=== PATIENT | female | born 1935 | race Caucasian/White ===

== ENCOUNTER 2017-08-12 18:05 | Emergency (ER) | payer MEDICARE ==
[~2017-08-12] VITALS: Ht 170.2 cm; Wt 114.8 kg
[~2017-08-12 18:05] MED LIST: ASPIRIN325 MG PO; ATIVAN0.5 MG PO; CALCIUM 600 +1 EAC8 PO; CAPTOPRIL50 MG PO; CARAFATE1 GM/10 ML PO; CARVEDILOL6.25 MG PO; CORTISPORIN-TC10 ML TOP; CYMBALTA30 MG PO; DITROPAN XL5 MG PO; FEXOFENADINE H180 MG PO; FOLIC ACID1 MG PO; FUROSEMIDE20 MG PO; GABAPENTIN300 MG PO; LEVAQUIN500 MG PO; LEVOTHYROXINE50 MCG PO; MELOXICAM7.5 MG PO; NASONEX17 GM; NITROSTAT0.4 MG PO; OMEPRAZOLE40 MG PO; POTASSIUM CHLO10 ME1 PO; PROAIR HFA INH8.5 GM; RANITIDINE HCL300 MG PO; SELENIUM200 MC1 PO; SIMVASTATIN40 MG PO; TENORMIN100 MG PO; ULTRAM 50MG50 MG PO; VITAMIN B-6100 MG PO; VITAMIN C500 M4 PO; VITAMIN E400 UNI2 PO; ZOFRAN4 MG PO; ZOLOFT20 MG/1 ML PO
--- OUTSIDE RECORDS SUMMARY | 2017-08-12 18:06 | XMS REPORT | Clinical Summary ---
Author Author Lomas [facility] Organization [facility] Address Unknown Phone Unavailable Care Team Providers Care Cold Working Supervisor Name Role Phone Ayaz Romreo DO PCP Allergies Active Allergy Reactions Severity Noted Date Comments Beef Containing Products Rash Low 10/10/2015 Grass Pollen Rash Low 10/10/2015 Penicillins Itching 10/09/2015 Shrimp Rash Low 10/10/2015 Current Medications Prescription Sig. Disp. Refills Start End Date Status Date simvastatin (ZOCOR) 40 MG Take 40 mg by mouth Active tablet nightly. DULoxetine (CYMBALTA) 30 Take 30 mg by mouth Active MG capsule daily. captopril (CAPOTEN) 50 MG Take 50 mg by mouth 2 Active tablet (two) times a day. pantoprazole (PROTONIX) Take 40 mg by mouth Active 40 MG EC tablet daily. meloxicam (MOBIC) 7.5 MG Take 7.5 mg by mouth Active tablet daily. levothyroxine (SYNTHROID, Take 100 mcg by mouth Active LEVOTHROID) 100 MCG every morning. tablet traMADol (ULTRAM) 50 mg Take 50 mg by mouth every Active tablet 6 (six) hours as needed for moderate pain. cetirizine (ZyrTEC) 10 MG Take 10 mg by mouth daily Active tablet as needed for allergies. furosemide (LASIX) 20 MG Take 20 mg by mouth 2 Active tablet (two) times a day. ranitidine (ZANTAC) 150 Take 150 mg by mouth 2 Active MG tablet (two) times a day. oxybutynin (DITROPAN) 5 Take 5 mg by mouth daily. Active MG tablet Active Problems Problem Noted Date Atherosclerosis of [place] coronary artery of [place] heart 10/10/2015 Atrial fibrillation 10/10/2015 Family History Medical History Relation Name Comments Heart disease Father Hyperlipidemia Father Heart disease Mother Hyperlipidemia Mother Hypertension Mother Kidney disease Mother Relation Name Status Comments Father Mother Social History Tobacco Use Types Packs/Day Years Used Date Never Smoker Alcohol Use Drinks/Week oz/Week Comments No Sex Assigned at Date Recorded Not on file Last Filed Vital Signs Not on file Plan of Treatment Health Maintenance Due Date Last Done Comments ZOSTER VACCINE 1997 PNEUMOCOCCAL 2002 POLYSACCHARIDE VACCINE AGE 65 AND OVER PNEUMOCOCCAL-13 2002 INFLUENZA VACCINE 12/19/2016 Results Not on fileafter 08/11/2016 Insurance Payer Benefit Subscriber ID Type Phone Address Plan / Group [employer] CIGNA xxxxxxxxx O [employer] NG O MCR ADV COMMERCIAL MISC MISC xxxxxxxxx 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
[2017-08-12] MEDS ORDERED: MORPHINE SULFATE 2 MG/ML SYR IV STA ×2 (18:16→19:56)
[2017-08-12] MEDS ORDERED: ONDANSETRON HCL INJ 2 MG/ML VIAL IV STA (18:16)
[2017-08-12] MEDS ORDERED: MORPHINE SULFATE 4 MG/ML SYR IV STA (18:18)
[2017-08-12] MEDS ORDERED: SODIUM CHLORIDE 0.9% 1000ML 1,000 ML IV STA ×2 (18:18)
[2017-08-12] MEDS ORDERED: ONDANSETRON HCL INJ 2 MG/ML VIAL ONE (18:24)
[2017-08-12] MEDS ORDERED: CEFTRIAXONE SOD 1 GM VIAL IM ONE (18:30)
[2017-08-12] MEDS ORDERED: MORPHINE SULFATE 2 MG/ML SYR IV ONE (19:00)
[2017-08-12] MEDS ORDERED: ONDANSETRON HCL INJ 2 MG/ML VIAL IV ONE (19:00)
[2017-08-12] MEDS ORDERED: TAMSULOSIN HCL 0.4 MG CAP PO ONE (19:00)
[2017-08-12 19:04] LABS: BASOPHILS % 0.5 % (0.0-1.0); EOSINOPHILS # (AUTO) 0.1 (0.0-0.4); EOSINOPHILS % 0.7 % (0.0-6.0); HEMATOCRIT 40.5 % (34.2-44.1); HEMOGLOBIN 13.5 g/dL (12.0-16.0); LYMPHOCYTES # (AUTO) 1.5 (1.0-3.2); LYMPHOCYTES % 18.4 % (18.0-39.1); MEAN CORPUSCULAR HEMOGLOBIN 28.9 pg (28-32); MEAN CORPUSCULAR HGB CONC 33.3 g/dL (31-35); MEAN CORPUSCULAR VOLUME 86.7 fL (81-99); MONOCYTES # (AUTO) 0.5 (0.2-0.8); MONOCYTES % 5.9 % (4.4-11.3); NEUTROPHILS # (AUTO) 6.2 (2.1-6.9); PLATELET COUNT 258 x10e3/uL (140-360); RED BLOOD COUNT 4.67 x10e6/uL (3.6-5.1); RED CELL DISTRIBUTION WIDTH 14.2 % (11.7-14.4)
[2017-08-12 19:20] LABS: ALANINE AMINOTRANSFERASE 15 IU/L (0-55); ALBUMIN/GLOBULIN RATIO 1.2 (0.8-2.0); ALKALINE PHOSPHATASE 57 IU/L (40-150); ANION GAP 15.2 mmol/L (8-16); BLOOD UREA NITROGEN 27 mg/dL (7-26); BUN/CREATININE RATIO 22 (6-25); CALCIUM 9.3 mg/dL (8.4-10.2); CARBON DIOXIDE 27 mmol/L (22-29); CHLORIDE 100 mmol/L (98-107); CREATININE, SERUM 1.23 mg/dL (0.57-1.11); EST GLOMERULAR FILTRATION RATE 42 ML/MIN (60-); GLUCOSE 148 mg/dL (74-118); MAGNESIUM 1.9 MG/DL (1.3-2.1); POTASSIUM 4.2 mmol/L (3.5-5.1); SODIUM 138 mmol/L (136-145)
[2017-08-12 19:21] LABS: LIPASE < 4 U/L (8-78)
--- NOTE | 2017-08-12 19:32 | Diagnostic Imaging Report ---
EXAM: CT ABDOMEN AND PELVIS without IV CONTRAST INDICATION: Abdomen and flank pain COMPARISON: CT abdomen and pelvis with IV contrast August 12, 2017 TECHNIQUE: The abdomen and pelvis were scanned using a multidetector helical scanner. Coronal and sagittal reformations were obtained. Renal stone protocol performed. IV Contrast: None Oral Contrast: None CTDIvol has been reviewed. It is below the limits set by the Radiation Protocol Committee (RPC). FINDINGS: LOWER THORAX: Ground glass opacities and interstitial thickening could be related to edema or chronic changes. LIVER: No masses BILIARY: Cholecystectomy. No ductal dilation. SPLEEN: No masses PANCREAS: No masses ADRENALS: No nodules RIGHT KIDNEY: Punctate nonobstructing stone in the inferior pole. No hydronephrosis. No ureteral stones. LEFT KIDNEY: Punctate (1 mm) stone at the left ureterovesicular junction resulting in minimal hydroureteronephrosis and perinephric fat stranding. GI TRACT: No wall thickening or obstruction. Small sliding hiatal hernia. VESSELS: Moderate atherosclerotic changes of the abdominal aorta without aneurysm. 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 PERITONEUM/RETROPERITONEUM: No free air or fluid LYMPH NODES: No lymphadenopathy REPRODUCTIVE ORGANS: Not visualized BLADDER: Normal SOFT TISSUES: Normal BONES: No suspicious bone lesions. IMPRESSION: Punctate stone at the left ureterovesicular junction resulting in minimal hydroureteronephrosis and perinephric fat stranding. Signed by: Dr. Lashaun Amato M.D. on 08/12/2017 7:29 PM
[2017-08-12] MEDS ORDERED: CEFTRIAXONE SOD 1 GM VIAL ONE (19:49)
[2017-08-12 20:14] LABS: BILIRUBIN,URINE NEGATIVE (NEGATIVE); CLARITY,URINE CLEAR (CLEAR); COLOR,URINE YELLOW (YELLOW); KETONES,URINE NEGATIVE (NEGATIVE); LEUKOCYTE ESTERASE ,URINE NEGATIVE (NEGATIVE); NITRITE,URINE NEGATIVE (NEGATIVE); PROTEIN,URINE DIPSTICK NEGATIVE (NEGATIVE); URINE UROBILINOGEN 0.2 mg/dL (0.2 - 1)
[2017-08-12] MEDS ORDERED: CEFTRIAXONE SOD 1 GM VIAL IV ONE (20:30)
[2017-08-12] MEDS ORDERED: ZOFRAN ODT4 MG PO (20:47)
[2017-08-12] MEDS ORDERED: CIPRO500 MG PO (20:47)
[2017-08-12] MEDS ORDERED: FLOMAX0.4 MG PO (20:47)
[2017-08-12] MEDS ORDERED: KETOROLAC TROME10 MG PO (20:47)
[2017-08-12 20:51] VITALS: BP 166/82
[2017-08-12 21:49] LABS: BACTERIA,URINE RARE /HPF; EPITHELIAL CELLS,URINE RARE /LPF; RBC,URINE 0-5 /HPF (0-5); WBC,URINE (MAN) 0-5 /HPF (0-5)
== END 2017-08-12 21:03 | disposition home or self-care (01) ==
LOC: ER 18:05
DX: R10.32 Left lower quadrant pain (principal); R10.12 Left upper quadrant pain; M54.9 Dorsalgia, unspecified; I10 Essential (primary) hypertension; I51.9 Heart disease, unspecified
CPT/HCPCS: 36415; 74176; 80053; 81001; 83690; 83735; 85025; 87086; 93005; 99284; J0696; J2270; J2405; J7030

== ENCOUNTER 2017-12-09 09:57 | Emergency (ER) | payer MEDICARE ==
[~2017-12-09] VITALS: Ht 170.2 cm; Wt 113.4 kg
[~2017-12-09 09:57] MED LIST changes: +CIPRO500 MG PO; +FLOMAX0.4 MG PO; +KETOROLAC TROME10 MG PO; +ZOFRAN ODT4 MG PO
[2017-12-09] MEDS ORDERED: HYDROCODONE/APAP 7.5MG-325MG 1 EA TAB PO PRN (10:30)
[2017-12-09 10:58] LABS: CLARITY,URINE HAZY (CLEAR); COLOR,URINE YELLOW (YELLOW)
[2017-12-09 10:59] LABS: BACTERIA,URINE MODERATE /HPF; BILIRUBIN,URINE NEGATIVE (NEGATIVE); KETONES,URINE NEGATIVE (NEGATIVE); LEUKOCYTE ESTERASE ,URINE 1+ (NEGATIVE); NITRITE,URINE POSITIVE (NEGATIVE); PROTEIN,URINE DIPSTICK 1+ (NEGATIVE); RBC,URINE 0-5 /HPF (0-5); URINE UROBILINOGEN 0.2 mg/dL (0.2 - 1); WBC,URINE (MAN) 21-50 /HPF (0-5)
[2017-12-09 11:00] LABS: AMORPHOUS SEDIMENT,URINE FEW (FEW); EPITHELIAL CELLS,URINE RARE /LPF
[2017-12-09] MEDS ORDERED: LIDOCAINE 5% PATCH TP ONE (11:00)
[2017-12-09] MEDS ORDERED: CYCLOBENZAPRINE HCL 10 MG TAB PO ONE (11:00)
[2017-12-09] MEDS ORDERED: DEXAMETHASONE SOD PHOS 10 MG/1 ML VIAL INJ ONE (11:00)
[2017-12-09] MEDS ORDERED: CEFTRIAXONE SOD 1 GM VIAL IM ONE (11:15)
[2017-12-09] MEDS ORDERED: LIDOCAINE HCL 1% LOCAL INJ 20 ML VIAL ONE (11:17)
[2017-12-09] MEDS ORDERED: CLONIDINE HCL 0.2 MG TAB ONE (11:33)
[2017-12-09 11:44] VITALS: BP 114/62
[2017-12-09] MEDS ORDERED: CLONIDINE HCL 0.2 MG TAB PO ONE (12:00)
== END 2017-12-09 12:26 | disposition home or self-care (01) ==
LOC: ER 09:57
DX: M54.5 Low back pain (principal); M62.830 Muscle spasm of back; I10 Essential (primary) hypertension; E03.9 Hypothyroidism, unspecified; F41.9 Anxiety disorder, unspecified; K21.9 Gastro-esophageal reflux disease without esophagitis; Z95.1 Presence of aortocoronary bypass graft
CPT/HCPCS: 81001; 87086; 87186; 99283; J0696; J1100; J2001

== ENCOUNTER → 2018-07-09 | Outpatient (CLI) | payer MEDICARE ==
--- NOTE | 2018-07-09 09:58 | Diagnostic Imaging Report ---
EXAM: US ABDOMEN COMPLETE DATE: 07/09/2018 8:01 AM INDICATION: Hepatitis C COMPARISON: CT abdomen/pelvis, 08/12/2017 FINDINGS: Grayscale and color flow Doppler ultrasound of the abdomen was performed. Liver: 15.3 cm span. Normal parenchymal echogenicity. No intrahepatic mass or bile duct dilatation. Main portal vein 0.9 cm, nondilated, normal hepatopetal flow. Biliary: Surgical absence of the gallbladder. Common bile duct 0.7 cm, normal. Spleen: 8.4 cm span, no splenomegaly. Pancreas: Partially obscured. Visualized portions appear normal with no duct dilatation or mass. Right kidney: 10.5 x 4.3 x 4.3 cm. No hydronephrosis or contour deforming mass. Normal cortical echogenicity. Left kidney: 10.9 x 4.8 x 4.6 cm. No hydronephrosis or contour deforming mass. Left kidney is partially obscured, cortical echogenicity is normal in well-visualized areas. Vessels: Visualized portions of aorta and IVC unremarkable. Ascites: None IMPRESSION: 1. No sonographic evidence for acute abdominal pathology. 2. Surgical absence of the gallbladder with no dilatation of the biliary tree. 3. Normal echogenicity of the liver with no hepatomegaly. Normal diameter and flow of the portal vein. Signed by: Dr. Amado Giron M.D. on 07/09/2018 9:55 AM
== END ==
LOC: US 07:47
PROVIDERS: ATTEND Internal Medicine Gastroenterology
DX: B18.2 Chronic viral hepatitis C (principal); I10 Essential (primary) hypertension; E66.9 Obesity, unspecified; Z71.3 Dietary counseling and surveillance
CPT/HCPCS: 76700

== ENCOUNTER 2018-09-02 07:35 | Emergency (ER) | payer MEDICARE ==
[~2018-09-02] VITALS: Ht 170.2 cm; Wt 113.4 kg
--- OUTSIDE RECORDS SUMMARY | 2018-09-02 07:38 | XMS REPORT ---
Author Author Alfred Chong Organization [employer] Address Unknown Phone Unavailable Care Team Providers Care Sealer Dry Cell Name Role Phone Alfred Chong CP Unavailable Allergies No Known Allergies Problems Problem Type Condition Code Onset Dates Condition Status Problem Back pain M54.9 Active Problem Osteopenia M85.80 Active Problem Rheumatoid arthritis M06.9 Active Assessment Back pain M54.9 Active Problem Polyarthritis M13.0 Active Problem Inflammatory arthritis M19.90 Active Medications No Known Medications Results No Known Results Summary Purpose [employer] Submission
--- OUTSIDE RECORDS SUMMARY | 2018-09-02 07:38 | XMS REPORT ---
Author Author Tonie Grant [facility] [employer] Address Unknown Phone Unavailable Care Team Providers Care Clutch Specialist Name Role Phone Tonie Grant CP Unavailable Allergies, Adverse Reactions, Alerts Substance Reaction Event Type Penicillin rash Non Drug Allergy Problems Problem Type Condition Code Onset Dates Condition Status Assessment Back pain M54.9 Active Problem Back pain M54.9 Active Problem Osteopenia M85.80 Active Problem Rheumatoid arthritis M06.9 Active Assessment Rheumatoid arthritis M06.9 Active Problem Polyarthritis M13.0 Active Problem Inflammatory arthritis M19.90 Active Medications Medication Code System Code Instructions Start Date End Date Status Dosage Carvedilol [facility] 24548951839 12.5 MG Orally Active as directed Levothyroxine Sodium ND 30738069639 75 MCG Orally Once a day Active 1 tablet on an empty stomach in the morning Captopril ND 88008450379 50 MG Orally Active as directed Omeprazole ND 09724920216 40 MG Orally Once a day Active 1 capsule Cetirizine HCl ND 97642536484 10 MG Orally Once a day Active 1 tablet Simvastatin ND 36889312575 40 MG Orally Once a day Active 1 tablet in the evening PredniSONE ND 31690428903 5 MG Orally Once a day August 23, 2017 Active 1 tab Stool Softener [facility] 95334107838 100 MG Orally Once a day Active 1 capsule as needed Humira ND 19292982599 40 MG/0.4ML Subcutaneous July 31, 2018 Active 0.4 ml Hydroxychloroquine Sulfate ND 36688276687 200 MG Orally twice a day August 03, 2017 Active 1 tablet with food or milk Duloxetine HCl ND 44021669607 30 MG Orally Once a day Active 1 capsule Tramadol HCl ND 07217481736 50 MG Orally every 6 hrs Active 1 tablet as needed Oxybutynin Chloride ER ND 36173797742 5 MG Orally Once a day Active 1 tablet Eric Aspirin EC Low Dose ND 35604465507 81 MG Orally Once a day Active 1 tablet Cyclobenzaprine HCl [facility] [address]-07 5 MG Orally Twice a day Active 1 tablet as needed Leflunomide [facility] 92630807694 20 MG Orally Once a day Mar 15, 2018 Active 1 tablet Ranitidine HCl [facility] 42456577673 300 MG Orally Once a day Active 1 tablet at bedtime Furosemide [facility] 41529700727 20 MG Orally Once a day Active 1 tablet Metformin HCl [facility] 67350375263 500 MG Orally Once a day Active 1 tablet with a meal Vital Signs Date/Time: July 31, 2018 BMI 39 Index Weight 247 lbs Height 66.5 in Temperature 96.9 F Cardiac Monitoring Heart Rate 80 /min Blood Pressure Diastolic 89 mm Hg Blood Pressure Systolic 151 mm Hg Results No Known Results Summary Purpose [employer] Submission
--- OUTSIDE RECORDS SUMMARY | 2018-09-02 07:38 | XMS REPORT ---
Author Author Alfred Chong Organization [employer] Address Unknown Phone Unavailable Care Team Providers Care Vest Busheler Name Role Phone Alfred Chong CP Unavailable Allergies No Known Allergies Problems Problem Type Condition Code Onset Dates Condition Status Problem Back pain M54.9 Active Problem Osteopenia M85.80 Active Problem Rheumatoid arthritis M06.9 Active Problem Polyarthritis M13.0 Active Problem Inflammatory arthritis M19.90 Active Medications No Known Medications Results No Known Results Summary Purpose [employer] Submission
--- OUTSIDE RECORDS SUMMARY | 2018-09-02 07:38 | XMS REPORT ---
Author Author Tonie Grant [facility] [employer] Address Unknown Phone Unavailable Care Team Providers Care Mock Up Assembler Name Role Phone Tonie Grant CP Unavailable [...] Instructions Start Date End Date Status Dosage Leflunomide [facility] 10397118247 10MG Inactive TAKE 1 TABLET BY MOUTH ONCE DAILY Simvastatin ND 04065704143 40 MG Orally Once a day Active 1 tablet in the evening Ranitidine HCl [facility] 23863783040 300 MG Orally Once a day Active 1 tablet at bedtime Stool Softener ND 44275800174 100 MG Orally Once a day Active 1 capsule as needed Leflunomide ND 45964063065 10 MG Orally Once a day August 23, 2017 Jun 11, 2018 Active 1 tablet Eric Aspirin EC Low Dose [facility] 04410072395 81 MG Orally Once a day Active 1 tablet Duloxetine HCl [facility] 87711942647 30 MG Orally Once a day Active 1 capsule Levothyroxine Sodium [facility] 81220223911 75 MCG Orally Once a day Active 1 tablet on an empty stomach in the morning Furosemide ND 12450862315 20 MG Orally Once a day Active 1 tablet Leflunomide ND 32309240115 20 MG Orally Once a day Mar 15, 2018 Jul 13, 2018 Active 1 tablet PredniSONE ND 09506726413 5 MG Orally Once a day August 23, 2017 Active 1 tab Captopril ND 11190321713 50 MG Orally Active as directed Tramadol HCl ND 11174895406 50 MG Orally every 6 hrs Active 1 tablet as needed Hydroxychloroquine Sulfate ND 32932951189 200 MG Orally twice a day August 03, 2017 Active 1 tablet with food or milk Oxybutynin Chloride ER [facility] 20509903710 5 MG Orally Once a day Active [address] [facility] 19519354202 12.5 MG Orally Active as directed Vital Signs Date/Time: Mar 15, 2018 BMI 38.68 Index Weight 247 lbs Height 67 in Temperature 97.1 F Cardiac Monitoring Heart Rate 74 /min Blood Pressure Diastolic 70 mm Hg Blood Pressure Systolic 142 mm Hg Results Name Result Date Reference Range Unit Abnormality Flag HIGH SENSITIVITY CRP ----HIGH SENSITIVITY CRP 0.6 [id number] SEE BELOW MG/L CBC W/AUTO DIFF ----PLATELET COUNT 233 23378982 130-400 K/UL ----MCV 87.8 64995524 80.0-100.0 fL ----HEMATOCRIT 38.3 17740660 34.0-45.0 % ----BASOPHILS 0.8 33845620 0.0-2.0 % ----MCHC 32.6 02534400 32.0-35.5 G/DL ----EOSINOPHILS 1.5 40486860 0.0-7.0 % ----MCH 28.7 [id number] 27.0-34.0 PG ----MONOCYTES 10.2 39358453 4.0-13.0 % ----WBC 7.3 24093890 4.0-11.0 K/UL ----HEMOGLOBIN 12.5 84367611 11.5-15.5 G/DL ----RBC 4.36 [id number] 3.80-5.10 M/UL ----LYMPHOCYTES 23.5 19460432 19.0-48.0 % ----RDW 13.3 91602683 11.0-15.0 % ----NEUTROPHILS 64.0 25760000 40.0-74.0 % COMPREHENSIVE METABOLIC PANEL ----CALC A/G RATIO 1.7 85022568 1.0-2.6 RATIO ----CALC GLOBULIN 2.3 11351412 1.9-3.7 G/DL ----ALKALINE PHOSPHATASE 48 69661746 40-142 U/L ----BILIRUBIN, TOTAL <0.2 62404626 <=1.2 MG/DL ----CHLORIDE 102 86515309 95-107 MEQ/L ----ALT 15 16454657 5-40 U/L ----POTASSIUM 3.6 75674188 3.5-5.4 MEQ/L ----AST 12 11836761 9-40 U/L ----SODIUM 144 85639574 133-146 MEQ/L ----CALC BUN/CREAT 18 89306857 6-28 RATIO ---- eGFR NON- AMER. 55 42582050 >60 ML/MIN/1.73 L ----CALCIUM 9.3 [id number] 8.5-10.5 MG/DL ----CARBON DIOXIDE 32 47487098 19-31 MEQ/L H ----ALBUMIN 4.0 10352449 3.5-5.2 G/DL ----PROTEIN, TOTAL 6.3 41943413 6.1-8.3 G/DL ----GLUCOSE 120 70550433 70-99 MG/DL H ----BUN 17 16930571 8-23 MG/DL ----CREATININE 0.97 89797631 0.60-1.30 MG/DL ---- eGFR AMER. 64 72284084 >60 ML/MIN/1.73 SEDIMENTATION RATE ----SEDIMENTATION RATE 2 [id number] 0-20 MM/HOUR Summary Purpose [employer] Submission
--- OUTSIDE RECORDS SUMMARY | 2018-09-02 07:38 | XMS REPORT ---
Author Author Alfred Chong Organization [employer] Address Unknown Phone Unavailable Care Team Providers Care Bundle Helper Name Role Phone Alfred Chong CP Unavailable Allergies No Known Allergies Problems Problem Type Condition Code Onset Dates Condition Status Problem Back pain M54.9 Active Problem Osteopenia M85.80 Active Problem Rheumatoid arthritis M06.9 Active Problem Polyarthritis M13.0 Active Problem Inflammatory arthritis M19.90 Active Medications No Known Medications Results No Known Results Summary Purpose [employer] Submission
--- OUTSIDE RECORDS SUMMARY | 2018-09-02 07:38 | XMS REPORT ---
Author Author Alfred Chong Organization [employer] Address Unknown Phone Unavailable Care Team Providers Care Skip Tender Name Role Phone Alfred Chong CP Unavailable Allergies No Known Allergies Problems Problem Type Condition Code Onset Dates Condition Status Problem Back pain M54.9 Active Problem Osteopenia M85.80 Active Problem Rheumatoid arthritis M06.9 Active Problem Polyarthritis M13.0 Active Problem Inflammatory arthritis M19.90 Active Medications No Known Medications Results No Known Results Summary Purpose [employer] Submission
--- OUTSIDE RECORDS SUMMARY | 2018-09-02 07:38 | XMS REPORT ---
Author Author Tonie Grant [facility] [employer] Address Unknown Phone Unavailable Care Team Providers Care Box Gluer Name Role Phone Tonie Grant CP Unavailable Allergies, Adverse Reactions, Alerts Substance Reaction Event Type Penicillin rash Non Drug Allergy Problems Problem Type Condition Code Onset Dates Condition Status Assessment Back pain M54.9 Active Assessment Encounter for drug therapy Z79.899 Active Problem Back pain M54.9 Active Problem Osteopenia M85.80 Active Problem Rheumatoid arthritis M06.9 Active Assessment Rheumatoid arthritis M06.9 Active Problem Polyarthritis M13.0 Active Problem Inflammatory arthritis M19.90 Active Medications Medication Code System Code Instructions Start Date End Date Status Dosage Levothyroxine Sodium [facility] 27116736218 75 MCG Orally Once a day Active 1 tablet on an empty stomach in the morning Leflunomide ND 44661820851 10 MG Orally Once a day August 23, 2017 Jun 11, 2018 Active 1 tablet Humira ND 91834190026 40 MG/0.4ML Subcutaneous once every 2 wks Apr 26, 2018 August 24, 2018 Active 0.4 ml Duloxetine HCl ND 44547275318 30 MG Orally Once a day Active 1 capsule Simvastatin ND 45198286012 40 MG Orally Once a day Active 1 tablet in the evening Captopril ND 44315890828 50 MG Orally Active as directed Carvedilol ND 50904552240 12.5 MG Orally Active as directed Oxybutynin Chloride ER ND 60189087033 5 MG Orally Once a day Active 1 tablet Tramadol HCl ND 63599379475 50 MG Orally every 6 hrs Active 1 tablet as needed PredniSONE ND 91956055740 5 MG Orally Once a day August 23, 2017 Active 1 tab Furosemide ND 84850966009 20 MG Orally Once a day Active 1 tablet Hydroxychloroquine Sulfate ND 15200308350 200 MG Orally twice a day August 03, 2017 Active 1 tablet with food or milk Eric Aspirin EC Low Dose ND 46046459085 81 MG Orally Once a day Active 1 tablet Ranitidine HCl [facility] 88636274303 300 MG Orally Once a day Active 1 tablet at bedtime Stool Softener [facility] 28579060127 100 MG Orally Once a day Active 1 capsule as needed Leflunomide [facility] 76760886386 20 MG Orally Once a day Mar 15, 2018 Jul 13, 2018 Active 1 tablet Vital Signs Date/Time: Apr 26, 2018 BMI 39.72 Index Weight 253.6 lbs Height 67 in Temperature 97.1 F Cardiac Monitoring Heart Rate 72 /min Blood Pressure Diastolic 68 mm Hg Blood Pressure Systolic 140 mm Hg Results No Known Results Summary Purpose [employer] Submission
--- OUTSIDE RECORDS SUMMARY | 2018-09-02 07:38 | XMS REPORT ---
Author Author Tonie Grant [facility] [employer] Address Unknown Phone Unavailable Care Team Providers Care Sand Operator Name Role Phone Tonie Grant CP Unavailable [...] Start Date End Date Status Dosage Carvedilol [facility] [place] 89195716996 12.5 MG Orally Active as directed Oxybutynin Chloride ER ND 43213843803 5 MG Orally Once a day Active 1 tablet Leflunomide ND 51426940522 20 MG Orally Once a day Mar 15, 2018 Jun 25, 2028 Active 1 tablet Ranitidine HCl ND 79061831947 300 MG Orally Once a day Active 1 tablet at bedtime Humira ND 16540233183 40 MG/0.4ML Subcutaneous once every 2 wks Apr 26, 2018 Jun 07, 2018 Inactive 0.4 ml Furosemide ND 91352393561 20 MG Orally Once a day Active 1 tablet Tramadol HCl ND 29222693764 50 MG Orally every 6 hrs Active 1 tablet as needed Hydroxychloroquine Sulfate ND 57513803031 200 MG Orally twice a day August 03, 2017 Active 1 tablet with food or milk Levothyroxine Sodium ND 34799162461 75 MCG Orally Once a day Active 1 tablet on an empty stomach in the morning Duloxetine HCl ND 79485865630 30 MG Orally Once a day Active 1 capsule Captopril ND 28841349896 50 MG Orally Active as directed PredniSONE ND 71039380223 5 MG Orally Once a day August 23, 2017 Active 1 tab Eric Aspirin EC Low Dose ND 59063561921 81 MG Orally Once a day Active 1 tablet Simvastatin [facility] [place] 63226351087 40 MG Orally Once a day Active 1 tablet in the evening Stool Softener [facility] [place] 67649010895 100 MG Orally Once a day Active 1 capsule as needed Vital Signs Date/Time: Jun 07, 2018 BMI 0.38 Index Weight 245 lbs Height 676 in Temperature 97.0 F Cardiac Monitoring Heart Rate 68 /min Blood Pressure Diastolic 60 mm Hg Blood Pressure Systolic 124 mm Hg Results No Known Results Summary Purpose [employer] Submission
--- OUTSIDE RECORDS SUMMARY | 2018-09-02 07:38 | XMS REPORT | Continuity of Care Document ---
Author Author [facility] Interface Address Unknown Phone Unavailable Problems Problem Status Onset Date Classification Date Reported Comments Source New onset atrial flutter Active 10/01/2015 Problem 12/09/2017 [facility] Chest pain Active 06/07/2015 Problem 12/09/2017 [facility] Polyarthritis Active Problem 08/03/2018 Wyatt Chong Inflammatory arthritis Active Problem 08/03/2018 Wyatt Chong Osteopenia Active Problem 08/03/2018 Wyatt Chong Back pain Active Diagnosis 08/03/2018 Wyatt Chong Encounter for drug therapy Active Diagnosis 04/30/2018 Wyatt Chong Rheumatoid arthritis Active Problem 08/03/2018 Wyatt Chong Medications Medication Details Route Status Patient Instructions Ordering Provider Order Date Source Humira 0.4 ml Subcutaneous Active 40 MG/0.4ML Subcutaneous Rudy 07/31/2018 Wyatt Chong Humira 0.4 ml Subcutaneous Active 40 MG/0.4ML Subcutaneous once every 2 wks Rudy 04/26/2018 Wyatt Chong Leflunomide 1 tablet Orally Active 20 MG Orally Once a day Rudy 03/15/2018 Wyatt Chong Leflunomide 1 tablet Orally Active 10 MG Orally Once a day Rudy 08/23/2017 Wyatt Chong PredniSONE 1 tab Orally Active 5 MG Orally Once a day Rudy 08/23/2017 Wyatt Chong PredniSONE 1 tab Orally Active 5 MG Orally Once a day Rudy 08/23/2017 Wyatt Chong Leflunomide 1 tablet Orally Active 20 MG Orally Once a day Rudy 08/23/2017 Wyatt Chong Hydroxychloroquine Sulfate 1 tablet with food or milk Orally Active 200 MG Orally twice a day Rudy 08/03/2017 Wyatt Chong Prednisone Taper 3 tablets for 5 days, 2 tablets for 5 days and then 1 tablet for 5 days NA Active 5mg Rudy 08/03/2017 Wyatt Chong Furosemide 20 Mg Tablet Daily Active 40mg in am and 20mg in pm Yerramadha 12/06/2015 [facility] Furosemide 20 Mg Tablet, 20 Mg Oral Twice A Day Active 12/06/2015 [facility] Albuterol Sulfate (Proair Hfa Inhaler*) 8.5 Gm Inh, Unknown Dose Active 10/02/2015 [facility] Meloxicam 7.5 Mg Tablet, 7.5 Mg Oral Daily Active 10/02/2015 [facility] Mometasone Furoate (Nasonex) 17 Gm [place], Unknown Dose Active 10/02/2015 [facility] Neomy Sulf/Colist Sul/Hc/Thonz (Cortisporin-Tc Ear Susp) 10 Ml Drops.susp, 5 Drop Topically Three Times A Day as needed for + Active 10/02/2015 [facility] Atenolol (Tenormin) 100 Mg Tablet, 100 Mg Oral Daily Active 06/08/2015 [facility] Gabapentin 300 Mg Capsule, 300 Mg Oral Three Times A Day Active 06/08/2015 [facility] Levofloxacin (Levaquin) 500 Mg Tablet, 500 Mg Oral Daily Active 06/08/2015 [facility] Lorazepam (Ativan*) 0.5 Mg Tablet, 0.5 Mg Oral Twice A Day Active 06/08/2015 [facility] Ondansetron Hcl (Zofran*) 4 Mg Tablet, 4 Mg Oral Three Times A Day as needed Active 06/08/2015 [facility] Sertraline Hcl (Zoloft) 20 Mg/1 Ml Oral.conc, 25 Mg Oral Daily Active 06/08/2015 [facility] Tramadol Hcl (Ultram 50MG*) 50 Mg Tab, 50 Mg Oral Every 6 Hours as needed for Pain Active 06/08/2015 [facility] Duloxetine Hcl (Cymbalta) 30 Mg Capsule.dr, 30 Mg Oral Twice A Day Active 01/24/2013 [facility] Fexofenadine Hcl 180 Mg Tablet, 180 Mg Oral Daily Active 01/24/2013 [facility] Potassium Chloride 10 Meq Tab.er.prt, 10 Meq Oral Daily Active 01/24/2013 [facility] Ranitidine Hcl 300 Mg Tablet, 300 Mg Oral Daily Active 01/24/2013 [facility] Selenium 200 Mcg Capsule, 200 Mcg Oral Daily Active 01/24/2013 [facility] Captopril as directed Orally Active 50 MG Orally Rudy Wyatt Chong Oxybutynin Chloride ER 1 tablet Orally Active 5 MG Orally Once a day Rudy Wyatt Chong Eric Aspirin EC Low Dose 1 tablet Orally Active 81 MG Orally Once a day Rudy Wyatt Chong Ranitidine HCl 1 tablet at bedtime Orally Active 300 MG Orally Once a day [facility] Wyatt Chong Levothyroxine Sodium 1 tablet on an empty stomach in the morning Orally Active 75 MCG Orally Once a day Rudy Wyatt Chong Simvastatin 1 tablet in the evening Orally Active 40 MG Orally Once a day Rudy Wyatt Chong Carvedilol as directed Orally Active 12.5 MG Orally Rudy Wyatt Chong Furosemide 1 tablet Orally Active 20 MG Orally Once a day Rudy Wyatt Chong Stool Softener 1 capsule as needed Orally Active 100 MG Orally Once a day Rudy Wyatt Chong Duloxetine HCl 1 capsule Orally Active 30 MG Orally Once a day Rudy Wyatt Chong Tramadol HCl 1 tablet as needed Orally Active 50 MG Orally every 6 hrs Rudy Wyatt Chong Omeprazole 1 capsule Orally Active 40 MG Orally Once a day Rudy Wyatt Chong Cetirizine HCl 1 tablet Orally Active 10 MG Orally Once a day Rudy Wyatt Chong Cyclobenzaprine HCl 1 tablet as needed Orally Active 5 MG Orally Twice a day Rudy Wyatt Chong Metformin HCl 1 tablet with a meal Orally Active 500 MG Orally Once a day [facility] Wyatt Chong Leflunomide TAKE 1 TABLET BY MOUTH ONCE DAILY NA Active 10MG Rudy Wyatt Chong Ascorbate Calcium (Vitamin C) 500 Mg Tablet Daily Active [facility] Aspirin 325 Mg Tablet Daily as needed Active [facility] Calcium Carb/Vit D3/Minerals (Calcium 600 + D Tablet) 1 Each Tablet Daily Active [facility] Captopril 50 Mg Tablet Twice A Day Active [facility] Carvedilol 6.25 Mg Tablet Twice A Day Active [facility] Ciprofloxacin Hcl (Cipro) 500 Mg Tablet Every 12 Hours Active [facility] Duloxetine Hcl (Cymbalta) 30 Mg Capsule.dr Daily as needed for Anxiety Active [facility] Folic Acid 1 Mg Tablet Twice A Day Active [facility] Ketorolac Tromethamine (Toradol) 10 Mg Tablet Every 6 Hours Active [facility] Levothyroxine Sodium 50 Mcg Tablet Daily Active [facility] Meloxicam 7.5 Mg Tablet Daily Active [facility] Nitroglycerin (Nitrostat) 0.4 Mg Tab.subl as needed for Chest Pain Active [facility] Omeprazole 40 Mg Capsule.dr Daily Active [facility] Ondansetron (Zofran Odt) 4 Mg Tab.rapdis Every 6 Hours as needed for Nausea Active [facility] Oxybutynin Chloride (Ditropan Xl) 5 Mg Tab.er.24 Daily Active [facility] Pyridoxine Hcl (Vitamin B-6) 100 Mg Tablet Daily Active [facility] Simvastatin 40 Mg Tablet Daily Active [facility] Sucralfate (Carafate) 1 Gm/10 Ml Oral.susp As Needed Active [facility] Tamsulosin Hcl (Flomax*) 0.4 Mg Cap Daily Active [facility] Vitamin E 400 Unit Capsule Daily Active [facility] Allergies, Adverse Reactions, Alerts Substance Category Reaction Severity Reaction type Status Date Reported Comments Source Penicillin Adverse Reaction rash Adverse Reaction Active 07/31/2018 Wyatt Chong Immunizations Immunization Date Given Site Status Last Updated Comments Source Results Order Name Results Value Reference Range Date Interpretation Comments Source Amorphous sediment detection in urine sediment by light microscopy Amorphous sediment detection in urine sediment by light microscopy FEW FEW 12/09/2017 [facility] Automated urine sediment leukocyte count by microscopy (number/high power field) Automated urine sediment leukocyte count by microscopy (number/high power field) null 0 - 5 12/09/2017 [facility] Bacteria detection in urine sediment by light microscopy Bacteria detection in urine sediment by light microscopy MODERATE NONE 12/09/2017 [facility] Epithelial cells detection in urine sediment by light microscopy Epithelial cells detection in urine sediment by light microscopy RARE NONE 12/09/2017 [facility] Erythrocytes detection in urine sediment by light microscopy Erythrocytes detection in urine sediment by light microscopy null 0 - 5 12/09/2017 [facility] Specific gravity of Urine by Test strip Specific gravity of Urine by Test strip 1.010 1.010 - 1.025 12/09/2017 [facility] Urine clarity Urine clarity HAZY CLEAR 12/09/2017 [facility] Urine color determination Urine color determination YELLOW YELLOW 12/09/2017 [facility] Urine erythrocytes detection Urine erythrocytes detection NEGATIVE NEGATIVE 12/09/2017 [facility] Urine glucose detection Urine glucose detection NEGATIVE NEGATIVE 12/09/2017 [facility] Urine ketones detection by automated test strip Urine ketones detection by automated test strip NEGATIVE NEGATIVE 12/09/2017 [facility] Urine leukocyte esterase detection by dipstick Urine leukocyte esterase detection by dipstick 1+ NEGATIVE 12/09/2017 [facility] Urine nitrite detection Urine nitrite detection POSITIVE NEGATIVE 12/09/2017 [facility] Urine pH measurement by automated test strip Urine pH measurement by automated test strip 8 5 - 7 12/09/2017 [facility] Urine protein measurement by test strip (mass/volume) Urine protein measurement by test strip (mass/volume) 1+ NEGATIVE 12/09/2017 [facility] Urine total bilirubin measurement (mass/volume) Urine total bilirubin measurement (mass/volume) NEGATIVE NEGATIVE 12/09/2017 [facility] Urine urobilinogen measurement by test strip (mass/volume) Urine urobilinogen measurement by test strip (mass/volume) 0.2 0.2 - 1 12/09/2017 [facility] Automated blood basophil count (count/volume) Automated blood basophil count (count/volume) 0.0 0.0 - 0.1 08/12/2017 [facility] Automated blood basophil count as percentage of total leukocytes Automated blood basophil count as percentage of total leukocytes 0.5 0.0 - 1.0 08/12/2017 [facility] Automated blood eosinophil count Automated blood eosinophil count 0.1 0.0 - 0.4 08/12/2017 [facility] Automated blood eosinophil count as percentage of total leukocytes Automated blood eosinophil count as percentage of total leukocytes 0.7 0.0 - 6.0 08/12/2017 [facility] Automated blood hematocrit (volume fraction) Automated blood hematocrit (volume fraction) 40.5 34.2 - 44.1 08/12/2017 [facility] Automated blood lymphocyte count as percentage ot total leukocytes Automated blood lymphocyte count as percentage ot total leukocytes 18.4 18.0 - 39.1 08/12/2017 [facility] Automated blood monocyte count as percentage of total leukocytes Automated blood monocyte count as percentage of total leukocytes 5.9 4.4 - 11.3 08/12/2017 [facility] Automated blood neutrophil count Automated blood neutrophil count 6.2 2.1 - 6.9 08/12/2017 [facility] Automated blood platelet count (count/volume) Automated blood platelet count (count/volume) 258 140 - 360 08/12/2017 [facility] Automated blood segmented neutrophil count as percentage of total leukocytes Automated blood segmented neutrophil count as percentage of total leukocytes 74.0 38.7 - 80.0 08/12/2017 [facility] Automated erythrocyte mean corpuscular hemoglobin (mass per erythrocyte) Automated erythrocyte mean corpuscular hemoglobin (mass per erythrocyte) 28.9 28 - 32 08/12/2017 [facility] Automated erythrocyte mean corpuscular hemoglobin concentration measurement (mass/volume) Automated erythrocyte mean corpuscular hemoglobin concentration measurement (mass/volume) 33.3 31 - 35 08/12/2017 [facility] Automated erythrocyte mean corpuscular volume Automated erythrocyte mean corpuscular volume 86.7 81 - 99 08/12/2017 [facility] Blood erythrocytes automated count (number/volume) Blood erythrocytes automated count (number/volume) 4.67 3.6 - 5.1 08/12/2017 [facility] Blood hemoglobin measurement (moles/volume) Blood hemoglobin measurement (moles/volume) 13.5 12.0 - 16.0 08/12/2017 [facility] Blood leukocytes automated count (number/volume) Blood leukocytes automated count (number/volume) 8.31 4.8 - 10.8 08/12/2017 [facility] Blood lymphocytes count (number/volume) Blood lymphocytes count (number/volume) 1.5 1.0 - 3.2 08/12/2017 [facility] Blood monocytes automated count (number/volume) Blood monocytes automated count (number/volume) 0.5 0.2 - 0.8 08/12/2017 [facility] Estimated glomerular filtration rate (GFR) determination Estimated glomerular filtration rate (GFR) determination 42 60 08/12/2017 [facility] Glucose measurement Glucose measurement 148 74 - 118 08/12/2017 [facility] Plasma globulin measurement (mass/volume) Plasma globulin measurement (mass/volume) 3.4 2.3 - 3.5 08/12/2017 [facility] Serum or plasma alanine aminotransferase measurement (enzymatic activity/volume) Serum or plasma alanine aminotransferase measurement (enzymatic activity/volume) 15 0 - 55 08/12/2017 [facility] Serum or plasma albumin measurement (mass/volume) Serum or plasma albumin measurement (mass/volume) 4.0 3.5 - 5.0 08/12/2017 [facility] Serum or plasma albumin/globulin mass ratio Serum or plasma albumin/globulin mass ratio 1.2 0.8 - 2.0 08/12/2017 [facility] Serum or plasma alkaline phosphatase measurement (enzymatic activity/volume) Serum or plasma alkaline phosphatase measurement (enzymatic activity/volume) 57 40 - 150 08/12/2017 [facility] Serum or plasma anion gap Serum or plasma anion gap 15.2 8 - 16 08/12/2017 [facility] Serum or plasma calcium measurement (mass/volume) Serum or plasma calcium measurement (mass/volume) 9.3 8.4 - 10.2 08/12/2017 [facility] Serum or plasma carbon dioxide, total measurement (moles/volume) Serum or plasma carbon dioxide, total measurement (moles/volume) 27 22 - 29 08/12/2017 [facility] Serum or plasma chloride measurement (moles/volume) Serum or plasma chloride measurement (moles/volume) 100 98 - 107 08/12/2017 [facility] Serum or plasma creatinine measurement (mass/volume) Serum or plasma creatinine measurement (mass/volume) 1.23 0.57 - 1.11 08/12/2017 [facility] Serum or plasma lipase measurement (enzymatic activity/volume) Serum or plasma lipase measurement (enzymatic activity/volume) null 8 - 78 08/12/2017 [facility] Serum or plasma magnesium measurement (mass/volume) Serum or plasma magnesium measurement (mass/volume) 1.9 1.3 - 2.1 08/12/2017 [facility] Serum or plasma potassium measurement (moles/volume) Serum or plasma potassium measurement (moles/volume) 4.2 3.5 - 5.1 08/12/2017 [facility] Serum or plasma protein measurement (mass/volume) Serum or plasma protein measurement (mass/volume) 7.4 6.5 - 8.1 08/12/2017 [facility] Serum or plasma sodium measurement (moles/volume) Serum or plasma sodium measurement (moles/volume) 138 136 - 145 08/12/2017 [facility] Serum or plasma total bilirubin measurement (mass/volume) Serum or plasma total bilirubin measurement (mass/volume) 0.3 0.2 - 1.2 08/12/2017 [facility] Serum or plasma urea nitrogen measurement (mass/volume) Serum or plasma urea nitrogen measurement (mass/volume) 27 7 - 26 08/12/2017 [facility] Serum or plasma urea nitrogen/creatinine mass ratio Serum or plasma urea nitrogen/creatinine mass ratio 22 6 - 25 08/12/2017 [facility] Red Cell Distribution Width 14.2 11.7 - 14.4 08/12/2017 [facility] IM GRANULOCYTES % 0.5 0.0 - 1.0 08/12/2017 [facility] Absolute Immature Granulocyte (auto 0.04 0 - 0.1 08/12/2017 [facility] Aspartate Amino Transf (AST/SGOT) 14 5 - 34 08/12/2017 [facility] Vital Signs Vital Sign Value Date Comments Source Weight 247 07/31/2018 Wyatt Grayer Height 66.5 07/31/2018 Wyatt Chong Temperature Oral (F) 96.9 F 07/31/2018 Wyatt Chong Heart Rate 80 07/31/2018 Wyatt Chong Diastolic (mm Hg) 89 07/31/2018 Wyatt Chong Systolic (mm Hg) 151 07/31/2018 Wyatt Chong Weight 245 06/07/2018 Wyatt Chong Height 676 06/07/2018 Wyatt Chong Temperature Oral (F) 97.0 F 06/07/2018 Wyatt Chong Heart Rate 68 06/07/2018 Wyatt Chong Diastolic (mm Hg) 60 06/07/2018 Wyatt Chong Systolic (mm Hg) 124 06/07/2018 Wyatt Chong Weight 253.6 04/26/2018 Wyatt Chong Height 67 04/26/2018 Wyatt Chong Temperature Oral (F) 97.1 F 04/26/2018 Wyatt Chong Heart Rate 72 04/26/2018 Wyatt Chong Diastolic (mm Hg) 68 04/26/2018 Wyatt Chong Systolic (mm Hg) 140 04/26/2018 Wyatt Chong Weight 247 03/15/2018 Wyatt Chong Height 67 03/15/2018 Wyatt Chong Temperature Oral (F) 97.1 F 03/15/2018 Wyatt Chong Heart Rate 74 03/15/2018 Wyatt Chong Diastolic (mm Hg) 70 03/15/2018 Wyatt Chong Systolic (mm Hg) 142 03/15/2018 Wyatt Chong Weight 248.8 12/13/2017 Wyatt Chong Height 67 12/13/2017 Wyatt Chong Temperature Oral (F) 97.1 F 12/13/2017 Wyatt Chong Heart Rate 76 12/13/2017 Wyatt Chong Diastolic (mm Hg) 80 12/13/2017 Wyatt Chong Systolic (mm Hg) 152 12/13/2017 Wyatt Chong Weight 255 08/23/2017 Wyatt Chong Height 67 08/23/2017 Wyatt Chong Temperature Oral (F) 96.7 F 08/23/2017 Wyatt Chong Heart Rate 70 08/23/2017 Wyatt Chong Diastolic (mm Hg) 64 08/23/2017 Wyatt Chong Systolic (mm Hg) 142 08/23/2017 Wyatt Grayer Encounters Location Location Details Encounter Type Encounter Number Reason For Visit Attending Provider ADM Date DC Date Status Source Departed Emergency Room [id number] NU SANABRIA 08/12/2017 08/12/2017 [facility] Departed Emergency Room [id number] CAROLIN CAUSEY MD 12/09/2017 12/09/2017 [facility] Procedures Procedure Code Date Perfomer Comments Source CT of abdomen and pelvis without contrast [id number] 08/12/[address] [facility]
--- OUTSIDE RECORDS SUMMARY | 2018-09-02 07:38 | XMS REPORT | Clinical Summary ---
Author Author [facility] Organization [facility] Address Unknown Phone Unavailable Care Team Providers Care Certified Pharmacy Technician Name Role Phone Ayaz Romero DO PCP Allergies Comments Active Allergy Reactions Severity Noted Date Beef Containing Products Rash Low 10/10/2015 Grass Pollen Rash Low 10/10/2015 Penicillins Itching 10/09/2015 Shrimp Rash Low 10/10/2015 Medications End Date Status Medication Sig Dispensed Refills Start Date Active simvastatin (ZOCOR) 40 MG Take 40 mg by 0 tablet mouth nightly. Active DULoxetine (CYMBALTA) 30 Take 30 mg by 0 MG capsule mouth daily. Active captopril (CAPOTEN) 50 MG Take 50 mg by 0 tablet mouth 2 (two) times a day. Active pantoprazole (PROTONIX) Take 40 mg by 0 40 MG EC tablet mouth daily. Active meloxicam (MOBIC) 7.5 MG Take 7.5 mg 0 tablet by mouth daily. Active levothyroxine (SYNTHROID, Take 100 mcg 0 LEVOTHROID) 100 MCG by mouth tablet every morning. Active traMADol (ULTRAM) 50 mg Take 50 mg by 0 tablet mouth every 6 (six) hours as needed for moderate pain. Active cetirizine (ZyrTEC) 10 MG Take 10 mg by 0 tablet mouth daily as needed for allergies. Active furosemide (LASIX) 20 MG Take 20 mg by 0 tablet mouth 2 (two) times a day. Active ranitidine (ZANTAC) 150 Take 150 mg 0 MG tablet by mouth 2 (two) times a day. Active oxybutynin (DITROPAN) 5 Take 5 mg by 0 MG tablet mouth daily. Active Problems Problem Noted Date Atherosclerosis of [place] coronary artery of [place] heart 10/10/2015 Atrial fibrillation 10/10/2015 Family History Medical History Relation Name Comments Heart disease Father Hyperlipidemia Father Heart disease Mother Hyperlipidemia Mother Hypertension Mother Kidney disease Mother Relation Name Status Comments Father Mother Social History Date Tobacco Use Types Packs/Day Years Used Never Smoker Alcohol Use Drinks/Week oz/Week Comments No Sex Assigned at Date Recorded Not on file Industry Job Start Date Occupation Not on file Not on file Not on file Travel End Travel History Travel Start No recent travel history available. Last Filed Vital Signs Not on file Plan of Treatment Health Maintenance Due Date Last Done Comments SHINGLES VACCINES (#1) 1987 65+ PNEUMOCOCCAL VACCINE 2002 (1 of 2 - PCV13) PNEUMOCOCCAL 2002 POLYSACCHARIDE VACCINE AGE 65 AND OVER INFLUENZA VACCINE 12/19/2018 Results Not on fileafter 09/01/2017 Insurance Payer Benefit Subscriber ID Type Phone Address Plan / Group CIG[employer] CIGNA xxxxxxxxx HMO HEALTHSPRI NG HMO MCR ADV COMMERCIAL MISC MISC xxxxxxxxx 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 Advance Directives Patient has advance care planning documents, and code status on file. For more i nformation, please contact: Abebe Lakhani [address] [place] [address] Date Inactivated Comments Code Status Date Activated 10/16/2015 7:33 PM Full Code 10/10/2015 3:41 PM Code Status decision reached by: Patient
--- OUTSIDE RECORDS SUMMARY | 2018-09-02 07:38 | XMS REPORT ---
Author Author Tonie Grant [facility] eClinicalWorks Address Unknown Phone Unavailable Care Team Providers Care Director Nicu Name Role Phone Tonie Grant CP Unavailable Allergies, Adverse Reactions, Alerts Substance Reaction Event Type Penicillin rash Non Drug Allergy Problems Problem Type Condition Code Onset Dates Condition Status Assessment Back pain M54.9 Active Problem Back pain M54.9 Active Problem Osteopenia M85.80 Active Problem Rheumatoid arthritis M06.9 Active Assessment Rheumatoid arthritis M06.9 Active Assessment Inflammatory arthritis M19.90 Active Problem Polyarthritis M13.0 Active Problem Inflammatory arthritis M19.90 Active Medications Medication Code System Code Instructions Start Date End Date Status Dosage Tramadol HCl ND 34165271395 50 MG Orally every 6 hrs Active 1 tablet as needed Carvedilol ND 15586376736 12.5 MG Orally Active as directed Captopril ND 68516937425 50 MG Orally Active as directed Furosemide ND 61500704425 20 MG Orally Once a day Active 1 tablet Hydroxychloroquine Sulfate ND 82896778502 200 MG Orally twice a day August 03, 2017 Active 1 tablet with food or milk Simvastatin ND 36724963460 40 MG Orally Once a day Active 1 tablet in the evening Eric Aspirin EC Low Dose ND 25587103550 81 MG Orally Once a day Active 1 tablet Ranitidine HCl ND 52713492901 300 MG Orally Once a day Active 1 tablet at bedtime Stool Softener ND 62863271290 100 MG Orally Once a day Active 1 capsule as needed PredniSONE NDC 0 5 MG Orally Once a day August 23, 2017 Jun 11, 2018 Active 1 tab Oxybutynin Chloride ER ND 96861227643 5 MG Orally Once a day Active 1 tablet Duloxetine HCl ND 47156893082 30 MG Orally Once a day Active 1 capsule Levothyroxine Sodium ND 50728020250 75 MCG Orally Once a day Active 1 tablet on an empty stomach in the morning Leflunomide ND 14539637492 20 MG Orally Once a day August 23, 2017 Jun 11, 2018 Active 1 tablet Vital Signs Date/Time: December 13, 2017 BMI 38.96 Index Weight 248.8 lbs Height 67 in Temperature 97.1 F Cardiac Monitoring Heart Rate 76 /min Blood Pressure Diastolic 80 mm Hg Blood Pressure Systolic 152 mm Hg Results No Known Results Summary Purpose eClinicalWorks Submission
--- NOTE | 2018-09-02 09:57 | Diagnostic Imaging Report ---
EXAMINATION: CHEST 2 VIEWS INDICATION: Status post fall onto right chest. COMPARISON: CT abdomen/pelvis 08/12/2017 and chest radiograph 12/03/2015. FINDINGS: The lateral radiograph is limited secondary to motion and portable technique. TUBES and LINES: None. LUNGS: Lungs are moderately inflated. Minimal patchy bibasilar atelectasis. There is no evidence of pneumonia or pulmonary edema. PLEURA: No pleural effusion or pneumothorax. HEART AND MEDIASTINUM: The cardiomediastinal silhouette is unremarkable. BONES AND SOFT TISSUES: Age indeterminate mild loss of vertebral body height at T12. Status post median sternotomy. Levoconvex scoliosis of the thoracic spine. UPPER ABDOMEN: No free air under the diaphragm. IMPRESSION: Age indeterminate mild loss of vertebral body height at T12. Suggest correlation for point tenderness at this location. No evidence of displaced rib fracture or pneumothorax. Signed by: Dr. Wesly Goldberg MD on 09/02/2018 9:54 AM
[2018-09-02 10:08] LABS: CLARITY,URINE CLEAR (CLEAR); COLOR,URINE YELLOW (YELLOW); LEUKOCYTE ESTERASE ,URINE NEGATIVE (NEGATIVE)
[2018-09-02 10:09] LABS: BILIRUBIN,URINE NEGATIVE (NEGATIVE); KETONES,URINE NEGATIVE (NEGATIVE); NITRITE,URINE NEGATIVE (NEGATIVE); PROTEIN,URINE DIPSTICK NEGATIVE (NEGATIVE); URINE UROBILINOGEN 0.2 mg/dL (0.2 - 1)
--- NOTE | 2018-09-02 10:15 | Diagnostic Imaging Report ---
EXAM: Lumbar spine radiographs-5 views; right hip radiographs-2 views; AP radiograph of the pelvis-1 view INDICATION: Status post fall. COMPARISON: CT abdomen/pelvis 08/12/2017 and right hip radiographs 09/02/2018. FINDINGS: Lumbar spine: BONES: Dextroconvex scoliosis of the lumbar spine. No acute displaced fractures. Possible mild loss of vertebral body height at the T12 level, as noted on same day chest radiograph. No evidence of lumbar spine vertebral body height loss. DISCS: Moderate degenerative disc changes, most pronounced at L5-S1. JOINTS: Moderate facet degenerative changes, most pronounced at L5-S1. OTHER: Diffuse atherosclerotic vascular calcifications. Right Hip and Pelvis: Status post right total hip arthroplasty. The hardware appears intact. Alignment is unremarkable. No evidence of acute displaced fracture. There are moderate left hip, bilateral sacroiliac, and pubic symphysis degenerative changes. Bowel gas partially obscures visualization of the sacrum. Surgical clips project over the left inguinal region. IMPRESSION: Possible mild loss of vertebral body height at T12 level, as noted on same day chest radiograph. No evidence of acute displaced fracture in the lumbar spine, pelvis, or right hip. Status post right total hip arthroplasty with intact hardware and unremarkable alignment. Signed by: Dr. Wesly Goldberg MD on 09/02/2018 10:12 AM
[2018-09-02 10:18] LABS: EPITHELIAL CELLS,URINE FEW /LPF
--- NOTE | 2018-09-02 10:26 | Diagnostic Imaging Report ---
Right shoulder radiographs-2 views HISTORY: Status post fall. COMPARISON: None FINDINGS: There is non well-corticated small bony fragment along the anterior/inferior humeral head and inferior glenoid rim. There is a well-corticated bony fragment adjacent to the posterior aspect of the glenoid. The glenohumeral alignment is maintained. Mild right acromion clavicular and glenohumeral joint degenerative changes. IMPRESSION: Small bony fragment along the anterior inferior humeral head/inferior glenoid rim, which may reflect a minimally displaced fracture. Alternatively, this may reflect a loose body or osteophyte. Suggest CT for further evaluation given trauma. Well-corticated bone along the posterior aspect of the glenoid, suggestive of prior trauma. Signed by: Dr. Wesly Goldberg MD on 09/02/2018 10:23 AM
== END 2018-09-02 12:06 | disposition home or self-care (01) ==
LOC: ER 07:35
DX: M25.511 Pain in right shoulder (principal); M25.551 Pain in right hip; M54.5 Low back pain; W01.0XXA Fall on same level from slipping, tripping and stumbling without subsequent striking against object, initial encounter; Y92.000 Kitchen of unspecified non-institutional (private) residence as the place of occurrence of the external cause; I10 Essential (primary) hypertension; E78.5 Hyperlipidemia, unspecified; E03.9 Hypothyroidism, unspecified; K21.9 Gastro-esophageal reflux disease without esophagitis; F41.9 Anxiety disorder, unspecified; Z95.1 Presence of aortocoronary bypass graft
CPT/HCPCS: 71046; 72110; 81001; 99283

== ENCOUNTER 2018-09-03 19:19 | Observation (INO) | payer MEDICARE ==
[~2018-09-03] VITALS: Ht 170.2 cm; Wt 115.2 kg
--- OUTSIDE RECORDS SUMMARY | 2018-09-03 19:23 | XMS REPORT | Clinical Summary ---
Author Author [facility] Organization [facility] Address Unknown Phone Unavailable Care Team Providers Care Marketing Automation Manager Name Role Phone Ayaz Romero DO PCP [...] Active Problems Problem Noted Date Atherosclerosis of [place] coronary artery of [place] heart 10/10/2015 Atrial fibrillation 10/10/2015 Family History [...] INFLUENZA VACCINE 12/19/2018 Results Not on fileafter 09/02/2017 Insurance Payer Benefit Subscriber ID Type Phone Address Plan / Group C[employer] CIGNA xxxxxxxxx HMO HEALTHSPRI NG HMO MCR ADV COMMERCIAL MISC MISC xxxxxxxxx 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 Advance Directives Patient has advance care planning documents, and code status on file. For more i nformation, please contact: Abebe Lakhani [address] [place] [address] Date Inactivated Comments Code Status Date Activated 10/16/2015 7:33 PM Full Code 10/10/2015 3:41 PM Code Status decision reached by: Patient
--- OUTSIDE RECORDS SUMMARY | 2018-09-03 19:29 | XMS REPORT | Clinical Summary ---
Author Author [facility] Organization [facility] Address Unknown Phone Unavailable Care Team Providers Care Irrigation Equipment Mechanic Name Role Phone Ayaz Romero DO PCP [...] Active Problems Problem Noted Date Atherosclerosis of [place] coronary artery of [place] heart 10/10/2015 Atrial fibrillation 10/10/2015 Family History [...] more i nformation, please contact: Abebe Lakhani [address] [place] [address] Date Inactivated Comments Code Status Date Activated 10/16/2015 7:33 PM Full Code 10/10/2015 3:41 PM Code Status decision reached by: Patient
[2018-09-03] MEDS ORDERED: ASPIRIN 81 MG CHEW TAB PO ONE ×2 (19:45→23:30)
[2018-09-03 20:08] LABS: ALBUMIN 3.6 g/dL (3.5-5.0); ANION GAP 15.7 mmol/L (8-16); CALCIUM 9.8 mg/dL (8.4-10.2); CREATININE, SERUM 1.1 mg/dL (0.57-1.11); POTASSIUM 3.7 mmol/L (3.5-5.1)
--- NOTE | 2018-09-03 20:10 | Diagnostic Imaging Report ---
EXAMINATION: CHEST SINGLE (PORTABLE) INDICATION: Chest pain ^chest pain ^[id number] ^195 ^Y COMPARISON: 09/02/2018 FINDINGS: TUBES and LINES: None. LUNGS: Lungs are moderately inflated. Minimal patchy bibasilar atelectasis. There is no evidence of pneumonia or pulmonary edema. PLEURA: No pleural effusion or pneumothorax. HEART AND MEDIASTINUM: The cardiomediastinal silhouette is unremarkable. BONES AND SOFT TISSUES: Age indeterminate mild loss of vertebral body height at T12. Status post median sternotomy. Levoconvex scoliosis of the thoracic spine. UPPER ABDOMEN: No free air under the diaphragm. IMPRESSION: Age indeterminate mild loss of vertebral body height at T12. Suggest correlation for point tenderness at this location. No evidence of displaced rib fracture or pneumothorax. Signed by: Dr. Driss Xie M.D. on 09/03/2018 8:07 PM
[2018-09-03 20:15] LABS: CREATINE KINASE MB 0.8 ng/mL (0-5.0)
[2018-09-03 23:00] LABS: BASOPHILS # (AUTO) 0.1 (0.0-0.1); BASOPHILS % 0.8 % (0.0-1.0); EOSINOPHILS # (AUTO) 0.1 (0.0-0.4); EOSINOPHILS % 2.2 % (0.0-6.0); HEMATOCRIT 36.6 % (34.2-44.1); HEMOGLOBIN 11.8 g/dL (12.0-16.0); LYMPHOCYTES # (AUTO) 1.7 (1.0-3.2); LYMPHOCYTES % 26.6 % (18.0-39.1); MEAN CORPUSCULAR HEMOGLOBIN 29.6 pg (28-32); MEAN CORPUSCULAR HGB CONC 32.2 g/dL (31-35); MEAN CORPUSCULAR VOLUME 91.7 fL (81-99); MONOCYTES # (AUTO) 0.7 (0.2-0.8); MONOCYTES % 11.4 % (4.4-11.3); NEUTROPHILS # (AUTO) 3.8 (2.1-6.9); NEUTROPHILS % 58.7 % (38.7-80.0); PLATELET COUNT 189 x10e3/uL (140-360); RED BLOOD COUNT 3.99 x10e6/uL (3.6-5.1); RED CELL DISTRIBUTION WIDTH 13.4 % (11.7-14.4)
[2018-09-03] MEDS ORDERED: SODIUM CHLORIDE FLUSH 10 ML SYR INJ PRN (23:30)
[2018-09-03] MEDS ORDERED: ONDANSETRON HCL INJ 2MG/ML 2ML 2 MG/ML VIAL IV PRN (23:30)
[2018-09-03] MEDS ORDERED: NITROGLYCERIN 0.4 MG SUBL SL PRN (23:30)
--- OUTSIDE RECORDS SUMMARY | 2018-09-03 23:37 | XMS REPORT | Clinical Summary ---
Author Author [facility] Address Unknown Phone Unavailable Care Team Providers Care Junior Sales Assistant Name Role Phone Ayaz Romero DO PCP [...] Active Problems Problem Noted Date Atherosclerosis of [place] coronary artery of [place] heart 10/10/2015 Atrial fibrillation 10/10/2015 Family History [...] more i nformation, please contact: Abebe Lakhani [address] [place] [address] Date Inactivated Comments Code Status Date Activated 10/16/2015 7:33 PM Full Code 10/10/2015 3:41 PM Code Status decision reached by: Patient
[2018-09-04] VITALS (8 sets, daily range): BP systolic 125–151; BP diastolic 57–67
[2018-09-04] MEDS ORDERED: BENZONATATE100 MG PO (00:21)
[2018-09-04] MEDS ORDERED: LEFLUNOMIDE20 MG PO (00:21)
[2018-09-04] MEDS ORDERED: CYMBALTA30 MG PO (00:21)
[2018-09-04] MEDS ORDERED: KETOCONAZOLE15 GM TOP (00:21)
[2018-09-04] MEDS ORDERED: SIMVASTATIN40 MG PO (00:21)
[2018-09-04] MEDS ORDERED: CAPTOPRIL50 MG PO (00:21)
[2018-09-04] MEDS ORDERED: LEVOXYL75 MCG PO (00:21)
[2018-09-04] MEDS ORDERED: TERBINAFINE HC250 MG PO (00:21)
[2018-09-04] MEDS ORDERED: PREDNISONE5 MG PO (00:21)
[2018-09-04] MEDS ORDERED: GLUMETZA500 MG PO (00:21)
[2018-09-04] MEDS ORDERED: CARVEDILOL12.5 MG PO (00:21)
[2018-09-04] MEDS ORDERED: OMEPRAZOLE40 MG PO (00:21)
[2018-09-04] MEDS ORDERED: LISINOPRIL40 MG PO (00:21)
[2018-09-04] MEDS ORDERED: LASIX20 MG PO (00:21)
[2018-09-04] MEDS: FAMOTIDINE 20 MG/2 ML VIAL IV SCH ×3 (02:12→20:42)
[2018-09-04 04:56] LABS: BASOPHILS # (AUTO) 0.1 (0.0-0.1); BASOPHILS % 0.8 % (0.0-1.0); EOSINOPHILS # (AUTO) 0.2 (0.0-0.4); EOSINOPHILS % 2.3 % (0.0-6.0); HEMATOCRIT 36.6 % (34.2-44.1); HEMOGLOBIN 11.9 g/dL (12.0-16.0); LYMPHOCYTES # (AUTO) 1.8 (1.0-3.2); LYMPHOCYTES % 26.6 % (18.0-39.1); MEAN CORPUSCULAR HGB CONC 32.5 g/dL (31-35); MEAN CORPUSCULAR VOLUME 92.2 fL (81-99); MONOCYTES # (AUTO) 0.9 (0.2-0.8); MONOCYTES % 13.4 % (4.4-11.3); NEUTROPHILS # (AUTO) 3.7 (2.1-6.9); NEUTROPHILS % 56.6 % (38.7-80.0); PLATELET COUNT 165 x10e3/uL (140-360); RED BLOOD COUNT 3.97 x10e6/uL (3.6-5.1); RED CELL DISTRIBUTION WIDTH 13.5 % (11.7-14.4)
[2018-09-04 05:31] LABS: POTASSIUM 3.1 mmol/L (3.6-5.1)
[2018-09-04 05:34] LABS: ANION GAP 15.1 mmol/L (8-16)
[2018-09-04 05:35] LABS: CREATININE, SERUM 1.1 mg/dL (0.6-1.1)
--- NOTE | 2018-09-04 06:46 | NUR ---
Patient endorsed to next shift for continuity of care.
[2018-09-04 06:53] LABS: ALBUMIN 2.9 g/dL (3.5-5.0); CHOL/HDL RATIO 3.4 (3.0-3.6)
[2018-09-04] MEDS ORDERED: FUROSEMIDE40 MG PO (07:23)
[2018-09-04 07:27] LABS: CALCIUM 9.8 mg/dL (8.4-10.2)
[2018-09-04 07:45] LABS: CREATINE KINASE MB 0.6 ng/mL (0-5.0)
[2018-09-04] MEDS: ASPIRIN 81 MG ENTERIC COATED PO SCH (09:00)
--- NOTE | 2018-09-04 09:44 | NUR ---
Received patient this morning, a/ox3, in bed and no resp distress, denies any chest pains at this time, VSS and LS CTAB, tolerated breakfast, no N/V, Left leg slightly swollen that right, DPP +1-2 bilaterally, call light within reach, will monitor
--- NOTE | 2018-09-04 10:24 | NUR ---
Reported K+ level to ASHLEY Reaves, orders for Mg level stat and to replace with 20 meq KCL and consult Dr. Ceballos
--- NOTE | 2018-09-04 10:35 | NUR ---
Consult notification to Dr. Ceballos's group and spoke with Irena
[2018-09-04] MEDS ORDERED: POTASSIUM CHLORIDE 20 MEQ TAB CR PO ONE (11:00)
[2018-09-04 11:57] LABS: CREATINE KINASE MB 0.6 ng/mL (0-5.0)
--- NOTE | 2018-09-04 12:02 | NUR ---
Rounds by Dr. Ceballos, does not take patient's insurance and will reconsult Dr. Kapoor
--- NOTE | 2018-09-04 12:29 | NUR ---
Dr. Kapoor has been called for consult
--- NOTE | 2018-09-04 13:18 | NUR ---
CASE MANAGEMENT ASSESSMENT Lithographic Proofer Apprentice to bedside to discuss plan of care with patient/family. CM/SW role and care transitions discussed. Anticipated discharge plan discussed along with duration of care. CM/SW discussed patients right to make decisions in care. CM/SW work hours given. Patient lives: with her and granddaughter Admit/Transfer: thru ED Hospital/ER visits since last admit: 1 POA/Emergency contact: Tramaine Abdi [phone] Current/Previous Home Health: previously had home health but does not remember the name of the company PCP/Follow-up Care: Dr. Ayaz Romero - PCP, cardiology - [facility]; CM advised pt to follow up with one of her MDs within 5 days of discharge. Pt verbalized understanding Current/Previous DME: shower chair, RW, rollator, cane, grabber Medications (referring to index hospitalization or the first time you were in the hospital) a. Were changes made in your medications when you were in the hospital on [date of index hospitalization]? n/a b. Did you understand the changes? n/a c. Were you able to obtain your new medications right away? n/a d. Were you able to take your medications like the doctor wanted you to? n/a e. Did the hospital give you an accurate, easy to understand list of medications when you left? n/a Scale of 1-10 how comfortable does patient feel with disease management in outpatient settin Other Services: none Employment Status: retired Areas of Concerns: chest pain; recent falls Referral Needs: may need home health Education Needs: medical management, safety IMM/SAMANO given and signed (if applicable): SAMANO in chart Goal for discharge: home CM/SW left business card at the bedside with contact information. Name and number was also written on the patients whiteboard. Patient verbalized understanding of discussion. CM will follow-up with ongoing discharge and transition of care needs.
[2018-09-04] MEDS ORDERED: ACETAMINOPHEN 325 MG TAB PO PRN (18:30)
--- NOTE | 2018-09-04 18:38 | NUR ---
Patient signed consent for stress test, will be NPO from midnight and patient aware
--- NOTE | 2018-09-04 18:52 | NUR ---
Patient picked up and to Nuclear medicine at this time for imaging
--- NOTE | 2018-09-04 18:56 | Consultation ---
DATE OF CONSULTATION: 09/04/2018 Cardiology Consultation REASON FOR CONSULTATION: Chest pain. HISTORY OF PRESENT ILLNESS: This is an 83-year-old woman with history of coronary artery disease status post 3-vessel CABG in 2014, hypertension, hyperlipidemia, and hypothyroidism, who presents with complaints of chest pain. The patient reports she was in her usual state of health until yesterday when she developed chest pain, 8 to 10/10 in severity. She was unable to characterize the pain, but stated it radiated to her back between her shoulder blades, the pain lasted approximately 1 hour and was associated with shortness of breath. She called EMS, who transported her to the ER for further evaluation. Pain reportedly was relieved by two sublingual nitroglycerin. The patient otherwise denies edema, orthopnea, PND, or palpitations. REVIEW OF SYSTEMS: Negative except as per HPI. PAST MEDICAL HISTORY: 1. Coronary artery disease status post 3-vessel CABG in 2014. 2. Hypertension. 3. Hyperlipidemia. 4. Hypothyroidism. PAST SURGICAL HISTORY: 1. Tonsillectomy. 2. Hysterectomy and section. 3. Cholecystectomy. 4. Hip surgery. 5. Knee surgery. 6. CABG. 7. Cataract surgery. ALLERGIES: PLEASE SEE EMR. MEDICATIONS: Please see medication list. SOCIAL HISTORY: She denies tobacco or illicit drugs. She does drink alcohol occasionally. FAMILY HISTORY: Pertinent for brothers with heart disease. PHYSICAL EXAMINATION: VITAL SIGNS: Temperature 96.9 degrees, pulse 70, respiratory rate 20, blood pressure 132/57, and oxygen saturation 98% on room air. GENERAL: Obese woman, in no acute distress. HEENT: Normocephalic, atraumatic. Pupils equal. No scleral icterus. NECK: Supple. No thyromegaly or cervical lymphadenopathy. No carotid bruits. LUNGS: Clear to auscultation bilaterally. No wheezes or crackles. CARDIOVASCULAR: Normal rate. Regular rhythm. No murmur. Normal S1, S2. ABDOMEN: Soft nontender. EXTREMITIES: No edema. NEUROLOGIC: Nonfocal exam. LABS: WBC 6.57, hemoglobin 11.9, hematocrit 36.6, platelets 165. Sodium 141, potassium 3.1, chloride 103, CO2 of 26, BUN 19, and creatinine 1.1. Troponin 0.011. BNP 88.7. Triglycerides 166, cholesterol 150, LDL 73, HDL 44. EKG; sinus rhythm with sinus arrhythmia, moderate voltage criteria for LVH. IMPRESSION: 1. Chest pain concerning for unstable angina. 2. Coronary artery disease status post 3-vessel CABG. 3. Hypertension. 4. Hyperlipidemia. 5. Hypothyroidism. RECOMMENDATIONS: No evidence of myocardial infarction on serial cardiac biomarkers thus far. Given the patient's cardiac history and chest pain which she describes as similar to the pain leading up to her bypass, we will proceed with ischemic evaluation with nuclear stress test, echocardiogram to evaluate for structural heart disease. Continue home cardiac medications otherwise. Thank you for this consult. We will continue to follow. Ashlee Marin MD ABS/MODL /[id number]
[2018-09-04] MEDS ORDERED: HYDRALAZINE HCL 20 MG/ML VIAL IV PRN (19:15)
[2018-09-05] VITALS (8 sets, daily range): BP systolic 137–175; BP diastolic 63–74
[2018-09-05] MEDS: LEVOTHYROXINE SODIUM 75 MCG TAB PO SCH (05:27)
[2018-09-05 05:54] LABS: BASOPHILS # (AUTO) 0.1 (0.0-0.1); BASOPHILS % 1.1 % (0.0-1.0); EOSINOPHILS # (AUTO) 0.2 (0.0-0.4); EOSINOPHILS % 2.7 % (0.0-6.0); HEMOGLOBIN 11.3 g/dL (12.0-16.0); LYMPHOCYTES # (AUTO) 1.8 (1.0-3.2); LYMPHOCYTES % 31.3 % (18.0-39.1); MEAN CORPUSCULAR HEMOGLOBIN 29.6 pg (28-32); MEAN CORPUSCULAR HGB CONC 31.4 g/dL (31-35); MEAN CORPUSCULAR VOLUME 94.2 fL (81-99); MONOCYTES # (AUTO) 0.8 (0.2-0.8); NEUTROPHILS # (AUTO) 2.9 (2.1-6.9); NEUTROPHILS % 50.5 % (38.7-80.0); PLATELET COUNT 173 x10e3/uL (140-360); RED BLOOD COUNT 3.82 x10e6/uL (3.6-5.1); RED CELL DISTRIBUTION WIDTH 13.8 % (11.7-14.4)
[2018-09-05 06:12] LABS: ANION GAP 10.9 mmol/L (8-16); CALCIUM 8.7 mg/dL (8.4-10.2); CREATININE, SERUM 0.99 mg/dL (0.57-1.11); PHOSPHORUS 3.6 MG/DL (2.3-4.7); POTASSIUM 3.9 mmol/L (3.5-5.1)
[2018-09-05 06:30] LABS: THYROID STIMULATING HORMONE 3.116 uIU/mL (0.350-4.940)
[2018-09-05] MEDS ORDERED: ONDANSETRON HCL 4 MG ORAL DISINTEGRATING TAB PO PRN (06:30)
[2018-09-05] MEDS: CAPTOPRIL 25 MG TAB PO SCH ×2 (08:43→17:20)
[2018-09-05] MEDS: ASPIRIN 81 MG ENTERIC COATED PO SCH (08:43)
[2018-09-05] MEDS: FOLIC ACID 1 MG TAB PO SCH ×2 (08:44→17:21)
[2018-09-05] MEDS: PREDNISONE 5 MG TAB PO SCH (08:44)
[2018-09-05] MEDS: TERBINAFINE 250 MG TAB PO SCH (08:44)
[2018-09-05] MEDS: SIMVASTATIN 40 MG TAB PO SCH (08:44)
[2018-09-05] MEDS: ASCORBIC ACID 500 MG TAB PO SCH (08:44)
[2018-09-05] MEDS: DULOXETINE HCL 30 MG DELAYED RELEASE PO SCH ×2 (08:44→17:20)
[2018-09-05] MEDS: PANTOPRAZOLE SOD 40 MG TABEC PO SCH (08:44)
[2018-09-05] MEDS: BENZONATATE 100 MG CAP PO SCH (08:44)
[2018-09-05] MEDS ORDERED: NON-FORMULARY MEDICATION (Leflunomide 20 MG) PO SCH (09:00)
[2018-09-05] MEDS: NON-FORMULARY MEDICATION (Leflunomide 20 MG) PO SCH (09:00)
[2018-09-05] MEDS: CARVEDILOL 12.5 MG TAB PO SCH ×2 (09:00→17:20)
[2018-09-05] MEDS: KETOCONAZOLE 2% CREAM/15 GM TUBE TOP SCH ×2 (09:00→17:21)
[2018-09-05] MEDS: VITAMIN E 400 UNIT CAP PO SCH (09:00)
[2018-09-05] MEDS ORDERED: REGADENOSON 0.4 MG/5 ML SYR IV ONE (09:10)
--- NOTE | 2018-09-05 09:51 | NUR ---
PATIENT PICKED UP FOR STRESS TEST, WILL CONTINUE TO MONITOR SITUATION
--- NOTE | 2018-09-05 10:57 | NUR ---
Patient returned from having a stress test at this time. Medical [facility]ation Professional will process imaging and we will be notified of outcome
--- NOTE | 2018-09-05 10:58 | NUR ---
Rounds by by Dr. Calderon and Gilmer, orders to obtain consent for I/D to [facility]
--- NOTE | 2018-09-05 13:15 | Progress Note ---
DATE: 09/05/2018 Cardiology Progress Note SUBJECTIVE: The patient denies chest pain or shortness of breath. She was seen for nuclear stress test. OBJECTIVE: VITAL SIGNS: Temperature 97 degrees, pulse 69, respiratory rate 20, blood pressure 135/74, and oxygen saturation 94% on room air. GENERAL: Awake, alert, in no acute distress. LUNGS: Clear to auscultation bilaterally. No wheezes or crackles. CARDIOVASCULAR: Normal rate, regular rhythm. No murmur. Normal S1, S2. ABDOMEN: Soft, nontender. EXTREMITIES: No edema. CARDIAC MEDICATIONS: Simvastatin 40 mg p.o. at bedtime, captopril 50 mg p.o. b.i.d., aspirin 81 mg p.o. daily, levothyroxine 75 mcg p.o. daily, carvedilol 12.5 mg p.o. b.i.d. LABORATORY DATA: WBC 5.63, hemoglobin 0.3, hematocrit 36, platelets 173. Sodium 143, potassium 3.9, chloride 108, CO2 of 28, BUN 17, creatinine 0.99. TELEMETRY: Normal sinus rhythm. IMPRESSION: 1. Chest pain concerning for unstable angina. 2. Coronary artery disease status post 3-vessel coronary artery bypass grafting. 3. Hypertension. 4. Hyperlipidemia. 5. Hypothyroidism. RECOMMENDATIONS: No evidence of myocardial infarction on serial cardiac biomarkers thus far. Given patient's cardiac history and chest pain, which she described as similar to the pain leading up to her bypass. We will proceed with ischemic evaluation. Further recommendations pending test results. Continue current cardiac medications. Thank you for this consult. We will continue to follow. Ashlee Marin MD ABS/MODL /[id number]
--- NOTE | 2018-09-05 23:28 | Consultation ---
DATE OF CONSULTATION: Pulmonary Critical Care Consultation CHIEF COMPLAINT: Chest pain and back pain. HISTORY OF PRESENT ILLNESS: The patient is an 83-year-old woman. She has a history of coronary artery disease and a CABG in 2015. She also has a history of hypertension as well as some prior back problems. She came into the hospital complaining of some chest pain. She had only a mild cough and mild dyspnea, but no fevers. PAST SURGICAL HISTORY: 1. Status post coronary artery bypass grafting. 2. Status post cholecystectomy. 3. Status post hysterectomy. 4. Hip surgery. 5. Knee surgery. PAST MEDICAL HISTORY: 1. Coronary artery disease. 2. Hypertension. 3. Hyperlipidemia. 4. Osteoporosis. ALLERGIES: THE PATIENT IS ALLERGIC TO PENICILLIN. REVIEW OF SYSTEMS: The patient denies any fever or headache. She has no neck pain or sore throat. She does have some pain in her back in the paravertebral area on the right lumbar spine. She denies any abdominal pain. There is no nausea or vomiting. She has no leg swelling. She has no focal neurological complaints. SOCIAL HISTORY: She does not smoke or drink. FAMILY HISTORY: Family history is significant for heart disease. PHYSICAL EXAMINATION: VITAL SIGNS: The patient is afebrile. The blood pressure is 137/63 and the saturation is 95%. HEENT: Shows no facial swelling or erythema. The nasal mucosa is normal. The oropharynx is normal. LYMPHATIC: Shows no submandibular, cervical, or supraclavicular adenopathy. CARDIAC: Reveals a regular rate and rhythm with normal S1 and S2. LUNGS: Auscultation of lungs reveals clear breath sounds bilaterally. There is no wheezing. ABDOMEN: Soft and nontender. There is no rebound or guarding. EXTREMITIES: Show no leg edema or calf tenderness. There is no cyanosis or clubbing. SKIN: Shows no rashes. NEUROLOGICAL: Shows no focal abnormalities. LABORATORY DATA: CBC is within normal limits. Electrolytes, BUN, and creatinine are normal. Chest x-ray shows possible old compression fracture at T12, but no active cardiopulmonary disease. IMPRESSION: 1. Chest pain with history of prior coronary artery disease. 2. Osteoporosis and indeterminate aged compression fraction of the lower thoracic spine. 3. Hypothyroidism. 4. Hypertension. PLAN: 1. Await completion of cardiac evaluation. 2. Possible discharge tomorrow depending on results. MD ROHIT Muse/ZO /[id number]
[2018-09-06] VITALS: BP 125/58
[2018-09-06 03:51] VITALS: BP 157/67
[2018-09-06 04:00] VITALS: BP 152/63
[2018-09-06 05:46] LABS: BASOPHILS # (AUTO) 0.1 (0.0-0.1); BASOPHILS % 0.7 % (0.0-1.0); EOSINOPHILS # (AUTO) 0.2 (0.0-0.4); EOSINOPHILS % 2.1 % (0.0-6.0); HEMATOCRIT 35.9 % (34.2-44.1); HEMOGLOBIN 11.1 g/dL (12.0-16.0); LYMPHOCYTES # (AUTO) 1.5 (1.0-3.2); LYMPHOCYTES % 20.5 % (18.0-39.1); MEAN CORPUSCULAR HGB CONC 30.9 g/dL (31-35); MEAN CORPUSCULAR VOLUME 93.7 fL (81-99); MONOCYTES # (AUTO) 0.9 (0.2-0.8); MONOCYTES % 12.1 % (4.4-11.3); NEUTROPHILS # (AUTO) 4.6 (2.1-6.9); NEUTROPHILS % 64.3 % (38.7-80.0); PLATELET COUNT 174 x10e3/uL (140-360); RED BLOOD COUNT 3.83 x10e6/uL (3.6-5.1); RED CELL DISTRIBUTION WIDTH 13.4 % (11.7-14.4)
[2018-09-06] MEDS: LEVOTHYROXINE SODIUM 75 MCG TAB PO SCH (06:45)
[2018-09-06 07:00] LABS: ANION GAP 15.2 mmol/L (8-16); BLOOD UREA NITROGEN 15 mg/dL (7-26); BUN/CREATININE RATIO 17 (6-25); CALCIUM 8.5 mg/dL (8.4-10.2); CARBON DIOXIDE 24 mmol/L (22-29); CHLORIDE 111 mmol/L (98-107); CREATININE, SERUM 0.86 mg/dL (0.57-1.11); EST GLOMERULAR FILTRATION RATE > 60 ML/MIN (60-); GLUCOSE 126 mg/dL (74-118); MAGNESIUM 2.1 MG/DL (1.3-2.1); POTASSIUM 4.2 mmol/L (3.5-5.1); SODIUM 146 mmol/L (136-145)
--- NOTE | 2018-09-06 07:15 | NUR ---
Received patient this morning, alert and responsive, in bed during rounds, and pains well managed, no resp distress, denies chest pain/dyspnea, call light within reach and will monitor
[2018-09-06 07:51] LABS: INR 0.9; PARTIAL THROMBOPLASTIN TIME 17.8 seconds (23.8-35.5); PROTHROMBIN TIME 12.6 seconds (11.9-14.5)
[2018-09-06 08:17] VITALS: BP 158/67
[2018-09-06] MEDS: NON-FORMULARY MEDICATION (Leflunomide 20 MG) PO SCH (08:54)
[2018-09-06] MEDS: CAPTOPRIL 25 MG TAB PO SCH (08:55)
[2018-09-06] MEDS: PREDNISONE 5 MG TAB PO SCH (08:55)
[2018-09-06] MEDS: FOLIC ACID 1 MG TAB PO SCH (08:55)
[2018-09-06] MEDS: KETOCONAZOLE 2% CREAM/15 GM TUBE TOP SCH (08:55)
[2018-09-06] MEDS: VITAMIN E 400 UNIT CAP PO SCH (08:55)
[2018-09-06] MEDS: ASCORBIC ACID 500 MG TAB PO SCH (08:55)
[2018-09-06] MEDS: TERBINAFINE 250 MG TAB PO SCH (08:55)
[2018-09-06] MEDS: BENZONATATE 100 MG CAP PO SCH (08:55)
[2018-09-06] MEDS: ASPIRIN 81 MG ENTERIC COATED PO SCH (08:55)
[2018-09-06] MEDS: SIMVASTATIN 40 MG TAB PO SCH (08:55)
[2018-09-06] MEDS: CARVEDILOL 12.5 MG TAB PO SCH (08:55)
[2018-09-06] MEDS: DULOXETINE HCL 30 MG DELAYED RELEASE PO SCH (08:55)
[2018-09-06] MEDS: PANTOPRAZOLE SOD 40 MG TABEC PO SCH (08:55)
[2018-09-06 09:53] VITALS: BP 158/67
[2018-09-06] MEDS ORDERED: CAPTOPRIL25 MG PO (10:18)
--- NOTE | 2018-09-06 10:33 | NUR ---
Patient alert and responsive, rounds by cardiologists and cleared patient for discharge as stress test was normal, HEMATOLOGY TECHNOLOGIST for attending discharged patient. Provided with discharge summary and IV line removed, cath tip in place and dressing applied. Patient discharged.
--- NOTE | 2018-09-06 13:00 | Progress Note ---
DATE: 09/06/2018 Cardiology Progress Note SUBJECTIVE: The patient denies chest pain or shortness of breath. OBJECTIVE: VITAL SIGNS: Temperature 96 degrees, pulse 65, respiratory rate 19, blood pressure 158/67, oxygen saturation 93% on room air. GENERAL: Awake, alert, no acute distress. LUNGS: Clear to auscultation bilaterally. No wheezes or crackles. CARDIOVASCULAR: Normal rate, regular rhythm. No murmur. Normal S1, S2. ABDOMEN: Soft, nontender. EXTREMITIES: No edema. CARDIAC MEDICATIONS: Captopril 50 mg p.o. b.i.d., simvastatin 40 mg p.o. at bedtime, carvedilol 12.5 mg p.o. b.i.d., aspirin 81 mg p.o. daily, levothyroxine 75 mcg p.o. daily. LABORATORY DATA: WBC 7.08, hemoglobin 11.1, hematocrit 35.9, platelets 174. Sodium 146, potassium 4.2, chloride 111, CO2 of 24, BUN 15, creatinine 0.86. BNP 132. TELEMETRY: Normal sinus rhythm. IMPRESSION: 1. Chest pain. 2. Coronary artery, status post 3-vessel coronary artery bypass grafting. 3. Hypertension. 4. Hyperlipidemia. 5. Hypothyroidism. RECOMMENDATIONS: No evidence of myocardial infarction on serial cardiac biomarkers. The patient's nuclear stress test was without evidence of ischemia. No further cardiac evaluation is indicated at this time. Continue home cardiac medications. We will increase her carvedilol given her poorly-controlled blood pressure. Continue aspirin, otherwise. Thank you for this consult. We will continue to follow. Ashlee Marin MD ABS/MODL /[id number]
[2018-09-06] MEDS ORDERED: CARVEDILOL 12.5 MG TAB PO SCH (17:00)
--- NOTE | 2018-09-07 16:57 | Discharge Summary ---
ADMISSION DIAGNOSES: 1. Chest pain. 2. Hypertension complicated by coronary artery disease. 3. Coronary artery disease with history of three-vessel CABG. 4. Hyperlipidemia. 5. Hypothyroidism. DISCHARGE DIAGNOSES: 1. Chest pain. 2. Hypertension complicated by coronary artery disease. 3. Coronary artery disease with history of three-vessel CABG. 4. Hyperlipidemia. 5. Hypothyroidism. 6. Rule out acute coronary syndrome. HISTORY: The patient has a history of hypertension, GERD, hyperlipidemia, hypothyroidism, gastritis, renal calculi, and CAD. PAST SURGICAL HISTORY: Back surgery, , CABG, tonsillectomy, hysterectomy, knee prosthesis, cataracts, cholecystectomy, hip surgery, and prosthesis. SOCIAL HISTORY: The patient is a former smoker. She quit in 1968. HOSPITAL COURSE: An 83-year-old female, admitted with chest pressure, substernal, nonradiating, lasting about 30 minutes, immediately relieved after taking 2 nitroglycerin sublingual. The onset was during rest. On admission, enzymes were negative x3. Cardiology was consulted, who ordered a stress test which was negative. Due to bilateral lower extremity swelling, the patient also had a bilateral lower extremity venous Doppler which was negative. D-dimer was also within normal limits. The patient was discharged home with same home medicines plus increased beta-minh per Cardiology recommendation. Vital signs stable, the patient afebrile. Dictated by Rani Narvaez NP MD HANNAH Randhawa/OZ /[id number]
--- NOTE | 2018-09-09 13:39 | Myoview Stress Test ---
DATE OF STUDY: 09/04/2018 14:40:00 Stress Test - Treadmill ONLY PROCEDURE TITLE: Rest/stress isotope SPECT imaging with pharmacologic stress and gated SPECT imaging. DESCRIPTION OF PROCEDURE: Pharmacologic stress testing was performed with regadenoson per protocol. The heart rate was 65 beats per minute at rest increased to 88 beats per minute during the regadenoson infusion. The resting blood pressure was 137/60 mmHg and increased to 152/58 mmHg which is a normal response. The resting electrocardiogram demonstrated normal sinus rhythm. There were no ST-segment changes suggestive of myocardial ischemia. Myocardial perfusion imaging was performed at rest following the injection of 30 mCi of tetrofosmin. At peak pharmacologic effect, the patient was injected with 33 mCi of tetrofosmin and gated post-stress tomographic imaging was performed. FINDINGS: The overall quality of study is good. Left ventricle was of normal size on the rest and stress studies. SPECT images demonstrate homogeneous tracer distribution throughout the myocardium. Gated SPECT imaging reveals normal myocardial thickening and wall motion. The left ventricular ejection fraction was calculated to be greater than 70%. IMPRESSION: Myocardial perfusion imaging is normal. Overall left ventricular systolic function was normal without regional wall motion abnormalities. Ashlee Marin MD ABS/MODL /[id number]
== END 2018-09-06 10:49 | disposition home or self-care (01) ==
LOC: ER 19:27 → ERHOLD 23:28 → MED/SURG 09-04 00:47
PROVIDERS: ADMIT Internal Medicine; ATTEND Internal Medicine
DX: R07.9 Chest pain, unspecified (principal); I11.9 Hypertensive heart disease without heart failure; K21.9 Gastro-esophageal reflux disease without esophagitis; E78.5 Hyperlipidemia, unspecified; E03.9 Hypothyroidism, unspecified; Z87.442 Personal history of urinary calculi; K29.70 Gastritis, unspecified, without bleeding; Z88.0 Allergy status to penicillin; Z91.81 History of falling; Z95.1 Presence of aortocoronary bypass graft; Z90.49 Acquired absence of other specified parts of digestive tract; Z87.891 Personal history of nicotine dependence; Z82.49 Family history of ischemic heart disease and other diseases of the circulatory system; I25.10 Atherosclerotic heart disease of native coronary artery without angina pectoris; M80.08XA Age-related osteoporosis with current pathological fracture, vertebra(e), initial encounter for fracture; R60.0 Localized edema; E66.9 Obesity, unspecified; Z68.39 Body mass index [BMI] 39.0-39.9, adult
CPT/HCPCS: 36415 ×4; 71045; 78452; 80048 ×2; 80053 ×2; 80061; 82550 ×2; 82553 ×2; 83735 ×3; 83880 ×2; 84100; 84443; 84484 ×2; 85025 ×4; 85379; 85610; 85730; 93005; 93017; 93306; 93970; 99284; A9502; G0378 ×4; J2785; J7512 ×2; S0164 ×2; J2405

== ENCOUNTER 2018-09-09 03:07 | Emergency (ER) | payer MEDICARE ==
[~2018-09-09] VITALS: Ht 170.2 cm; Wt 115.2 kg
[~2018-09-09 03:07] MED LIST changes: +BENZONATATE100 MG PO; +CAPTOPRIL25 MG PO; +CARVEDILOL12.5 MG PO; +FUROSEMIDE40 MG PO; +GLUMETZA500 MG PO; +KETOCONAZOLE15 GM TOP; +LASIX20 MG PO; +LEFLUNOMIDE20 MG PO; +LEVOXYL75 MCG PO; +LISINOPRIL40 MG PO; +PREDNISONE5 MG PO; +TERBINAFINE HC250 MG PO
--- OUTSIDE RECORDS SUMMARY | 2018-09-09 03:10 | XMS REPORT | Clinical Summary ---
Author Author [facility] Address Unknown Phone Unavailable Care Team Providers Care Home Health Rn Name Role Phone Ayaz Romero DO PCP [...] Active Problems Problem Noted Date Atherosclerosis of mcgrath coronary artery of [place] heart 10/10/2015 Atrial fibrillation 10/10/2015 Family History [...] INFLUENZA VACCINE 12/19/2018 Results Not on fileafter 09/08/2017 Insurance Payer Benefit Subscriber ID Type Phone Address Plan / Group C[employer]PRING CIGNA xxxxxxxxx HMO HEALTHSPRI NG HMO MCR ADV COMMERCIAL MISC MISC xxxxxxxxx 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 Advance Directives Patient has advance care planning documents, and code status on file. For more i nformation, please contact: Abebe Lakhani [address] [place] [address] Date Inactivated Comments Code Status Date Activated 10/16/2015 7:33 PM Full Code 10/10/2015 3:41 PM Code Status decision reached by: Patient
--- NOTE | 2018-09-09 04:09 | Diagnostic Imaging Report ---
EXAMINATION: Head CT without contrast. HISTORY:Trauma, fall. COMPARISON:CT brain from 02/06/2014. TECHNIQUE: Multidetector axial images were obtained from the foramen magnum to the vertex without contrast. The images were reconstructed using brain and bone algorithms. Thin section brain images were reformatted into coronal and sagittal planes. Dose modulation, iterative reconstruction, and/or weight based adjustment of the mA/kV was utilized to reduce the radiation dose to as low as reasonably achievable. Intravenous contrast: None IMAGE QUALITY: Acceptable. FINDINGS: Skull/scalp: No lytic or blastic. lesions. No surgical changes. Parenchyma: No abnormal density. No acute hemorrhage, mass or acute major vascular territorial infarct. Arteries: No density suggestive of thrombosis. Atherosclerotic calcification in bilateral carotid siphon. Dural sinuses: No abnormal density suggestive of thrombosis. Ventricles: Moderate compensated dilatation due to volume loss. No hydrocephalus. Extra-axial spaces: No abnormal density. Brain volume: Generalized age-related cerebral volume loss. Craniocervical junction: No mass, Chiari malformation, or basilar invagination. Sella: No mass. Paranasal/mastoid sinuses: Imaged portions unremarkable. IMPRESSION: No acute intracranial abnormality. Generalized age-related cerebral volume loss. Signed by: Dr. Ximena Aldana M.D. on 09/09/2018 4:06 AM
--- NOTE | 2018-09-09 04:14 | Diagnostic Imaging Report ---
History: Trauma, fall. Comparison studies: CT cervical spine from 02/06/2014. Technique: Axial images were obtained through the cervical region.. Coronal and sagittal images reconstructed from the axial data. Dose modulation, iterative reconstruction, and/or weight based adjustment of the mA/kV was utilized to reduce the radiation dose to as low as reasonably achievable. Intravenous contrast: None Findings: Fractures: None. Soft tissue injuries: None. Atlantoaxial articulation: Intact. Alignment: Loss of normal cervical lordosis is either positional or due to muscle spasm. No scoliosis. Cervicomedullary junction: No abnormalities. The foramen magnum is patent. Soft tissues: Atherosclerotic calcification in bilateral carotid bulb. Vertebrae: No fractures, infection or neoplasm. Degenerative changes: C4-C5: Mild degenerative disc disease. Mild right and moderate left foraminal stenosis due to facet and uncovertebral arthrosis. C5-C6: Mild to moderate degenerative disc disease. Posterior disc osteophyte complex results in mild canal stenosis. Mild right foraminal stenosis due to uncovertebral arthrosis.. IMPRESSION: 1. No acute cervical spine fracture or dislocation. Loss of normal cervical lordosis is either positional or due to muscle spasm. 2. Ligament, spinal cord and or vascular abnormalities cannot be excluded on the basis of this examination. 3. Cervical spondylosis as detailed above. Signed by: Dr. Ximena Aldana M.D. on 09/09/2018 4:10 AM
[2018-09-09] MEDS ORDERED: HYDROCODONE/APAP 10MG-325MG TAB PO STA (04:52)
== END 2018-09-09 05:15 | disposition home or self-care (01) ==
LOC: ER 03:07
DX: S01.01XA Laceration without foreign body of scalp, initial encounter (principal); W06.XXXA Fall from bed, initial encounter; W18.09XA Striking against other object with subsequent fall, initial encounter; Y92.003 Bedroom of unspecified non-institutional (private) residence as the place of occurrence of the external cause; I10 Essential (primary) hypertension; E03.9 Hypothyroidism, unspecified; I50.9 Heart failure, unspecified; F41.9 Anxiety disorder, unspecified
CPT/HCPCS: 70450; 72125; 99283

== ENCOUNTER 2018-12-07 19:06 | Emergency (ER) | payer MEDICARE ==
[~2018-12-07] VITALS: Ht 170.2 cm; Wt 115.2 kg
--- OUTSIDE RECORDS SUMMARY | 2018-12-07 19:09 | XMS REPORT | Clinical Summary ---
Author Author [facility] Address Unknown Phone Unavailable Care Team Providers Care Flight Engineer Manager Name Role Phone Ayaz Romero DO [...] Active Problems Problem Noted Date Atherosclerosis of jena coronary artery of jena heart 10/10/2015 Atrial fibrillation 10/10/2015 Family History [...] VACCINE 2002 (1 of 2 - PCV13) INFLUENZA VACCINE 12/19/2018 Results Not on fileafter 12/06/2017 Insurance Type Payer Benefit Subscriber ID Effective Phone Address Plan / Dates Group HMO C[employer]SPRING CIGNA xxxxxxxxx 2015-P HEALTHSPRI resent NG HMO MCR ADV 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 MISC MISC xxxxxxxxx 2015-P COMMERCIAL resent Advance Directives Patient has advance care planning documents, and code status on file. For more i nformation, please contact: Abebe Lakhani [address] [place] [address] Date Inactivated Comments Code Status Date Activated 10/16/2015 7:33 PM Full Code 10/10/2015 3:41 PM Code Status decision reached by: Patient
--- OUTSIDE RECORDS SUMMARY | 2018-12-07 19:10 | XMS REPORT ---
Author Author Tonie Grant [facility] eClinicalWorks Address Unknown Phone Unavailable Care Team Providers Care Day Care Home Mother Name Role Phone Tonie Grant CP Unavailable [...] Instructions Start Date End Date Status Dosage PredniSONE [facility] 09918062765 5 MG Active TAKE 1 TABLET BY MOUTH ONCE DAILY Carvedilol [facility] 52405205859 12.5 MG Orally Active as directed Oxybutynin Chloride ER ND 27758961231 5 MG Orally Once a day Active 1 tablet Ranitidine HCl [facility] 84213610696 300 MG Orally Once a day Active 1 tablet at bedtime Stool Softener ND 00302709058 100 MG Orally Once a day Active 1 capsule as needed Leflunomide ND 07520453604 20 MG Orally Once a day Mar 15, 2018 Active 1 tablet Cetirizine HCl [facility] 82198328150 10 MG Orally Once a day Active 1 tablet Simvastatin ND 16068528387 40 MG Orally Once a day Active 1 tablet in the evening PredniSONE ND 20783886910 5 MG Orally Once a day August 23, 2017 Active 1 tab Captopril ND 41252419816 50 MG Orally Active as directed Humira [facility] 69782259096 40 MG/0.4ML Subcutaneous July 31, 2018 October 30, 2018 Inactive 0.4 ml Cyclobenzaprine HCl ND 18040626501 5 MG Orally Twice a day Active 1 tablet as needed Hydroxychloroquine Sulfate [facility] 27376496180 200 MG Active TAKE 1 TABLET BY MOUTH TWICE DAILY WITH FOOD OR MILK Duloxetine HCl [facility] 84067470857 30 MG Orally Once a day Active 1 capsule Eric Aspirin EC Low Dose [facility] 95550238687 81 MG Orally Once a day Active 1 tablet Inflectra [facility] 18053298342 100 MG Intravenous October 30, 2018 Active as directed Metformin HCl [facility] 22437638847 500 MG Orally Once a day Active 1 tablet with a meal Tramadol HCl [facility] 92503286141 50 MG Orally every 6 hrs Active 1 tablet as needed Levothyroxine Sodium [facility] 86299749809 75 MCG Orally Once a day Active 1 tablet on an empty stomach in the morning Furosemide [facility] 53270181366 20 MG Orally Once a day Active 1 tablet Omeprazole [facility] 77148056251 40 MG Orally Once a day Active 1 capsule Vital Signs Date/Time: October 30, 2018 BMI 41 Index Weight 246.1 lbs Height 65 in Temperature 97.2 F Cardiac Monitoring Heart Rate 71 /min Blood Pressure Diastolic 72 mm Hg Blood Pressure Systolic 130 mm Hg Results No Known Results Summary Purpose eClinicalWorks Submission
--- OUTSIDE RECORDS SUMMARY | 2018-12-07 19:10 | XMS REPORT ---
Author Alfred Christie [facility] eClinicalWorks Address Unknown Phone Unavailable Care Team Providers Care Sap Payroll Consultant Name Role Phone Alfred Chong Unavailable Allergies No Known Allergies Problems Problem Type Condition Code Onset Dates Condition Status Problem Back pain M54.9 Active Problem Osteopenia M85.80 Active Problem Rheumatoid arthritis M06.9 Active Assessment Rheumatoid arthritis M06.9 Active Problem Polyarthritis M13.0 Active Problem Inflammatory arthritis M19.90 Active Medications Medication Code System Code Instructions Start Date End Date Status Dosage Stool Softener [facility] 86106238645 100 MG Orally Once a day Active 1 capsule as needed Carvedilol ND 54871103441 12.5 MG Orally Active as directed Leflunomide [facility] 82534562906 20 MG Orally Once a day Mar 15, 2018 Active 1 tablet Cetirizine HCl [facility] 82934919880 10 MG Orally Once a day Active 1 tablet Cyclobenzaprine HCl ND 38036584927 5 MG Orally Twice a day Active 1 tablet as needed PredniSONE ND 31407058982 5 MG Orally Once a day August 23, 2017 Active 1 tab Simvastatin ND 82699905274 40 MG Orally Once a day Active 1 tablet in the evening Metformin HCl ND 05462322721 500 MG Orally Once a day Active 1 tablet with a meal Hydroxychloroquine Sulfate [facility] 73714723477 200 MG Active TAKE 1 TABLET BY MOUTH TWICE DAILY WITH FOOD OR MILK Duloxetine HCl ND 27017326847 30 MG Orally Once a day Active 1 capsule Captopril ND 53052705062 50 MG Orally Active as directed Tramadol HCl ND 25391859549 50 MG Orally every 6 hrs Active 1 tablet as needed Oxybutynin Chloride ER ND 22499238281 5 MG Orally Once a day Active 1 tablet Ranitidine HCl ND 65886884906 300 MG Orally Once a day Active 1 tablet at bedtime Omeprazole ND 41371843671 40 MG Orally Once a day Active 1 capsule Furosemide ND 48120293193 20 MG Orally Once a day Active 1 tablet Eric Aspirin EC Low Dose [facility] 10725413033 81 MG Orally Once a day Active 1 tablet Levothyroxine Sodium [facility] 60192163736 75 MCG Orally Once a day Active 1 tablet on an empty stomach in the morning Results No Known Results Summary Purpose eClinicalWorks Submission
--- OUTSIDE RECORDS SUMMARY | 2018-12-07 19:10 | XMS REPORT | Continuity of Care Document ---
Author Author Wizer Address Unknown Phone Unavailable Care Team Providers Care [employer] Name Role Phone [employer] Unavailable Unavailable Problems Problem Status Onset Date Classification Date Reported Comments Source New onset atrial flutter Active 10/01/2015 Problem 12/09/2017 [facility] Chest pain Active 06/07/2015 Problem 12/09/2017 [facility] Back pain Active Problem 11/21/2018 Wyatt Chong Osteopenia Active Problem 11/21/2018 Wyatt Chong Rheumatoid arthritis Active Problem 11/21/2018 Wyatt Chong Polyarthritis Active Problem 11/21/2018 Wyatt Chong Inflammatory arthritis Active Problem 11/21/2018 Wyatt Chong Encounter for drug therapy Active Diagnosis 10/31/2018 Wyatt Chong Medications Medication Details Route Status Patient Instructions Ordering Provider Order Date Source Inflectra as directed Intravenous Active 100 MG Intravenous Rudy 10/30/2018 Wyatt Chong Humira 0.4 ml Subcutaneous Active 40 MG/0.4ML Subcutaneous Rudy 07/31/2018 Wyatt Chong Humira 0.4 ml Subcutaneous Active 40 MG/0.4ML Subcutaneous once every 2 wks Rudy 04/26/2018 Wyatt Chong Leflunomide 1 tablet Orally Active 20 MG Orally Once a day [place] 03/15/2018 Wyatt Chong Leflunomide 1 tablet Orally Active 10 MG Orally Once a day Rudy 08/23/2017 Wyatt Chong PredniSONE 1 tab Orally Active 5 MG Orally Once a day Rudy 08/23/2017 Wyatt Chong PredniSONE 1 tab Orally Active 5 MG Orally Once a day [place] 08/23/2017 Wyatt Chong Leflunomide 1 tablet Orally [...] 40mg in am and 20mg in pm Brina 12/06/2015 [facility] Furosemide 20 Mg Tablet, 20 Mg Oral Twice A Day Active 12/06/2015 [facility] Albuterol Sulfate (Proair Hfa Inhaler*) 8.5 Gm Inh, Unknown Dose Active 10/02/2015 [facility] Meloxicam 7.5 Mg Tablet, 7.5 Mg Oral Daily Active 10/02/2015 [facility] Mometasone Furoate (Nasonex) 17 Gm [place], Unknown Dose Active 10/02/2015 [facility] Neomy Sulf/Colist Sul/Hc/Thonz (Cortisporin-Tc Ear Susp) 10 Ml Drops.susp, 5 Drop Topically Three Times A Day as needed for + Active 10/02/2015 [facility] Atenolol (Tenormin) 100 Mg Tablet, 100 Mg Oral Daily Active 06/08/2015 [facility] Gabapentin 300 Mg Capsule, 300 Mg Oral Three Times A Day Active 06/08/2015 [facility] Levofloxacin (Levaquin) 500 Mg Tablet, 500 Mg Oral Daily Active 06/08/2015 [facility] Lorazepam (Ativan*) 0.5 Mg Tablet, 0.5 Mg Oral Twice A Day Active 06/08/2015 [facility] Ondansetron Hcl (Zofran*) 4 Mg Tablet, 4 Mg Oral Three Times A Day as needed Active 06/08/2015 [facility] Sertraline Hcl (Zoloft) 20 Mg/1 Ml Oral.conc, 25 Mg Oral Daily Active 06/08/2015 [facility] Tramadol Hcl (Ultram 50MG*) 50 Mg Tab, 50 Mg Oral Every 6 Hours as needed for Pain Active 06/08/2015 [facility] Duloxetine Hcl (Cymbalta) 30 Mg Capsule.dr, 30 Mg Oral Twice A Day Active 01/24/2013 [facility] Fexofenadine Hcl 180 Mg Tablet, 180 Mg Oral Daily Active 01/24/2013 [facility] Potassium Chloride 10 Meq Tab.er.prt, 10 Meq Oral Daily Active 01/24/2013 [facility] Ranitidine Hcl 300 Mg Tablet, 300 Mg Oral Daily Active 01/24/2013 [facility] Selenium 200 Mcg Capsule, 200 Mcg Oral Daily Active 01/24/2013 [facility] Captopril as directed Orally Active 50 MG Orally Castillo Chong Oxybutynin Chloride ER 1 tablet Orally Active 5 MG Orally Once a day Castillo Chong Eric Aspirin EC Low Dose 1 tablet Orally Active 81 MG Orally Once a day Castillo Chong Ranitidine HCl 1 tablet at bedtime Orally Active 300 MG Orally Once a day Castillo Chong Levothyroxine Sodium 1 tablet on an empty stomach in the morning Orally Active 75 MCG Orally Once a day Castillo Chong Simvastatin 1 tablet in the evening Orally Active 40 MG Orally Once a day Castillo Chong Carvedilol as directed Orally Active 12.5 MG Orally Castillo Chong Furosemide 1 tablet Orally Active 20 MG Orally Once a day Castillo Chong Stool Softener 1 capsule as needed Orally Active 100 MG Orally Once a day Castillo Chong Duloxetine HCl 1 capsule Orally Active 30 MG Orally Once a day Castillo Chong Tramadol HCl 1 tablet as needed Orally Active 50 MG Orally every 6 hrs Castillo Chong Omeprazole 1 capsule Orally Active 40 MG Orally Once a day Castillo Chong Cetirizine HCl 1 tablet Orally Active 10 MG Orally Once a day Castillo Chong Cyclobenzaprine HCl 1 tablet as needed Orally Active 5 MG Orally Twice a day Rudy Chong Metformin HCl 1 tablet with a meal Orally Active 500 MG Orally Once a day Castillo Chong PredniSONE TAKE 1 TABLET BY MOUTH ONCE DAILY NA Active 5 MG Rudy Chong Cyclobenzaprine HCl 1 tablet as needed Orally Active 5 MG Orally Twice a day Castillo Chong Hydroxychloroquine Sulfate TAKE 1 TABLET BY MOUTH TWICE DAILY WITH FOOD OR MILK NA Active 200 MG Castillo Chong Leflunomide TAKE 1 TABLET BY MOUTH ONCE DAILY NA Active 10MG Rudy Wyatt Grayer Ascorbate Calcium (Vitamin C) 500 Mg Tablet Daily Active [facility] Aspirin 325 Mg Tablet Daily as needed Active [facility] Calcium Carb/Vit D3/Minerals (Calcium 600 + D Tablet) 1 Each Tablet Daily Active [facility] Captopril 50 Mg Tablet Twice A Day Active [facility] Carvedilol 6.25 Mg Tablet Twice A Day Active [facility] Ciprofloxacin Hcl (Cipro) 500 Mg Tablet Every 12 Hours Active [facility] Duloxetine Hcl (Cymbalta) 30 Mg Capsule.dr Daily as needed for Anxiety Active [facility] Folic Acid 1 Mg Tablet Twice A Day Active [facility] Ketorolac Tromethamine (Toradol) 10 Mg Tablet Every 6 Hours Active [facility] Levothyroxine Sodium 50 Mcg Tablet Daily Active [facility] Meloxicam 7.5 Mg Tablet Daily Active [facility] Nitroglycerin (Nitrostat) 0.4 Mg Tab.subl as needed for Chest Pain Active [facility] Omeprazole 40 Mg Capsule.dr Daily Active [facility] Ondansetron (Zofran Odt) 4 Mg Tab.rapdis Every 6 Hours as needed for Nausea Active [facility] Oxybutynin Chloride (Ditropan Xl) 5 Mg Tab.er.24 Daily Active [facility] Pyridoxine Hcl (Vitamin B-6) 100 Mg Tablet Daily Active [facility] Simvastatin 40 Mg Tablet Daily Active [facility] Sucralfate (Carafate) 1 Gm/10 Ml Oral.susp As Needed Active [facility] Tamsulosin Hcl (Flomax*) 0.4 Mg Cap Daily Active [facility] Vitamin E 400 Unit Capsule Daily Active [facility] Allergies, Adverse Reactions, Alerts Substance Category Reaction Severity Reaction type Status Date Reported Comments Source Penicillin Adverse Reaction rash Adverse Reaction Active 10/30/2018 Wyatt Chong Immunizations No Data Provided for This Section Results Order Name Results Value Reference Range Date Interpretation Comments Source Amorphous sediment detection in urine sediment by light microscopy Amorphous sediment detection in urine sediment by light microscopy FEW FEW 12/09/2017 [facility] Automated urine sediment leukocyte count by microscopy (number/high power field) Automated urine sediment leukocyte count by microscopy (number/high power field) <50 0 - 5 12/09/2017 [facility] Bacteria detection in urine sediment by light microscopy Bacteria detection in urine sediment by light microscopy MODERATE NONE 12/09/2017 [facility] Epithelial cells detection in urine sediment by light microscopy Epithelial cells detection in urine sediment by light microscopy RARE NONE 12/09/2017 [facility] Erythrocytes detection in urine sediment by light microscopy Erythrocytes detection in urine sediment by light microscopy <5 0 - 5 12/09/2017 [facility] Specific gravity of Urine by Test strip Specific gravity of Urine by Test strip 1.010 1.010 - 1.025 12/09/2017 [facility] Urine clarity Urine clarity HAZY CLEAR 12/09/2017 [facility] Urine color determination Urine color determination YELLOW YELLOW 12/09/2017 [facility] Urine erythrocytes detection Urine erythrocytes detection NEGATIVE NEGATIVE 12/09/2017 [facility] Urine glucose detection Urine glucose detection NEGATIVE NEGATIVE 12/09/2017 [facility] Urine ketones detection by automated test strip Urine ketones detection by automated test strip NEGATIVE NEGATIVE 12/09/2017 [facility] Urine leukocyte esterase detection by dipstick Urine leukocyte esterase detection by dipstick 1+ NEGATIVE 12/09/2017 [facility] Urine nitrite detection Urine nitrite detection POSITIVE NEGATIVE 12/09/2017 [facility] Urine pH measurement by automated test strip Urine pH measurement by automated test strip 8 5 - 7 12/09/2017 [facility] Urine protein measurement by test strip (mass/volume) Urine protein measurement by test strip (mass/volume) 1+ NEGATIVE 12/09/2017 [facility] Urine total bilirubin measurement (mass/volume) Urine total bilirubin measurement (mass/volume) NEGATIVE NEGATIVE 12/09/2017 [facility] Urine urobilinogen measurement by test strip (mass/volume) Urine urobilinogen measurement by test strip (mass/volume) 0.2 0.2 - 1 12/09/2017 [facility] Automated blood basophil count (count/volume) Automated blood basophil count (count/volume) 0.0 0.0 - 0.1 08/12/2017 [facility] Automated blood basophil count as percentage of total leukocytes Automated blood basophil count as percentage of total leukocytes 0.5 0.0 - 1.0 08/12/2017 [facility] Automated blood eosinophil count Automated blood eosinophil count 0.1 0.0 - 0.4 08/12/2017 [facility] Automated blood eosinophil count as percentage of total leukocytes Automated blood eosinophil count as percentage of total leukocytes 0.7 0.0 - 6.0 08/12/2017 [facility] Automated blood hematocrit (volume fraction) Automated blood hematocrit (volume fraction) 40.5 34.2 - 44.1 08/12/2017 [facility] Automated blood lymphocyte count as percentage ot total leukocytes Automated blood lymphocyte count as percentage ot total leukocytes 18.4 18.0 - 39.1 08/12/2017 [facility] Automated blood monocyte count as percentage of total leukocytes Automated blood monocyte count as percentage of total leukocytes 5.9 4.4 - 11.3 08/12/2017 [facility] Automated blood neutrophil count Automated blood neutrophil count 6.2 2.1 - 6.9 08/12/2017 [facility] Automated blood platelet count (count/volume) Automated blood platelet count (count/volume) 258 140 - 360 08/12/2017 [facility] Automated blood segmented neutrophil count as percentage of total leukocytes Automated blood segmented neutrophil count as percentage of total leukocytes 74.0 38.7 - 80.0 08/12/2017 [facility] Automated erythrocyte mean corpuscular hemoglobin (mass per erythrocyte) Automated erythrocyte mean corpuscular hemoglobin (mass per erythrocyte) 28.9 28 - 32 08/12/2017 [facility] Automated erythrocyte mean corpuscular hemoglobin concentration measurement (mass/volume) Automated erythrocyte mean corpuscular hemoglobin concentration measurement (mass/volume) 33.3 31 - 35 08/12/2017 [facility] Automated erythrocyte mean corpuscular volume Automated erythrocyte mean corpuscular volume 86.7 81 - 99 08/12/2017 [facility] Blood erythrocytes automated count (number/volume) Blood erythrocytes automated count (number/volume) 4.67 3.6 - 5.1 08/12/2017 [facility] Blood hemoglobin measurement (moles/volume) Blood hemoglobin measurement (moles/volume) 13.5 12.0 - 16.0 08/12/2017 [facility] Blood leukocytes automated count (number/volume) Blood leukocytes automated count (number/volume) 8.31 4.8 - 10.8 08/12/2017 [facility] Blood lymphocytes count (number/volume) Blood lymphocytes count (number/volume) 1.5 1.0 - 3.2 08/12/2017 [facility] Blood monocytes automated count (number/volume) Blood monocytes automated count (number/volume) 0.5 0.2 - 0.8 08/12/2017 [facility] Estimated glomerular filtration rate (GFR) determination Estimated glomerular filtration rate (GFR) determination 42 60 08/12/2017 [facility] Glucose measurement Glucose measurement 148 74 - 118 08/12/2017 [facility] Plasma globulin measurement (mass/volume) Plasma globulin measurement (mass/volume) 3.4 2.3 - 3.5 08/12/2017 [facility] Serum or plasma alanine aminotransferase measurement (enzymatic activity/volume) Serum or plasma alanine aminotransferase measurement (enzymatic activity/volume) 15 0 - 55 08/12/2017 [facility] Serum or plasma albumin measurement (mass/volume) Serum or plasma albumin measurement (mass/volume) 4.0 3.5 - 5.0 08/12/2017 [facility] Serum or plasma albumin/globulin mass ratio Serum or plasma albumin/globulin mass ratio 1.2 0.8 - 2.0 08/12/2017 [facility] Serum or plasma alkaline phosphatase measurement (enzymatic activity/volume) Serum or plasma alkaline phosphatase measurement (enzymatic activity/volume) 57 40 - 150 08/12/2017 [facility] Serum or plasma anion gap Serum or plasma anion gap 15.2 8 - 16 08/12/2017 [facility] Serum or plasma calcium measurement (mass/volume) Serum or plasma calcium measurement (mass/volume) 9.3 8.4 - 10.2 08/12/2017 [facility] Serum or plasma carbon dioxide, total measurement (moles/volume) Serum or plasma carbon dioxide, total measurement (moles/volume) 27 22 - 29 08/12/2017 [facility] Serum or plasma chloride measurement (moles/volume) Serum or plasma chloride measurement (moles/volume) 100 98 - 107 08/12/2017 [facility] Serum or plasma creatinine measurement (mass/volume) Serum or plasma creatinine measurement (mass/volume) 1.23 0.57 - 1.11 08/12/2017 [facility] Serum or plasma lipase measurement (enzymatic activity/volume) Serum or plasma lipase measurement (enzymatic activity/volume) <4 8 - 78 08/12/2017 [facility] Serum or plasma magnesium measurement (mass/volume) Serum or plasma magnesium measurement (mass/volume) 1.9 1.3 - 2.1 08/12/2017 [facility] Serum or plasma potassium measurement (moles/volume) Serum or plasma potassium measurement (moles/volume) 4.2 3.5 - 5.1 08/12/2017 [facility] Serum or plasma protein measurement (mass/volume) Serum or plasma protein measurement (mass/volume) 7.4 6.5 - 8.1 08/12/2017 [facility] Serum or plasma sodium measurement (moles/volume) Serum or plasma sodium measurement (moles/volume) 138 136 - 145 08/12/2017 [facility] Serum or plasma total bilirubin measurement (mass/volume) Serum or plasma total bilirubin measurement (mass/volume) 0.3 0.2 - 1.2 08/12/2017 [facility] Serum or plasma urea nitrogen measurement (mass/volume) Serum or plasma urea nitrogen measurement (mass/volume) 27 7 - 26 08/12/2017 [facility] Serum or plasma urea nitrogen/creatinine mass ratio Serum or plasma urea nitrogen/creatinine mass ratio 22 6 - 25 08/12/2017 [facility] Red Cell Distribution Width 14.2 11.7 - 14.4 08/12/2017 [facility] IM GRANULOCYTES % 0.5 0.0 - 1.0 08/12/2017 [facility] Absolute Immature Granulocyte (auto 0.04 0 - 0.1 08/12/2017 [facility] Aspartate Amino Transf (AST/SGOT) 14 5 - 34 08/12/2017 [facility] Pathology Reports No Data Provided for This Section Diagnostic Reports No Data Provided for This Section Consultation Notes No Data Provided for This Section Discharge Summaries No Data Provided for This Section History and Physicals No Data Provided for This Section Vital Signs Vital Sign Value Date Comments Source Weight 246.1 10/30/2018 Wyatt Chong Height 65 10/30/2018 Wyatt Chong Temperature Oral (F) 97.2 F 10/30/2018 Wyatt Chong Heart Rate 71 10/30/2018 Wyatt Chong Diastolic (mm Hg) 72 10/30/2018 Wyatt Chong Systolic (mm Hg) 130 10/30/2018 Wyatt Chong Weight 247 07/31/2018 Wyatt Chong Height 66.5 07/31/2018 Wyatt Chong Temperature Oral (F) 96.9 F 07/31/2018 Wyatt Chong Heart Rate 80 07/31/2018 Wyatt Chong Diastolic (mm Hg) 89 07/31/2018 Wyatt Chong Systolic (mm Hg) 151 07/31/2018 Wyatt Grayer Weight 245 06/07/2018 Wyatt Chong Height 676 [...] Chong Systolic (mm Hg) 142 08/23/2017 Wyatt Chong Encounters Location Location Details Encounter Type Encounter Number Reason For Visit Attending Provider ADM Date DC Date Status Source Departed Emergency Room [id number] NU SANABRIA 08/12/2017 08/12/2017 [facility] Departed Emergency Room [id number] CAROLIN CAUSEY MD 12/09/2017 12/09/2017 [facility] Procedures Procedure Code Date Perfomer Comments Source CT of abdomen and pelvis without contrast [id number] 08/12/2017 [facility] Assessment and Plan No Data Provided for This Section Plan of Care Plan of Care Date Source Discharge Date 12/09/17 12:26pm Disposition HOME, SELF-CARE Condition at Discharge Stable Instructions/Education Provided Back Pain Urinary Tract Infection - Women Forms Provided Work/School Excuse Prescriptions See Medication Section Referrals DEANNA TURNER DO Address: [facility] PAOLA MILLER [address] [address] Additional Instructions/Education 1. follow up with your doctor in 1-2 days without fail 2. return to ed as needed 3. tylenol and motrin as needed 12/09/2017 [facility] Social History Social History Date Source Social History Problem Response Recorded Date/Time Onset Date Status Hx Psychiatric Problems Yes 12/03/2015 9:45pm Not Applicable Not Applicable Hx Eating Disorder No 12/03/2015 9:45pm Not Applicable Not Applicable Hx Substance Use Disorder No 12/03/2015 9:45pm Not Applicable Not Applicable Hx Depression No 12/03/2015 9:45pm Not Applicable Not Applicable Hx Alcohol Use No 12/03/2015 9:45pm Not Applicable Not Applicable Hx Substance Use Treatment No 12/03/2015 9:45pm Not Applicable Not Applicable Hx Physical Abuse No 12/03/2015 9:45pm Not Applicable Not Applicable Smoking Status Start Date Stop Date Never Smoker 12/09/2017 [facility] Family History No Data Provided for This Section Advance Directives Order Name Results Value Date Source Advance Directives Advance Directives Directive Response Recorded Date/Time Does the patient have an advance directive? Yes 12/03/15 9:45pm If yes, is advance directive on file with [facility]? Yes 12/03/15 9:45pm If not on file with [facility] will patient provide a copy? No 08/12/17 7:21pm Do you have a Directive to Physician? No 12/09/17 10:36am Do you have a Medical Power of Production Operations Manager? No 12/09/17 10:36am Do you have an out of hospital Do Not Resuscitate Order? No 12/09/17 10:36am Do you have any special needs we should be aware of? No 12/09/17 10:36am Do you have a support person here with you today? Yes 12/09/17 10:36am Did patient receive Notice of Privacy Practices? Yes 12/09/17 10:36am Did patient receive patient rights and responsibilities? Yes 12/09/17 10:36am 12/09/2017 [facility] Functional Status No Data Provided for This Section
--- NOTE | 2018-12-07 20:18 | Diagnostic Imaging Report ---
EXAMINATION: Head CT without contrast. HISTORY:Status post fall. COMPARISON:CT brain from 09/09/2018. TECHNIQUE: Multidetector axial images were obtained from the foramen magnum to the vertex without contrast. The images were reconstructed using brain and bone algorithms. Thin section brain images were reformatted into coronal and sagittal planes. Dose modulation, iterative reconstruction, and/or weight based adjustment of the mA/kV was utilized to reduce the radiation dose to as low as reasonably achievable. Intravenous contrast: None IMAGE QUALITY: Acceptable. FINDINGS: Skull/scalp: No lytic or blastic. lesions. No surgical changes. Parenchyma: Nonspecific bilateral frontoparietal patchy white matter hypodensity are likely related to small vessel ischemic changes. No acute hemorrhage, mass or acute major vascular territorial infarct. Arteries: No density suggestive of thrombosis. Atherosclerotic calcification in bilateral carotid siphon. Dural sinuses: No abnormal density suggestive of thrombosis. Ventricles: Moderate compensated dilatation due to volume loss. No hydrocephalus. Extra-axial spaces: No abnormal density. Brain volume: Generalized age-related cerebral volume loss. Craniocervical junction: No mass, Chiari malformation, or basilar invagination. Sella: Partial empty sella. Paranasal/mastoid sinuses: Minimal mucosal thickening in left sphenoid sinus. IMPRESSION: 1. No acute intracranial abnormality. 2. Minimal supratentorial white matter microvascular ischemic changes. 3. Generalized age-related cerebral volume loss. Signed by: Dr. Ximena Aldana M.D. on 12/07/2018 8:15 PM
--- NOTE | 2018-12-07 20:26 | Diagnostic Imaging Report ---
ADDENDUM #1 Impression: No acute cervical spine fracture or dislocation. Signed by: Dr. Ximena Aldana M.D. on 12/07/2018 8:41 PM ORIGINAL REPORT History: Status post fall. Comparison studies: CT cervical spine from 09/09/2018. Technique: Axial images were obtained through the cervical region.. Coronal and sagittal images reconstructed from the axial data. Dose modulation, iterative reconstruction, and/or weight based adjustment of the mA/kV was utilized to reduce the radiation dose to as low as reasonably achievable. Intravenous contrast: None Findings: Fractures: None. Soft tissue injuries: None. Atlantoaxial articulation: Intact. Alignment: Loss of normal cervical lordosis is either positional or due to muscle spasm. No scoliosis. Cervicomedullary junction: No abnormalities. The foramen magnum is patent. Soft tissues: Atherosclerotic calcification in bilateral carotid bulb. Vertebrae: No fractures, infection or neoplasm. Degenerative changes: C4-C5: Mild to moderate degenerative disc disease. Posterior disc osteophyte complex without canal stenosis. Mild right and moderate left foraminal stenosis due to uncovertebral arthrosis. C5-C6: Mild degenerative disc disease. Mild right foraminal stenosis due to uncovertebral arthrosis. . Incidental findin.4 mm calcified nodule in left lung apex. IMPRESSION: 1. Fracture or dislocation. Loss of normal cervical lordosis is either positional or due to muscle muscle spasm. 2. Ligament, spinal cord and or vascular abnormalities cannot be excluded on the basis of this examination. 3. Cervical spondylosis as detailed above. Signed by: Dr. Ximena Aldana M.D. on 12/07/2018 8:23 PM
[2018-12-07 21:40] VITALS: BP 148/67
== END 2018-12-07 21:21 | disposition home or self-care (01) ==
LOC: ER 19:06
DX: S00.83XA Contusion of other part of head, initial encounter (principal); W01.198A Fall on same level from slipping, tripping and stumbling with subsequent striking against other object, initial encounter; Y92.008 Other place in unspecified non-institutional (private) residence as the place of occurrence of the external cause; I11.0 Hypertensive heart disease with heart failure; I50.9 Heart failure, unspecified; E11.9 Type 2 diabetes mellitus without complications; E78.5 Hyperlipidemia, unspecified; E03.9 Hypothyroidism, unspecified; K21.9 Gastro-esophageal reflux disease without esophagitis; M19.90 Unspecified osteoarthritis, unspecified site; F41.9 Anxiety disorder, unspecified; Z79.84 Long term (current) use of oral hypoglycemic drugs; Z79.82 Long term (current) use of aspirin
CPT/HCPCS: 70450; 72125; 99283

== ENCOUNTER → 2019-08-14 | Outpatient (CLI) | payer MEDICARE ==
[~2019-08-14] MED LIST changes: +ADVIL200 MG PO; +ASPIR 8181 MG PO; +BENICAR20 MG PO; +CETIRIZINE HCL10 MG PO; +CYCLOBENZAPRINE10 MG PO; +HYDROXYCHLOROQ200 MG PO; +LISINOPRIL10 MG PO; +METFORMIN HCL500 MG PO; +MONTELUKAST SOD10 MG PO; +OXYBUTYNIN CHLOR5 MG PO; +REGADENOSON 0.4 MG/5 ML SYR IV ONE; +STOOL SOFTENER100 MG PO; +ULTRAM50 MG PO; +VITAMIN B-121000 MCG PO; +VITAMIN B-650 MG PO
--- NOTE | 2019-09-08 15:04 | Myoview Stress Test ---
DATE OF STUDY: 08/14/2019 09:11:00 Stress Test - Treadmill ONLY STUDY PERFORMED: Nuclear stress report. PROCEDURE TITLE: Rest/stress single isotope SPECT and SPECT imaging with pharmacologic stress and gated SPECT imaging. INDICATION: Chest pain. PROCEDURE IN DETAIL: A pharmacologic stress testing was performed with regadenoson per protocol. The heart rate was 59 beats per minute at rest and increased to 74 beats per minute during the regadenoson infusion. The resting blood pressure is 141/55 mmHg and decreased to 123/49 mmHg, which is a normal response. The resting electrocardiogram demonstrated normal sinus rhythm. There were no ST-segment changes suggestive of myocardial ischemia. Myocardial perfusion imaging was performed at rest following the injection of 11 mCi of tetrofosmin. At peak pharmacologic effect, the patient was injected with 32.7 mCi of tetrofosmin. Gated post-stress tomographic imaging was performed. FINDINGS: The overall quality of study is fair. Left ventricular cavity is noted to be normal size on the rest and stress studies. SPECT images demonstrate a small mild perfusion defect in the inferolateral wall on stress that is not present on rest. Gated SPECT imaging reveals normal myocardial thickening and wall motion. Left ventricular ejection fraction calculated to be 69%. IMPRESSION: Myocardial perfusion imaging is abnormal. There is a small mild area of ischemia in the inferolateral wall. Overall, left systolic function was normal without regional wall motion abnormalities. Ashlee Marin MD ABS/MODL /[id number] MTDD
== END ==
LOC: NM 08:59
PROVIDERS: ATTEND Internal Medicine Interventional Cardiology
DX: I25.10 Atherosclerotic heart disease of native coronary artery without angina pectoris (principal); Z95.1 Presence of aortocoronary bypass graft
CPT/HCPCS: 78452; 93017; 93306; A9502; J2785

== ENCOUNTER → 2019-09-09 | Day surgery (SDC) | payer MEDICARE ==
--- NOTE | 2019-09-08 13:30 | NUR ---
Checked patient's temperature via skin probe: 96.9F. Patient denies being out of the country or out of state in the last 14 days. Patient denies being around anyone who has been out of the country or out of state in the last 14 days. Patient denies being around anyone who has been diagnosed or exposed to COVID-19 in the last 14 days. Patient denies new onset fever, cough or shortness of breath within the last 14 days.
[2019-09-08 15:05] LABS: BASOPHILS # (AUTO) 0.1 (0.0-0.1); BASOPHILS % 1.2 % (0.0-1.0); EOSINOPHILS # (AUTO) 0.3 (0.0-0.4); EOSINOPHILS % 5.4 % (0.0-6.0); HEMATOCRIT 36.5 % (34.2-44.1); HEMOGLOBIN 11.3 g/dL (12.0-16.0); LYMPHOCYTES # (AUTO) 1.1 (1.0-3.2); LYMPHOCYTES % 18.1 % (18.0-39.1); MEAN CORPUSCULAR VOLUME 93.8 fL (81-99); MONOCYTES # (AUTO) 0.7 (0.2-0.8); MONOCYTES % 11.9 % (4.4-11.3); NEUTROPHILS # (AUTO) 3.7 (2.1-6.9); NEUTROPHILS % 63.1 % (38.7-80.0); PLATELET COUNT 219 x10e3/uL (140-360); RED BLOOD COUNT 3.89 x10e6/uL (3.6-5.1); RED CELL DISTRIBUTION WIDTH 14.6 % (11.7-14.4)
[2019-09-08 15:25] LABS: ALBUMIN 3.6 g/dL (3.5-5.0); ALBUMIN/GLOBULIN RATIO 1.2 (0.8-2.0); CALCIUM 9.3 mg/dL (8.4-10.2); CREATININE, SERUM 1.11 mg/dL (0.57-1.11)
--- NOTE | 2019-09-08 15:32 | NUR ---
Dr. Kapoor notified of patient report shrimp allergy. No new orders at this time.
[2019-09-09] VITALS (7 sets, daily range): BP systolic 103–160; BP diastolic 66–80
[~2019-09-09] VITALS: Ht 170.8 cm; Wt 104.3 kg
[~2019-09-09] MED LIST changes: +ALPRAZOLAM 0.5 MG TAB ONE; +DIPHENHYDRAMINE HCL 25 MG CAP ONE; +FENTANYL CITRATE/PF 100MCG/2 ML INJ ONE; +HEPARIN SOD/SOD CHLORIDE 2,000 ML ONE; +IOPAMIDOL 370 MG/ML 200 ML INFUS..BTL INJ ONE; +LIDOCAINE HCL 2% LOCAL 20 ML VIAL ONE; +MIDAZOLAM HCL 2 MG/2 ML VIAL ONE; -REGADENOSON 0.4 MG/5 ML SYR IV ONE; +SODIUM CHLORIDE 0.9% 1000ML 1,000 ML ONE; +VERAPAMIL HCL 2.5 MG/ML 2 ML VIAL ONE
--- NOTE | 2019-09-09 15:39 | NUR ---
1539p Received pt to room #9,bedside report received from BESSIE Bowles. Alert oriented and appropriate, PERRLA, respirations even and unlabored to room air. Pulses x2 upper extremities equal . Pedal pulses PT/DP doppler ,Cap fill brisk < 3 sec.Rt Femoral Mynx site no gross issues pain pallor,pressure or dysrhythmia. Skin warm and dry integrity appears D/I. IV 20g to rt hand at 100cchr via iv controller, presents healthy w/o s/s of infiltration or complaint. Abdomen soft and supple. pt offered toileting, denies need to urinate or defecate. No personal affects with patient. Family st bedside. Pt and family verbalizes understanding of POC. Currently w/o complaint of pain or need.ds/rn
--- NOTE | 2019-09-09 17:30 | NUR ---
1730pPt meets DC criteria. Rt groin Mynx site assessed for s/s of complication and presence of hematoma. Skin warm, dry, no discolor, and pulses present. IV removed from rt hand. Distal tip appears intact. VS WNL. Pt denies pain, sob, or need at this time. Family at bedside. Review of discharge paperwork and follow up instructions. verbalized understanding. Pt to wheelchair and transported to front of hospital. Transferred to private vehicle under own strength w/o incident with DC paperwork in hand. - ds/rn
--- NOTE | 2019-09-09 20:12 | Operative Report ---
DATE OF PROCEDURE: 09/09/2019 SURGEON: Vernon Kapoor MD INDICATIONS: Coronary artery disease, unstable angina, abnormal stress test. PROCEDURES PERFORMED: 1. Left heart catheterization, selective coronary angiography. 2. Selective cannulation of two venous and one arterial bypass conduit. COMPLICATIONS: None. RECOMMENDATIONS: Medical therapy. DESCRIPTION OF PROCEDURE: Access was obtained in the right femoral artery. A 6-German sheath was placed. Coronary angiography demonstrated distal left main 90% extending into the circumflex ostium. Left anterior descending artery is occluded. Right coronary artery is occluded. Left internal mammary artery bypass to left anterior descending artery is widely patent. Saphenous vein bypass to obtuse marginal branches one and two widely patent. Saphenous vein bypass right posterior descending artery is widely patent. No intervention deemed necessary. Right groin Mynx closure device applied. The patient discharged home the same day. Vernon Kapoor MD KSB/MODL /[id number]
== END | disposition home or self-care (01) ==
LOC: CATH LAB 14:00
PROVIDERS: ATTEND Internal Medicine Interventional Cardiology
DX: I25.700 Atherosclerosis of coronary artery bypass graft(s), unspecified, with unstable angina pectoris (principal); R94.39 Abnormal result of other cardiovascular function study; I10 Essential (primary) hypertension; E78.00 Pure hypercholesterolemia, unspecified; I89.0 Lymphedema, not elsewhere classified; E11.9 Type 2 diabetes mellitus without complications; R05 Cough; E07.9 Disorder of thyroid, unspecified; Z01.812 Encounter for preprocedural laboratory examination; Z79.84 Long term (current) use of oral hypoglycemic drugs; Z79.82 Long term (current) use of aspirin; Z68.41 Body mass index [BMI] 40.0-44.9, adult; Z95.1 Presence of aortocoronary bypass graft; Z86.19 Personal history of other infectious and parasitic diseases; Z82.49 Family history of ischemic heart disease and other diseases of the circulatory system
CPT/HCPCS: 36415; 80053; 85025; 93455; C1760; J2001; J2250; J3010; J7030; Q9967; 99152; 99153

== ENCOUNTER 2020-04-01 03:01 | Emergency (ER) | payer MEDICARE ==
[~2020-04-01] VITALS: Ht 170.8 cm; Wt 104.3 kg
[~2020-04-01 03:01] MED LIST changes: -ALPRAZOLAM 0.5 MG TAB ONE; -DIPHENHYDRAMINE HCL 25 MG CAP ONE; -FENTANYL CITRATE/PF 100MCG/2 ML INJ ONE; -HEPARIN SOD/SOD CHLORIDE 2,000 ML ONE; -IOPAMIDOL 370 MG/ML 200 ML INFUS..BTL INJ ONE; -LIDOCAINE HCL 2% LOCAL 20 ML VIAL ONE; -MIDAZOLAM HCL 2 MG/2 ML VIAL ONE; -SODIUM CHLORIDE 0.9% 1000ML 1,000 ML ONE; -VERAPAMIL HCL 2.5 MG/ML 2 ML VIAL ONE
[2020-04-01] MEDS ORDERED: HYDROCODONE/APAP 7.5MG-325MG 1 EA TAB PO PRN (03:30)
--- OUTSIDE RECORDS SUMMARY | 2020-04-01 04:23 | XMS REPORT | Continuity of Care Document ---
Author Author Willis Stewart Funnely CHAZ Gloria Justyle Information [email or web address] Address Unknown Phone Unavailable Care Team Providers Care [employer] Person Name Role Phone Justyle Information [employer] Unavailable Un available Problems Problem Status Onset Date Classification Date Reported Comments Source Back pain Active Problem 02/24/2020 Wyatt Grayer Osteopenia Active Problem 02/24/2020 Wyatt Chong Rheumatoid arthritis Active Problem 02/24/2020 Wyatt Castillo Polyarthritis Active Problem 08/29/2019 Wyatt Castillo Inflammatory arthritis Active Problem 08/29/2019 Wyatt Chong Encounter for drug therapy Act ramya Diagnosis 0 10/31/2018 Wyatt Chong Lymphedema Active Problem 02/24/2020 Wyatt Chong 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 02/24/2020 Wyatt Chong Long-term use of high-risk medication Active Problem 10/2019 Wyatt Chong Medications Medication Details Route Status Patient Instructions Ordering Provider Order Date Source PredniSONE 1 tablet Orally Active 5 MG Orally Once a day [place] 12/30/2019 Wyatt Chong Hydroxychloroquine Sulfate 1 t ablet Orally Active 200 MG Orally twice a day [place] 12/30/2019 Wyatt Chong Inflectra as directed Intravenous Active 100 MG Intravenous [place] 10/30/2018 Wyatt Chong Humira 0.4 ml Subcutaneous Active 40 MG/0.4ML Subcutaneou s [facility] 07/31/2018 Wyatt Chong Humira 0.4 ml Subcutaneous Active 40 MG/0.4ML Subcutaneou s once every 2 wks Rudy 04/26/2018 Wyatt Chong Leflunomide 1 tablet Orally Active 20 MG Orally Once a day [place] 03/15/2018 Wyatt Chong PredniSONE 1 tab Orally Active 5 MG Orally Once a day [place] 08/23/2017 Wyatt Chong PredniSONE 1 tab Orally Active 5 MG Orally Once a day Rudy 08/23/2017 Wyatt Chong Leflunomide 1 tablet Orally Active 20 MG Orally Once a day [facility] 08/23/2017 Wyatt Chong Leflunomide 1 tablet Orally Active 10 MG Orally Once a day Rudy 08/23/2017 Wyatt Chong Hydroxychloroquine Sulfate 1 t ablet with food or milk Orally Active 200 MG Orally twice a day Yous af 08/03/2017 Wyatt Chong Prednisone Taper 3 tablets for 5 days, 2 tablets for 5 days and then 1 tablet for 5 days NA Active 5mg Y ousaf 08/03/2017 Wyatt Chong Stool Softener 1 capsule as ne eded Orally Active 100 MG Orally Once a day Jamie Chong Carvedilol as directed Orally Active 12.5 MG Orally Migue Chong Cetirizine HCl 1 tablet Orally Active 10 MG Orally Once a day Jamie Chong Cyclobenzaprine HCl 1 tablet a s needed Orally Active 5 MG Orally Twice a day Migue Chong Simvastatin 1 tablet in the ev ening Orally Active 40 MG Orally Once a day Jamie [facility]Cong Metformin HCl 1 tablet with a meal Orally Active 500 MG Orally Once a day Jaime Chong Hydroxychloroquine Sulfate 1 t ablet Orally Active 200 MG Orally twice a day Migue Chong Duloxetine HCl 1 capsule Orally Active 30 MG Orally Once a day Migue Chong Captopril as directed Orally Active 50 MG Orally Migue Chong Tramadol HCl 1 tablet as needed Orally Active 50 MG Orally every 6 hrs Migue Chong Oxybutynin Chloride ER 1 tablet Orally Active 5 MG Orally Once a day Jamie Chong Ranitidine HCl 1 tablet at bed time Orally Active 300 MG Orally Once a day Migue Chong Omeprazole 1 capsule Orally Active 40 MG Orally Once a day Jamie Chong Furosemide 1 tablet Orally Active 20 MG Orally Once a day Migue Chong Eric Aspirin EC Low Dose 1 ta blet Orally Active 81 MG Orally Once a day Jamie Chong Levothyroxine Sodium 1 tablet on an empty stomach in the morning Orally Active 75 MCG Orally Once a day Clare Chong PredniSONE 1 tablet Orally Active 5 MG Orally Once a day Migue Chong Cyclobenzaprine HCl 1 tablet a s needed Orally Active 5 MG Orally Twice a day Rudy Wyatt Chong Leflunomide TAKE 1 TABLET BY Caleb OUT ONCE DAILY NA Active 10 MG Rudy Wyatt Chong Advil 1 tablet with food or mi lk as needed Orally Active 200 MG Orally prn [place] Wyatt Chong Captopril as directed Orally Active 50 MG Orally Once a day [place] Wyatt Chong Tylenol Extra Strength 1 table t as needed Orally Active 500 MG Orally prn [place] Wyatt Grayer Leflunomide 1 tablet Orally Active 20 MG Orally Once a day [facility] Chong Carvedilol as directed Orally Active 12.5 MG [facility] Leflunomide 1 tablet Orally Active 20 mg Orally Once a day [facility] Chong Leflunomide 1 tablet Orally Active 20 MG Orally Once a day [facility] Jesusshruti Chong Lasix 2 tabs am, 1 tab pm Orally Active 20 MG Orally every 12 hours [place] Wyatt Grayer Lisinopril 1 tablet Orally Active 40 MG Orally Once a day [facility] jamie Grayer Folic Acid 1 tablet Orally Active 400 MCG Orally Once a d ay [place] Wyatt Chong Duloxetine HCl 1 capsule Orally Active 30 MG Orally Twice a da y Ayala Wyatt Chong Nitrostat as directed Sublingual Active 0.4 MG Sublingual [facility] jamie Grayer Singulair 1 tablet Orally Active 10 MG Orally Once a day [facility] Chong Calcium + D 1 tablet Orally Active 600-200 MG-UNIT Orally Twice a day [place] Wyatt Grayer Vitamin B6 1 tablet Orally Active 50 MG Orally Once a day [facility] Chong Allergies, Adverse Reactions, Alerts Substance Category Reaction Severity Reaction type Status Date Reported Comments Source Penicillin Adverse Reaction rash Adverse Reaction Active 12/30/2019 Wyatt Chong Immunizations No Data Provided for This Section Results No Data Provided for This Section Pathology Reports No Data Provided for This Section Diagnostic Reports No Data Provided for This Section Consultation Notes No Data Provided for This Section Discharge Summaries No Data Provided for This Section History and Physicals No Data Provided for This Section Vital Signs Vital Sign Value Date Comments Source Weight 233.4 12/30/2019 Wyatt Chong Height 66 0 12/30/2019 Wyatt Chong Temperature Oral (F) 97.3 F 12/30/2019 Wyatt Grayer Heart Rate 68 12/30/2019 Wyatt Chong Diastolic (mm Hg) 52 12/30/2019 Wyatt Chong Systolic (mm Hg) 138 12/30/2019 [place]att[place] Chong Weight 246.9 06/12/2019 Wyatt Chong Height 66 0 06/12/2019 Wyatt Chong Temperature Oral (F) 97.0 F 06/12/2019 Wyatt Chong Heart Rate 64 06/12/2019 Wyatt Chong Diastolic (mm Hg) 60 06/12/2019 Wyatt Chong Systolic (mm Hg) 110 06/12/2019 Wyatt Chong Weight 257.1 02/27/2019 Wyatt Chong Height 66 1 Wyatt Chong Temperature Oral (F) 98.9 F 02/27/2019 Wyatt Chong Heart Rate 60 02/27/2019 Wyatt Chong Diastolic (mm Hg) 78 02/27/2019 Wyatt Chong Systolic (mm Hg) 166 02/27/2019 Wyatt Chong Weight 246.1 10/30/2018 Wyatt Chong Height 65 0 10/30/2018 Wyatt Chong Temperature Oral (F) 97.2 [...] Weight 253.6 04/26/2018 Wyatt Chong Height 67 1 06/27/2017 Wyatt Chong Temperature Oral (F) 97.1 F 04/26/2018 Wyatt Chong Heart Rate 72 04/26/2018 Wyatt Chong Diastolic (mm Hg) 68 04/26/2018 Wyatt Chong Systolic (mm Hg) 140 04/26/2018 Wyatt Chong Weight 247 03/15/2018 Wyatt Chong Height 67 1 Wyatt Chong Temperature Oral (F) 97.1 F 03/15/2018 Wyatt Chong Heart Rate 74 03/15/2018 Wyatt Chong Diastolic (mm Hg) 70 03/15/2018 Wyatt Chong Systolic (mm Hg) 142 03/15/2018 Wyatt Chong Weight 248.8 12/13/2017 Wyatt Chong Height 67 0 12/13/2017 Wyatt Chong Temperature Oral (F) 97.1 F 12/13/2017 Wyatt Chong Heart Rate 76 12/13/2017 Wyatt Chong Diastolic (mm Hg) 80 12/13/2017 Wyatt Chong Systolic (mm Hg) 152 12/13/2017 Wyatt Chong Weight 255 08/23/2017 Wyatt Chong Height 67 0 08/23/2017 Wyatt Chong Temperature Oral (F) 96.7 F 08/23/2017 Wyatt Chong Heart Rate 70 08/23/2017 Wyatt Chong Diastolic (mm Hg) 64 08/23/2017 Wyatt Chong Systolic (mm Hg) 142 08/23/2017 Wyatt Chong Encounters No Data Provided for This Section Procedures No Data Provided for This Section Assessment and Plan No Data Provided for This Section Plan of Care No Data Provided for This Section Social History No Data Provided for This Section Family History No Data Provided for This Section Advance Directives No Data Provided for This Section Functional Status No Data Provided for This Section
--- OUTSIDE RECORDS SUMMARY | 2020-04-01 04:23 | XMS REPORT | Clinical Summary ---
Author Author [facility] Organization [facility] Address Unknown Phone Unavailable Care Team Providers Care Employee'S Representative Name Role Phone Ayaz Romero DO PCP Allergies Comments Active Allergy Reactions Severity Noted Date Beef Containing Products Rash Low 10/09 Grass Pollen Rash Low 10/10/2015 Penicillins Itching [...] Active Problems Problem Noted Date Atherosclerosis of [place] coronary artery of [place] h eart 10/10/2015 Atrial fibrillation 10/10/2015 Surgical History Surgery Date Site/Laterality Comments JOINT REPLACEMENT 05/21/1992 - Bilateral KNEE Replace menmt 05/20/1993 HIP SURGERY 05/21/1992 - Bilateral HIP replacment 05/20/1993 KNEE SURGERY 05/21/1992 - Bilateral Replacemernt 05/20/1993 Medical History Medical History Date Comments Angina pectoris (HCC) Cataract Coronary artery disease Hypertension Myocardial infarction (HCC) GERD (gastroesophageal reflux disease) Hypothyroidism Family History Medical History Relation Name Comments Heart disease Father Hyperlipidemia Father Heart disease Mother Hyperlipidemia Mother Hypertension Mother Kidney disease Mother Relation Name Status Comments Father Mother Social History Date Tobacco Use Types Packs/Day Years Used Never Smoker Drinks/Week oz/Week Comments Alcohol Use No Sex Assigned at Date Recorded Not on file Last Filed Vital Signs Not on file Plan of Treatment Health Maintenance Due Date Last Done Comments SHINGLES VACCINES (#1) 1987 65+ PNEUMOCOCCAL VACCINE 2002 (1 of 1 - PPSV23) INFLUENZA VACCINE 12/20/2019 Results Not on fileafter 04/01/2019 Insurance Type Payer Benefit Subscriber ID Effective Phone Address Plan / Dates Group HMO [employer] CIGNA [id number] [id number] [place]ALTH[place] resent NG HMO MCR ADV 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 MISC MISC [id number] 2015-P COMMERCIAL resent Advance Directives For more information, please contact: [phone] 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
--- OUTSIDE RECORDS SUMMARY | 2020-04-01 04:24 | XMS REPORT | Continuity of Care Document ---
Author Author [facility] t Organization [facility] t Address [address] [place] [id number] Phone Unavailable Care Team Providers Care Network Operations Center Technician Name Role Phone Keaton ROMERO DO PCP RENZO HERNANDEZ Attphys Unavailable EAMON VILLAR Attphys Unavailable GEOFFREY, S AMBICA Attphys Unavailable BERTHA NAYLOR Attphys Unavailable Sherry CAMPOS Attphys Unavailable OJEAS, S ROGERIO Attphys Unavailable NU SANABRIA Attphys Unavailable BERTHA NAYLOR Admphys Unavailable Payers Payer Name Policy Type Policy Number Effective Date Expiration Date Hailey Spivey [facility] [id number] 2018 00:00:00 [facility] Problems Condition Name Condition Details Condition Category Status Onset Date Resolution Date Last Treatment Date Treating Clinician Comments Source [place] coronary artery [place] he art [place]rosclerosis [place] coronary artery of [place] heart Disease Active 2015-10-10 00:00:00 [place] Atrial fibrillation Atrial fibrillation Disease Active 2015-10-10 00:00 :00 [place] Chest pain Chest pain Problem Active 2015-10-01 00:00:00 [facility] New onset atrial flutter New onset atrial flutter Problem Acti ve 2015-10-01 00:00:00 [facility] Chest pain Chest pain Problem Active 2015-06-07 00:00:00 [facility] Back pain Back pain Active Problem 02/24/2020 Wyatt Grayer Problem Active 2020-02-24 02:46:33 Willis Stewart Osteopenia Oste openia Active Problem 02/24/2020 Wyatt Chong Problem Active 2020-02-24 02:46:33 Willis Stewart Rheumatoid arthritis Rheu matoid arthritis Active Problem 02/24/2020 Wyatt Grayer Problem Active 2020-02-24 02:46:33 Willis Stewart Polyarthritis Poly arthritis Active Problem 08/29/2019 Wyatt Chong Problem Active 2019-08-29 03:01:20 Willis Stewart Inflammatory arthritis Infl ammatory arthritis Active Problem 08/29/2019 Wyatt Chong Problem Active 2019-08-29 03 :01:20 Willis Stewart Lymphedema Lymp hedema Active Problem 02/24/2020 Wyatt Chong Problem Active 2020-02-24 02:46:33 Willis Stewart 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 02/24/2020 Wyatt Chong Problem Active 2020-02-24 02:46:33 Willis Stewart Long-term use of high-risk medication Long-term use of high-risk medication Active Problem 02/24/2020 Wyatt Chong Problem Active 2020-02-24 02:46:33 [facility] Allergies, Adverse Reactions, Alerts Allergy Name Allergy Type Status Severity Reaction(s) Onset Date Inacti ve Date Treating Clinician Comments Source Penicillin Penicillin Active rash 2019-12-30 00:00:00 Willis Stewart Penicillins DA Active U 2019-11-26 00:00:00 [facility] No Known Allergies DA Active U 2019-11-26 00:00:00 [facility] Penicillin Allergy to Substance Active 2018-09-02 00:00:00 [facility] Beef Containing Products Propensity to adverse reactions to drug Acti ve Rash 2015-10-10 00:00:00 Abebe Meth odist Grass Pollen Propensity to adverse reactions to drug Active Rash 2015-10-10 00:00:00 Abebe krishna Shrimp Propensity to adverse reactions to drug Active Rash 2015-10-10 00:00:00 Abebe krishna Penicillins Propensity to adverse reactions to drug Active Itching 2015-10-09 00:00:00 Abebe krishna Family History Family Member Diagnosis Comments Start Date Stop Date Source Natural father Heart disease [facility]be [place]hani Natural father Hyperlipidemia [place] Natural mother Heart disease Abebe Lakhani Natural mother Hyperlipidemia [place] Natural mother Hypertension Abebe Lakhani Natural mother Kidney disease [place] Social History Social Habit Start Date Stop Date Quantity Comments Source Sex Assigned [place] [facility] Alcohol intake 2015-10-10 00:00:00 2015-10-10 00:00:00 Current non-drinker of alcohol (finding) Abebe Lakhani Smoking Status Start Date Stop Date Source Never smoker Abebe krishna Medications Ordered Medication Name Filled Medication Name Start Date Stop Da te Current Medication? Ordering Clinician Indication Dosage Frequency Signature (SIG) Comments Components Source Stool Softener 2020-01-06 02:46:15 Yes Anne Ayala 1 capsule as needed [facility] Cetirizine HCl 2020-01-06 02:46:15 Yes Anne Ayala 1 tablet [facility] Simvastatin 2020-01-06 02:46:15 Yes Anne Ayala 1 tablet in the evening [facility] Metformin HCl 2020-01-06 02:46:15 Yes Anne Ayala 1 tablet with a meal [facility] Oxybutynin Chloride ER 2020-01-06 02:46:15 Yes Anne Ayala 1 tablet [facility] Omeprazole 2020-01-06 02:46:15 Yes Anne Ayala 1 capsule [facility] Eric Aspirin EC Low Dose 2020-01-06 02:46:15 Yes Anne Ayala 1 tablet [facility] Levothyroxine Sodium 2020-01-06 02:46:15 Yes Anne Caly is 1 tablet on an empty stomach in the morning [facility] Advil 2020-01-06 02:46:15 Yes Anne Ayala 1 tablet with food or milk as needed [facility] Tylenol Extra Strength 2020-01-06 02:46:15 Yes Anne Berry rris 1 tablet as needed [facility] Carvedilol 2020-01-06 02:46:15 Yes Anne Ayala as directed [facility] Leflunomide 2020-01-06 02:46:15 Yes Anne Ayala 1 tablet [facility] Lasix 2020-01-06 02:46:15 Yes Anne Ayala 2 tab s am, 1 tab pm [facility] Lisinopril 2020-01-06 02:46:15 Yes Anne Ayala 1 tablet [facility] Folic Acid 2020-01-06 02:46:15 Yes Anne Ayala 1 tablet [facility] Duloxetine HCl 2020-01-06 02:46:15 Yes Anne Ayala 1 capsule [facility] Nitrostat 2020-01-06 02:46:15 Yes Anne portillo s directed [facility] Singulair 2020-01-06 02:46:15 Yes Anne Ayala 1 tablet [facility] Calcium + D 2020-01-06 02:46:15 Yes Anne Ayala 1 tablet [facility] Vitamin B6 2020-01-06 02:46:15 Yes Anne Ayala 1 tablet [facility] PredniSONE 2019-12-30 00:00:00 Yes Anne Jamie 1 tablet [facility] Hydroxychloroquine Sulfate 2019-12-30 00:00:00 Yes Chong Ayala 1 tablet [facility] Carvedilol 2019-09-21 02:45:22 Yes Mallika Horn as directed [facility] Cyclobenzaprine HCl 2019-09-21 02:45:22 Yes Mallika Horn 1 tablet as needed [facility] Hydroxychloroquine Sulfate 2019-09-21 02:45:22 Yes Mallika Horn 1 tablet [facility] Duloxetine HCl 2019-09-21 02:45:22 Yes Mallika Horn 1 capsule [facility] Captopril 2019-09-21 02:45:22 Yes Mallika Horn as d irected [facility] Tramadol HCl 2019-09-21 02:45:22 Yes Mallika Horn 1 tablet as needed [facility] Ranitidine HCl 2019-09-21 02:45:22 Yes Mallika Horn 1 tablet at bedtime [facility] Furosemide 2019-09-21 02:45:22 Yes Mallika Horn 1 t ablet [facility] PredniSONE 2019-09-21 02:45:22 Yes Mallika Horn 1 t ablet [facility] Leflunomide 2019-09-21 02:45:22 Yes Mallika Horn 1 tablet [facility] Captopril 2019-06-26 03:46:28 Yes Anne flores directed [facility] Leflunomide 2019-06-26 03:46:28 Yes Anne Ayala 1 tablet [facility] Inflectra 2018-10-30 00:00:00 Yes Anne flores directed [facility] Captopril 25 Mg Tablet Captopril 25 Mg Tablet 2018-09-06 00:00:00 Yes Rani Narvaez [employer] 50 Twice A Day [facility] Cyclobenzaprine HCl 2018-08-03 02:46:11 Yes Wajeeha Yous af 1 tablet as needed [facility] Humira 2018-07-31 00:00:00 Yes Wajeeha Rudy 0.4 ml [facility] Humira 2018-04-26 00:00:00 Yes Wajeeha Rudy 0.4 ml [facility] Leflunomide 2018-03-22 02:48:14 Yes Wajeeha Rudy TAKE 1 TABLET BY MOUTH ONCE DAILY [facility] Leflunomide 2018-03-15 00:00:00 Yes Alfred Chong 1 tablet [facility] PredniSONE 2017-08-23 00:00:00 Yes Alfred Chong 1 tab [facility] PredniSONE 2017-08-23 00:00:00 Yes Wajeeha Rudy 1 tab [facility] Leflunomide 2017-08-23 00:00:00 Yes Wajeeha Rudy 1 tablet [facility] Leflunomide 2017-08-23 00:00:00 Yes Wajeeha Rudy 1 tablet [facility] Hydroxychloroquine Sulfate 2017-08-03 00:00:00 Yes Amna berry Rudy 1 tablet with food or milk [facility] Prednisone Taper 2017-08-03 00:00:00 Yes Wajeeha Rudy 3 tablets for 5 days, 2 tablets for 5 days and then 1 tablet for 5 days [facility] simvastatin (ZOCOR) 40 MG tablet 2015-10-16 17:33:20 Yes 40mg QD Take 40 mg by mouth nightly. Abebe Lakhani DULoxetine (CYMBALTA) 30 MG capsule 2015-10-16 17:33:20 Yes 30mg QD Take 30 mg by mouth daily. Abebe Lakhani captopril (CAPOTEN) 50 MG tablet 2015-10-16 17:33:20 Yes 50mg Q.5D Take 50 mg by mouth 2 (two) times a day. Janie Lakhani pantoprazole (PROTONIX) 40 MG EC tablet 2015-10-16 17:33:20 Yes 40mg QD Take 40 mg by mouth daily. Abebe ruiz meloxicam (MOBIC) 7.5 MG tablet 2015-10-16 17:33:20 Yes 7.5mg QD Take 7.5 mg by mouth daily. Abebe Lakhani levothyroxine (SYNTHROID, LEVOTHROID) 100 MCG tablet 2 17:33:20 Yes 100ug QD Take 100 mcg by mouth every morning. Abebe Lakhani traMADol (ULTRAM) 50 mg tablet 2015-10-16 17:33:20 Yes 50mg Q6H Take 50 mg by mouth every 6 (six) hours as needed for moderate pain. Abebe Lakhani cetirizine (ZyrTEC) 10 MG tablet 2015-10-16 17:33:20 Yes 10mg Q24H Take 10 mg by mouth daily as needed for allergies. Abebe Lakhani furosemide (LASIX) 20 MG tablet 2015-10-16 17:33:20 Yes 20mg Q.5D Take 20 mg by mouth 2 (two) times a day. Janie Lakhani ranitidine (ZANTAC) 150 MG tablet 2015-10-16 17:33:20 Yes 150mg Q.5D Take 150 mg by mouth 2 (two) times a day. Abebe Lakhani oxybutynin (DITROPAN) 5 MG tablet 2015-10-16 17:33:20 Yes 5mg Take 5 mg by mouth daily. Abebe Lakhani Ascorbate Calcium (Vitamin C) 500 Mg Tablet Ascorbate Calcium (Vitamin C) 500 Mg Tablet Yes 500 Daily [facility] Aspirin 325 Mg Tablet Aspirin 325 Mg Tablet Yes 325 Daily as needed [facility] Benzonatate 100 Mg Capsule Benzonatate 100 Mg Capsule Yes 100 Daily [facility] Calcium Carb/Vit D3/Minerals (Calcium 600 + D Tablet) 1 Each Tablet Calcium Carb/Vit D3/Minerals (Calcium 600 + D Tablet) 1 Each Tablet Yes Daily [facility] Carvedilol 12.5 Mg Tablet Carvedilol 12.5 Mg Tablet Yes 12.5 Twice A Day [facility] Duloxetine Hcl (Cymbalta) 30 Mg Capsule. Duloxetine Hcl (Cymbalta) 30 Mg Capsule. Yes 30 Twice A Day [facility] Folic Acid 1 Mg Tablet Folic Acid 1 Mg Tablet Yes 400 Twice A Day [facility] Furosemide (Lasix) 20 Mg Tablet Furosemide (Lasix) 20 Mg Tablet Yes 20 Daily [facility] Ketoconazole 15 Gm Cream..g. Ketoconazole 15 Gm Cream..g. Y es 1 Twice A Day [facility] Leflunomide 20 Mg Tablet Leflunomide 20 Mg Tablet Yes 20 Daily [facility] Levothyroxine Sodium (Levoxyl) 75 Mcg Tablet Levothyro xine Sodium (Levoxyl) 75 Mcg Tablet Yes 75 Daily [facility] Lisinopril 40 Mg Tablet Lisinopril 40 Mg Tablet Yes 40 Daily [facility] Metformin Hcl (Glumetza) 500 Mg [id number] Metformin H cl (Glumetza) 500 Mg [id number] Yes 500 Daily [facility] Nitroglycerin (Nitrostat) 0.4 Mg Tab.subl Nitroglyceri n (Nitrostat) 0.4 Mg Tab.subl Yes .4 as needed for Chest Pain [facility] Omeprazole 40 Mg Capsule. Omeprazole 40 Mg Capsule. Yes 40 Daily [facility] Prednisone 5 Mg Tablet Prednisone 5 Mg Tablet Yes 5 Daily [facility] Simvastatin 40 Mg Tablet Simvastatin 40 Mg Tablet Yes 40 Daily [facility] Terbinafine Hcl 250 Mg Tablet Terbinafine Hcl 250 Mg Tablet Yes 250 Daily [facility] Vitamin E 400 Unit Capsule Vitamin E 400 Unit Capsule Yes 400 Daily [facility] Captopril 50 Mg Tablet, 50 Mg Oral Captopril 50 Mg Tablet, 50 Mg Oral 2018-09-06 00:00:00 No 50 Twice A Day [facility] Furosemide 40 Mg Tablet, 40 Mg Oral Furosemide 40 Mg Tablet, 40 Mg Oral 2018-09-06 00:00:00 No 40 Daily [facility] Furosemide 20 Mg Tablet, 20 Mg Oral Furosemide 20 Mg Tablet, 20 Mg Oral 2015-12-06 00:00:00 No 20 Twice A Day [facility] Albuterol Sulfate (Proair Hfa Inhaler*) 8.5 Gm Inh, Un known Dose Albuterol Sulfate (Proair Hfa Inhaler*) 8.5 Gm Inh, Unknown Dose 2015-09-19 00:00:00 No [facility] Meloxicam 7.5 Mg Tablet, 7.5 Mg Oral Meloxicam 7.5 Mg Tablet, 7. 5 Mg Oral 2015-10-02 00:00:00 No 7.5 Daily [facility] Mometasone Furoate (Nasonex) 17 Gm [place], Unknown Dose Mometasone Furoate (Nasonex) 17 Gm [place], Unknown Dose 2015-10-02 00:00:00 No [facility] Neomy Sulf/Colist Sul/Hc/Thonz (Cortispo rin-Tc Ear Susp) 10 Ml Drops.susp, 5 Drop Topically Neomy Sulf/Colist Sul/Hc/Thonz (Cortispo rin-Tc Ear Susp) 10 Ml Drops.susp, 5 Drop Topically 2015-10-02 00:00:00 No 5 Three Times A Day as needed for + [facility] Atenolol (Tenormin) 100 Mg Tablet, 100 Mg Oral Atenolo l (Tenormin) 100 Mg Tablet, 100 Mg Oral 2015-06-08 00:00:00 No 100 Claudette y [facility] Gabapentin 300 Mg Capsule, 300 Mg Oral Gabapentin 300 Mg Capsule , 300 Mg Oral 2015-06-08 00:00:00 No 300 Three Times A Day [facility] Levofloxacin (Levaquin) 500 Mg Tablet, 500 Mg Oral Lev ofloxacin (Levaquin) 500 Mg Tablet, 500 Mg Oral 2015-06-08 00:00:00 No 500 D aily [facility] Lorazepam (Ativan*) 0.5 Mg Tablet, 0.5 Mg Oral Lorazep am (Ativan*) 0.5 Mg Tablet, 0.5 Mg Oral 2015-06-08 00:00:00 No .5 Twic e A Day [facility] Ondansetron Hcl (Zofran*) 4 Mg Tablet, 4 Mg Oral Ondan setron Hcl (Zofran*) 4 Mg Tablet, 4 Mg Oral 2015-06-08 00:00:00 No 4 Three Times A Day as needed [facility] Sertraline Hcl (Zoloft) 20 Mg/1 Ml Oral.conc, 25 Mg Or al Sertraline Hcl (Zoloft) 20 Mg/1 Ml Oral.conc, 25 Mg Oral 2015-06-08 00:00:00 No 25 Daily [facility] Tramadol Hcl (Ultram 50MG*) 50 Mg Tab, 50 Mg Oral Tram adol Hcl (Ultram 50MG*) 50 Mg Tab, 50 Mg Oral 2015-06-08 00:00:00 No 50 Every 6 Hours as needed for Pain [facility] Duloxetine Hcl (Cymbalta) 30 Mg Capsule.dr, 30 Mg Oral Duloxetine Hcl (Cymbalta) 30 Mg Capsule.dr, 30 Mg Oral 2013-01-24 00:00:00 No 30 Twice A Day [facility] Fexofenadine Hcl 180 Mg Tablet, 180 Mg Oral Fexofenadi ne Hcl 180 Mg Tablet, 180 Mg Oral 2013-01-24 00:00:00 No 180 Daily [facility] Potassium Chloride 10 Meq Tab.er.prt, 10 Meq Oral Pota ssium Chloride 10 Meq Tab.er.prt, 10 Meq Oral 2013-01-24 00:00:00 No 10 Daily [facility] Ranitidine Hcl 300 Mg Tablet, 300 Mg Oral Ranitidine H cl 300 Mg Tablet, 300 Mg Oral 2013-01-24 00:00:00 No 300 Daily [facility] Selenium 200 Mcg Capsule, 200 Mcg Oral Selenium 200 Mcg Capsule, 200 Mcg Oral 2013-01-24 00:00:00 No 200 Daily [facility] Vital Signs Vital Name Observation Time Observation Value Comments Source Weight 2019-12-30 16:15:00 [facility] Height 2019-12-30 16:15:00 [facility] Temperature Oral (F) 2019-12-30 16:15:00 97.3 F [facility] Heart Rate 2019-12-30 16:15:00 [facility] Diastolic (mm Hg) 2019-12-30 16:15:00 [facility] [place] Systolic (mm Hg) 2019-12-30 16:15:00 [facility] Weight 2019-06-12 17:00:00 [facility] Height 2019-06-12 17:00:00 [facility] Temperature Oral (F) 2019-06-12 17:00:00 97.0 F [facility] Heart Rate 2019-06-12 17:00:00 [facility] Diastolic (mm Hg) 2019-06-12 17:00:00 [facility] Systolic (mm Hg) 2019-06-12 17:00:00 [facility] [place] Weight 2019-02-27 19:30:00 [facility] [place] Height 2019-02-27 19:30:00 [facility] Temperature Oral (F) 2019-02-27 19:30:00 98.9 F [facility] Heart Rate 2019-02-27 19:30:00 [facility] Diastolic (mm Hg) 2019-02-27 19:30:00 [facility] Systolic (mm Hg) 2019-02-27 19:30:00 [facility] [place] Weight 2018-10-30 16:30:00 [facility] Height 2018-10-30 16:30:00 [facility] Temperature Oral (F) 2018-10-30 16:30:00 97.2 F [facility] Heart Rate 2018-10-30 16:30:00 [facility] Diastolic (mm Hg) 2018-10-30 16:30:00 [facility] Systolic (mm Hg) 2018-10-30 16:30:00 [facility] Weight 2018-07-31 16:45:00 [facility] Height 2018-07-31 16:45:00 [facility] Temperature Oral (F) 2018-07-31 16:45:00 96.9 F [facility] Heart Rate 2018-07-31 16:45:00 [facility] Diastolic (mm Hg) 2018-07-31 16:45:00 [facility] [place] Systolic (mm Hg) 2018-07-31 16:45:00 [facility] [place] Weight 2018-06-07 16:15:00 [facility] Height 2018-06-07 16:15:00 [facility] Temperature Oral (F) 2018-06-07 16:15:00 97.0 F [facility] Heart Rate 2018-06-07 16:15:00 [facility] Diastolic (mm Hg) 2018-06-07 16:15:00 [facility] Systolic (mm Hg) 2018-06-07 16:15:00 [facility] [place] Weight 2018-04-26 16:45:00 [facility] Height 2018-04-26 16:45:00 [facility] Temperature Oral (F) 2018-04-26 16:45:00 97.1 F [facility] Heart Rate 2018-04-26 16:45:00 [facility] Diastolic (mm Hg) 2018-04-26 16:45:00 [facility] Systolic (mm Hg) 2018-04-26 16:45:00 [facility] [place] Weight 2018-03-15 14:45:00 [facility] [place] Height 2018-03-15 14:45:00 [facility] [place] Temperature Oral (F) 2018-03-15 14:45:00 97.1 F [facility] Heart Rate 2018-03-15 14:45:00 [facility] Diastolic (mm Hg) 2018-03-15 14:45:00 [facility] [place] Systolic (mm Hg) 2018-03-15 14:45:00 [facility] [place] Weight 2017-12-13 15:30:00 [facility] Height 2017-12-13 15:30:00 [facility] Temperature Oral (F) 2017-12-13 15:30:00 97.1 F [facility] Heart Rate 2017-12-13 15:30:00 [facility] Diastolic (mm Hg) 2017-12-13 15:30:00 [facility] Systolic (mm Hg) 2017-12-13 15:30:00 [facility] Weight 2017-08-23 13:45:00 [facility] Height 2017-08-23 13:45:00 [facility] Temperature Oral (F) 2017-08-23 13:45:00 96.7 F [facility] Heart Rate 2017-08-23 13:45:00 [facility] Diastolic (mm Hg) 2017-08-23 13:45:00 [facility] Systolic (mm Hg) 2017-08-23 13:45:00 [facility] Procedures Procedure Date / Time Performed Performing Clinician [facility] Computed tomography of cervical spine without contrast 12-07 00:00:00 EAMON TRIVEDI [facility] Computed tomography of brain without radiopaque contrast 201 01-26-20 00:00:00 EAMON TRIVEDI [facility] Computed tomography of brain without radiopaque contrast 201 01-22-22 00:00[facility] of cervical spine without contrast 09-09 00:00[facility]00 [facility], two views 2018-09-02 00:00:00 HARJINDER CAMPOS [facility] US abdomen complete 2018-07-09 00:00:00 ROGERIO OLIVARES [facility] Plan of Care Planned Activity Planned Date Details Comments Source Future Scheduled Test 2019-12-20 00:00:00 INFLUENZA VACCINE [code = INFLUENZA VACCINE] [facility] Future Scheduled Test 2002 00:00:00 65+ PNEUMOCOCCAL V ACCINE (1 of 1 - PPSV23) [code = 65+ PNEUMOCOCCAL VACCINE (1 of 1 - PPSV23)] [facility] Future Scheduled Test 1987 00:00:00 SHINGLES VACCINES (#1) [code = SHINGLES VACCINES (#1)] [facility] Encounters Start Date/Time End Date/Time Encounter Type Admission Type Attendi [facility] Care Department Encounter ID Source 2020-02-23 09:44:00 2020-02-23 09:44:00 Outpatient Alfred Chong MD [place] [id number] Wyatt Chong MD 2019-12-30 11:15:00 2019-12-30 11:15:00 Outpatient Alfred Chong MD PA [id number] Wyatt Chong MD 2019-11-04 11:51:00 2019-11-04 11:51:00 Outpatient MD EVANS La MD [place] [id number] Wyatt Chong MD 2019-09-20 14:26:00 2019-09-20 14:26:00 Outpatient Alfred Chong MD PA [id number] Wyatt Chong MD 2019-09-11 08:55:00 2019-09-11 08:55:00 Outpatient Alfred KRUEGER [id number] LEAH Chong MD 2019-06-12 11:00:00 2019-06-12 11:00:00 Outpatient Alfred KRUEGER [id number] Wyatt Chong MD 2019-06-02 14:15:00 2019-06-02 14:15:00 Outpatient Alfred Chong MD PA [id number] Wyatt Chong MD 2019-03-11 13:25:00 2019-03-11 13:25:00 Outpatient MD EVANS La MD [place] [id number] Wyatt Chong MD 2019-03-04 16:16:00 2019-03-04 16:16:00 Outpatient MD EVANS La MD [place] [id number] Wyatt Chong MD 2019-02-27 14:30:00 2019-02-27 14:30:00 Outpatient Alfred Chong MD PA [id number] Wyatt Chong MD 2018-12-07 19:06:00 2018-12-07 21:21:00 Departed Emergency Room 1 JIAN EAMON [facility] [id number] [facility] 2018-11-28 15:25:00 2018-11-28 15:25:00 Outpatient Alfred Chong MD PA [id number] LEAH Chong MD 2018-11-19 12:00:00 2018-11-19 12:00:00 Outpatient lAfred KRUEGER [id number] LEAH Chong MD 2018-10-30 11:33:00 2018-10-30 11:33:00 Outpatient MD EVANS La MD [place] [id number] LEAH Chong MD 2018-10-30 11:30:00 2018-10-30 11:30:00 Outpatient Alfred KRUEGER [id number] Wyatt Chong MD 2018-10-17 14:13:00 2018-10-17 14:13:00 Outpatient Alfred KRUEGER [id number] Wyatt Chong MD 2018-09-09 03:07:00 2018-09-09 05:15:00 Departed Emergency Room 1 TOBIAS HALE [facility] [id number] [facility] 2018-09-03 23:28:00 2018-09-06 10:49:00 Discharged Inpatient (obs) 1 BERTHA NAYLOR [facility] [id number] [facility] 2018-09-02 07:35:00 2018-09-02 12:06:00 Departed Emergency Room 1 HARJINDER CAMPOS [facility] [id number] [facility] 2018-07-31 11:45:00 2018-07-31 11:45:00 Outpatient Alfred Chong MD [place] [id number] Wyatt Chong MD 2018-07-09 07:47:00 2018-07-09 07:47:00 Registered Clinic 3 ROGERIO DIAZ [facility] [id number] [facility] 2018-06-07 10:15:00 2018-06-07 10:15:00 Outpatient Alfred KRUEGER [id number] Wyatt Chong MD 2018-06-07 10:02:00 2018-06-07 10:02:00 Outpatient Alfred Chong MD PA [id number] LEAH Chong MD 2018-05-03 15:30:00 2018-05-03 15:30:00 Outpatient Alfred KRUEGER [id number] LEAH Chong MD 2018-04-26 10:48:00 2018-04-26 10:48:00 Outpatient Alfred Chong MD PA [id number] Wyatt Chong MD 2018-04-26 10:45:00 2018-04-26 10:45:00 Outpatient Alfred KRUEGER [id number] Wyatt Chong MD 2018-03-15 10:34:00 2018-03-15 10:34:00 Outpatient Alfred KRUEGER [id number] Wyatt Chong MD 2018-03-15 09:45:00 2018-03-15 09:45:00 Outpatient Alfred KRUEGER [id number] Wyatt Chong MD 2017-12-13 10:30:00 2017-12-13 10:30:00 Outpatient Alfred KRUEGER [id number] Wyatt Chong MD 2017-12-09 09:57:00 2017-12-09 12:26:00 Departed Emergency Room [facility] [id number] [facility] 2017-08-23 08:45:00 2017-08-23 08:45:00 Outpatient Alfred KRUEGER [id number] Wyatt Chong MD 2017-08-12 18:05:00 2017-08-12 21:03:00 Departed Emergency Room NU JENNINGS [facility] [id number] [facility] 2016-10-30 13:33:00 2016-10-30 16:47:00 Departed Emergency Room [facility] [id number] [facility] Results Test Description Test Time Test Comments Results Result Comments Source SCR MAMM BILATERAL ELIZA CAD DIGITAL 2020-02-19 10:41:52 - SCR MAMM BILATERAL ELIZA CAD DIGITALBILATERAL DIGITAL SCREENING MAMMOGRAM 3D/2D WITH CAD: 02/18/2020CLINICAL: Asymptomatic. Digital breast tomosynthesis was performed in addition to routine CC and MLO views. Current mammographic images were evaluated by either a Secpanel M-Vu or a JobFlashcker CAD (computer aided detection system). Comparison is made to exams dated 01/03/2019 mammogram, 11/13 mammogram, and 10/09/2016 mammogram - [facility]. There are scattered fibroglandular tissues in both breasts. There are benign calcifications in both breasts. No suspicious mass, architectural distortion, malignant type calcification, or lymph node abnormality detected. Breast architecture is stable compared to prior exams.IMPRESSION: BENIGNThere is no mammographic evidence of malignancy. Resume annual screening mammography in one year. Brooks Elizabeth M.D. ss/penrad:02/19/2020 10:41:52 Screenplay Writer: Vee LEPE, [facility] sent: BIRADS 1-2 Normal Mammogram BI-RADS: 2 Benign - XR FOOT 3 + V LT 2019-12-11 18:22:00 Name: Rosario ROCKCHAZ ANN [facility] : 1935 Age/S:84 /F [address] [facility] Unit#:[id number] Loc: [place] [address] Phys: Ankit Sullivan Dis Date: PHONE #: [phone] Status: REG ER FAX #: [phone] Exam Date: 12/11/2019 Reason: PAIN S/P FALL EXAMS: CPT CODE: [id number] XR FOOT 3 + [place] [address] REASON FOR EXAM: PAIN S/P FALL EXAM ORDER DATE: 12/11/2019 4:24 PM Ordering: Ankit Sullivan Attending:Nino Gamez MD Location:[facility] PROCEDURE: - XR FOOT 3 + V LT FINDINGS: 3 views of the left foot were obtained. The osseous structures are unremarkable in size and shape aside from status post amputation of the left forearm phalanx. The joint spaces are maintained. No evidence of fracture. The phalanges are intact. The metatarsal and tarsal bones are unremarkable IMPRESSION: No acute osseous abnormality at 1822 Reported and signed by: Brock Cole M.D. CC: Nino Gamez MD; Ayaz Romero DO; Ankit Sullivan Technologist: Priyankaben Viramontes RT(R)(CT) Trnscrpt Data: 12/11/2019 (1821) ManuelL Orig Print D/T: S: 12/11/2019 (1824) PAGE 1 Signed Report - XR SHOULDER 2 + V LT 2019-12-11 18:16:00 Nam e: CHAZ ABDI [facility] : 1935 Age/S:84 /F [address] [facility] Unit#:[id number] Loc: [place] [address] Phys: Ankit Sullivan Dis Date: PHONE #: [phone] Status: REG ER FAX #: [phone] Exam Date: 12/11/2019 Reason: PAIN S/P FALL EXAMS: CPT CODE: [id number] XR SHOULDER 2 + V LT [address]141 REASON FOR EXAM: PAIN S/P FALL EXAM ORDER DATE: 12/11/2019 4:24 PM Ordering: Ankit Sullivan Attending:Nino Gamez MD Location:[facility] PROCEDURE: - XR SHOULDER 2 + V LT FINDINGS: 3 views of the left shoulder were obtained. The osseous structures are unremarkable in size and shape. The joint spaces are maintained. There is normal alignment of the humeral head. No evidence of fracture. The acromial clavicular joint is intact IMPRESSION: Unremarkable left shoulder at 1816 Reported and signed by: Brock Cole M.D. CC: Nino Gamez MD; Ayaz Romero DO; Ankit Sullivan Technologist: Jeermy Viramontes RT(R)(CT) Trnscrpt Data: 12/11/2019 (1815) JudyVTMariana Orig Print D/T: S: 12/11/2019 (1818) PAGE 1 Signed Report - XR RIBS UNI W/CXR 3+V LT 2019-12-11 18:16:00 Name: CHAZ ABDI [facility] : 1935 Age/S:84 /F [address] [facility] Unit#:[id number] Loc: [place] [address] Phys: Ankit Sullivan Dis Date: PHONE #: [phone] Status: REG ER FAX #: [phone] Exam Date: 12/11/2019 Reason: PAIN S/P FALL EXAMS: CPT CODE: [id number] XR RIBS UNI W/CXR 3+V LT [address] REASON FOR EXAM: PAIN S/P FALL EXAM ORDER DATE: 12/11/2019 4:24 PM Ordering:Ankit Sullivan Attending:Nino Gamez MD Location:[facility] PROCEDURE: - XR RIBS UNI W/CXR 3+V LT FINDINGS: 5 views of the frontal view of the chest and left ribs were obtained. The osseous structures are unremarkable in size and shape. No evidence of pneumothorax or hemothorax. No evidence of displaced rib fracture. IMPRESSION: Unremarkable left ribs at 1816 Reported and signed by: Brock Cole M.D. CC: Nino Gamez MD; Ayaz Romero DO; Ankit Sullivan Technologist: Jeremy Viramontes RT(R)(CT) Trnscrpt Data: 12/11/2019 (1815) t.SDR.VTL Orig Print D/T: S: 12/11/2019 (1818) PAGE 1 Signed Report - XR SACRUM/COCCYX 2 + V 2019-11-26 15:36:00 N juan pablo: CHAZ ABDI [facility] : 1935 Age/S:84 /F [address] [facility] Unit#:[id number] Loc: [place] [address] Phys: Augie Sol MD Dis Date: PHONE #: [phone] Status: REG ER FAX #: [phone] Exam Date: 11/26/2019 Reason: fall, pain EXAMS: CPT CODE: [id number] XR SACRUM/COCCYX 2 + V 31866 HISTORY: fall, pain TECHNIQUE: AP, lateral, and lumbosacral views of the lumbar spine as well as AP and lateral views of the sacrum and coccyx. Comparison:Pelvis radiographs June 04, 2014 FINDINGS/ IMPRESSION: There is scoliosis of the lumbar spine. There is also multilevel disc height loss and moderate to large sized vertebral body osteophytes at multiple levels of both the thoracic and lumbar spine. Right hip a rthroplasty is present. No evidence of hardware loosening. No fracture is seen. Location: [facility] at 1536 Reported and signed by: Fredi Castorena MD CC: yAaz Romero DO; Augie Sol MD Technologist: RICO ROGERS RT(R),CT Trnscrpt Data: 11/26/2019 (1536) t.SDR.RR31 Orig Print D/T: S: 11/26/2019 (0652) PAGE 1 Signed Report - XR L-SPINE 2/3 VIEWS 2019-11-26 15:36:00 Nam e: CHAZ ABDI [facility] : 1935 Age/S:84 /F [address] [facility] Unit#:[id number] Loc: [place] [address] Phys: Augie Sol MD Dis Date: PHONE #: [phone] Status: REG ER FAX #: [phone] Exam Date: 11/26/2019 Reason: fall, pain EXAMS: CPT CODE: [id number] XR L-SPINE 2/3 VIEWS 20559 HISTORY: fall, pain TECHNIQUE: AP, lateral, and lumbosacral views of the lumbar spine as well as AP and lateral views of the sacrum and coccyx. Comparison:Pelvis radiographs June 04, 2014 FINDINGS/ IMPRESSION: There is scoliosis of the lumbar spine. There is also multilevel disc height loss and moderate to large sized vertebral body osteophytes at multiple levels of both the thoracic and lumbar spine. Right hip a rthroplasty is present. No evidence of hardware loosening. No fracture is seen. Location: [facility] at 1536 Reported and signed by: Fredi Castorena MD CC: Ayaz Romero DO; Augie Sol MD Technologist: RICO ROGERS, RT(R),CT Trnscrpt Data: 11/26/2019 (1536) [email or web address] Orig Print D/T: S: 11/26/2019 (9877) PAGE 1 Signed Report URINALYSIS COMPLETE 2019-11-26 14:46:00 Test Item UA COLOR (test code = COLU) DARK YELLOW YELLOW A UA APPEARANCE (test code = APPU) Cloudy CLEAR A UA GLUCOSE DIPSTICK (test code = DGLUU) norm mg/dL NEGATIVE UA BILIRUBIN DIPSTICK (test code = BILU) NEGATIVE mg/dL NEGATIVE UA KETONE DIPSTICK (test code = KETU) neg mg/dL NEGATIVE UA SPECIFIC GRAVITY (test code = SGU) 1.020 1.001-1.035 UA BLOOD DIPSTICK (test code = PHOENIX) 10 (Trace) Michelet/uL NEGATIVE A UA PH DIPSTICK (test code = MANPREET) 5.0 5.0-8.0 UA PROTEIN DIPSTICK (test code = PROU) 30 (1+) mg/dL Neg-15 A UA UROBILINIOGEN DIPSTICK (test code = URO) norm mg/dL 0.0-0.2 UA NITRITE DIPSTICK (test code = VERÓNICA) POSITIVE NEGATIVE UA LEUKOCYTE ESTERASE DIPSTICK (test code = LEUU) 500 Arsen/uL (3+) u L NEGATIVE A UA WBC (test code = WBCU) 51-100 per HPF 0-5 A UA RBC (test code = RBCU) 0-3 per HPF 0-5 UA EPITHELIAL CELLS (test code = EPIU) Few (2-5/hpf) per HPF Few UA BACTERIA (test code = BACU) LOADED per HPF NONE A URINALYSIS W/O [id number] 14:46:00* Test Item Value Reference Range Interpretation Comments UA MICROSCOPIC NEEDED? (test code = UAMICRO) YES URINALYSIS [id number] 14:43:00* Test Item Value Reference Range Interpretation Comments UA COLOR (test code = COLU) DARK YELLOW YELLOW A UA APPEARANCE (test code = APPU) Cloudy CLEAR A UA GLUCOSE DIPSTICK (test code = DGLUU) norm mg/dL NEGATIVE UA BILIRUBIN DIPSTICK (test code = BILU) NEGATIVE mg/dL NEGATIVE UA KETONE DIPSTICK (test code = KETU) neg mg/dL NEGATIVE UA SPECIFIC GRAVITY (test code = SGU) 1.020 1.001-1.035 UA BLOOD DIPSTICK (test code = PHOENIX) 10 (Trace) Michelet/uL NEGATIVE A UA PH DIPSTICK (test code = MANPREET) 5.0 5.0-8.0 UA PROTEIN DIPSTICK (test code = PROU) 30 (1+) mg/dL Neg-15 A UA UROBILINIOGEN DIPSTICK (test code = URO) norm mg/dL 0.0-0.2 UA NITRITE DIPSTICK (test code = VERÓNICA) POSITIVE NEGATIVE UA LEUKOCYTE ESTERASE DIPSTICK (test code = LEUU) 500 Arsen/uL (3+) u L NEGATIVE A UA WBC (test code = WBCU) per HPF 0-5 UA RBC (test code = RBCU) per HPF 0-5 UA EPITHELIAL CELLS (test code = EPIU) per HPF Few UA BACTERIA (test code = BACU) per HPF NONE URINALYSIS W/O [id number] 14:43:00* Test Item Value Reference Range Interpretation Comments UA MICROSCOPIC NEEDED? (test code = UAMICRO) YES URINALYSIS [id number] 14:43:00* Test Item Value Reference Range Interpretation Comments UA COLOR (test code = COLU) DARK YELLOW YELLOW A UA APPEARANCE (test code = APPU) Cloudy CLEAR A UA GLUCOSE DIPSTICK (test code = DGLUU) norm mg/dL NEGATIVE UA BILIRUBIN DIPSTICK (test code = BILU) NEGATIVE mg/dL NEGATIVE UA KETONE DIPSTICK (test code = KETU) neg mg/dL NEGATIVE UA SPECIFIC GRAVITY (test code = SGU) 1.020 1.001-1.035 UA BLOOD DIPSTICK (test code = PHOENIX) 10 (Trace) Michelet/uL NEGATIVE A UA PH DIPSTICK (test code = MANPREET) 5.0 5.0-8.0 UA PROTEIN DIPSTICK (test code = PROU) 30 (1+) mg/dL Neg-15 A UA UROBILINIOGEN DIPSTICK (test code = URO) norm mg/dL 0.0-0.2 UA NITRITE DIPSTICK (test code = VERÓNICA) POSITIVE NEGATIVE UA LEUKOCYTE ESTERASE DIPSTICK (test code = LEUU) 500 Arsen/uL (3+) u L NEGATIVE A UA WBC (test code = WBCU) per HPF 0-5 UA RBC (test code = RBCU) per HPF 0-5 UA EPITHELIAL CELLS (test code = EPIU) per HPF Few UA BACTERIA (test code = BACU) per HPF NONE URINALYSIS W/O [id number] 14:43:00* Test Item Value Reference Range Interpretation Comments UA MICROSCOPIC NEEDED? (test code = UAMICRO) YES Stress Test - Treadmill [id number] 13:02:00 [place] [address] Patient Name : CHAZ ABDI MR #: [id number] : 1935 Age/Sex: 84/F Adm Physician : RENZO HERNANDEZ MD Admit Date : 08/14/19 Location : [place] Room/Bed : REPORT: Myoview Stress Test DATE OF STUDY: 08/14/2019 09:11:00 Stress Test - Treadmill ONLY VINITA DY PERFORMED: Nuclear stress report. PROCEDURE TITLE: Rest/stress single i sotope SPECT and SPECT imaging with pharmacologic stress and gated SPECT imagin g. INDICATION: Chest pain. PROCEDURE IN DETAIL: A pharmacologic stres s testing was performed with regadenoson per protocol. The heart rate was 59 b eats per minute at rest and increased to 74 beats per minute during the regaden oson infusion. The resting blood pressure is 141/55 mmHg and decreased to 123/ 49 mmHg, which is a normal response. The resting electrocardiogram demonstrate d normal sinus rhythm. There were no ST-segment changes suggestive of myocardi al ischemia. Myocardial perfusion imaging was performed at rest following t he injection of 11 mCi of tetrofosmin. At peak pharmacologic effect, the patie nt was injected with 32.7 mCi of tetrofosmin. Gated post-stress tomographic im aging was performed. FINDINGS: The overall quality of study is fair. Left ventricular cavity is noted to be normal size on the rest and stress studies. SPECT images demonstrate a small mild perfusion defect in the inferolateral wa ll on stress that is not present on rest. Gated SPECT imaging reveals normal my ocardial thickening and wall motion. Left ventricular ejection fraction calcul ated to be 69%. IMPRESSION: Myocardial perfusion imaging is abnormal. The re is a small mild area of ischemia in the inferolateral wall. Overall, left s ystolic function was normal without regional wall motion abnormalities. Ashlee Marin MD ABS/OZ D: 07/21 13:02:09 /[id number] Signa ture Date Dictated By: ASHLEE MARIN MD Transcribed By: MODL on <Electronically signed by ASHLEE MARIN MD><<Signature on File>> 09/10/19 1141 COPY TO: SCR MAMM BILATERAL ELIZA CAD [id number] 10:11:20 - SCR MAMM BILATERAL ELIZA CAD DIGITALBILATERAL DIGITAL SCREENING MAMMOGRAM 3D/2D WITH CAD: 01/03/2019CLINICAL: Asymptomatic. Digital breast tomosynthesis was performed in addition to routine CC and MLO views. Current mammographic images were evaluated by either a Secpanel M-Vu or a Smart Museum ImageChecker CAD (computer aided detection system). Comparison is made to exams dated 11/13/2017 mammogram, 10/09/2016 mammogram, and 08/31/2014 mammogram - [facility] There are scattered fibroglandular tissues in both breasts. There are benign calcifications in both breasts. No suspicious mass, architectural distortion, malignant type calcification, or lymph node abnormality detected. Breast architecture is stable compared to prior exams.IMPRESSION: BENIGNThere is no mammographic evidence of malignancy. Resume annual screening mammography in one year. Brooks Elizabeth M.D. ss/penrad:01/06/2019 10:11:20 Screenplay Writer: Kenisha LEPE, [facility] sent: BIRADS 1-2 Normal Mammogram BI-RADS: 2 BenignCT CERVICAL SPINE [id number] 20:15:00 [place] [address] Patient Name: CHAZ ABDI MR #: [id number] : 1935 Age/Sex: 83/F Req #: [id number] Adm Physician: Ordered by: EAMON TRIVEDI FOLDING MACHINE SETTER Report #: [id number] Location: ER Room/Bed: Procedure: [id number] CT /CT CERVICAL SPINE WO Exam Date: 12/07/18 Exam Time: 1944 REPORT STATUS: Signed * ADDENDUM #1 Impression: No acute cervical spine fracture or dislocation. Signed by: Dr. Lupe Aldana M.D. on 12/07/2018 8:41 PM ORIGINAL REPORT History: Status post fall. Compari son studies: CT cervical spine from 09/09/2018. Technique: Axial images w ere obtained through the cervical region.. Coronal and sagittal images reconst ructed from the axial data. Dose modulation, iterative reconstruction, and/or weight based adjustment of the mA/kV was utilized to reduce the radiation dose to as low as reasonably achievable. Intravenous contrast: None Find ings: Fractures: None. Soft tissue injuries: None. Atlantoaxial nando culation: Intact. Alignment: Loss of normal cervical lordosis is either positi onal or due to muscle spasm. No scoliosis. Cervicomedullary junction: No abn ormalities. The foramen magnum is patent. Soft tissues: Atherosclerotic calcif ication in bilateral carotid bulb. Vertebrae: No fractures, infection or neoplasm. Degenerative changes: C4-C5: Mild to moderate degenerative di sc disease. Posterior disc osteophyte complex without canal stenosis. Mild r ight and moderate left foraminal stenosis due to uncovertebral arthrosis. C5-C 6: Mild degenerative disc disease. Mild right foraminal stenosis due to uncove rtebral arthrosis. . Incidental findin.4 mm calcified nodule in lef t lung apex. IMPRESSION: 1. Fracture or dislocation. Loss of normal c ervical lordosis is either positional or due to muscle muscle spasm. 2. Ligament, spinal cord and or vascular abnormalities cannot be excluded on the basis of this examination. 3. Cervical spondylosis as detailed above. Signed by: Dr. Lupe Aldana M.D. on 12/07/2018 8:23 PM Dictated By: LUPE ALDANA MD 40 Transcribed By: NORMA on 12/07/182022 COPY TO: EAMON TRIVEDI NP CT BRAIN [id number] 20:09:00 [place] [address] Patient Name: CHAZ ABDI MR #: [id number] : 1935 Age/Sex: 83/F Req #: [id number] Adm Physician: Ordered by: EAMON TRIVEDI FOLDING MACHINE SETTER Report #: [id number] Location: ER Room/Bed: Procedure: [id number] CT /CT BRAIN WO Exam Date: 12/07/18 Exam Time: 1944 REPORT STATUS: Signed EXAMINATION: Head CT without contrast. HISTORY:Status post fall. COMPARISON:C T brain from 09/09/2018. TECHNIQUE: Multidetector axial images were obtained from the foramen magnum to the vertex without contrast. The images were recon structed using brain and bone algorithms. Thin section brain images were refo rmatted into coronal and sagittal planes. Dose modulation, iterative reconst ruction, and/or weight based adjustment of the mA/kV was utilized to reduce th e radiation dose to as low as reasonably achievable. Intravenous contrast : None IMAGE QUALITY: Acceptable. FINDINGS: Skull/scalp: No ly tic or blastic. lesions. No surgical changes. Parenchyma: Nonspecific regan ateral frontoparietal patchy white matter hypodensity are likely related to sm all vessel ischemic changes. No acute hemorrhage, mass or acute major vascular territorial infarct. Arteries: No density suggestive of thrombosis. Athe rosclerotic calcification in bilateral carotid siphon. Dural sinuses: N o abnormal density suggestive of thrombosis. Ventricles: Moderate compens ated dilatation due to volume loss. No hydrocephalus. Extra-axial spaces : No abnormal density. Brain volume: Generalized age-related cerebral vo lume loss. Craniocervical junction: No mass, Chiari malformation, or basil ar invagination. Sella: Partial empty sella. Paranasal/mastoid si nuses: Minimal mucosal thickening in left sphenoid sinus. IMPRESSION: 1. No acute intracranial abnormality. 2. Minimal supratentorial white matter microvascular ischemic changes. 3. Generalized age-related cerebral volume loss. Signed by: Dr. Lupe Aldana M.D. on 12/07/2018 8:15 PM Dictated By: LUPE ALDANA MD 14 Transcribed By: NORMA on 12/07/182014 COPY TO: BOBBY RTEAMON FOLDING MACHINE SETTER CT CERVICAL SPINE [id number] 04:06:00 [place] [address] Patient Name: CHAZ ABDI MR #: [id number] : 1935 Age/Sex: 83/F Req #: [id number] [facility] Physician: Ordered by: TOBIAS HALE MD Report #: [id number] Location: ER Room/Bed: Procedure: [id number] CT /CT CERVICAL SPINE WO Exam Date: 09/09/18 Exam Time: 324 REPORT STATUS: Signed Hist ory: Trauma, fall. Comparison studies: CT cervical spine from 02/06/2014. Technique: Axial images were obtained through the cervical region.. Cor onal and sagittal images reconstructed from the axial data. Dose modulation, i terative reconstruction, and/or weight based adjustment of the mA/kV was utili zed to reduce the radiation dose to as low as reasonably achievable. Intr avenous contrast: None Findings: Fractures: None. Soft tissue injuri es: None. Atlantoaxial articulation: Intact. Alignment: Loss of normal ce rvical lordosis is either positional or due to muscle spasm. No scoliosis. C ervicomedullary junction: No abnormalities. The foramen magnum is patent. Soft tissues: Atherosclerotic calcification in bilateral carotid bulb. Vertebra e: No fractures, infection or neoplasm. Degenerative changes: C4-C5: Mild degenerative disc disease. Mild right and moderate left foraminal stenosi s due to facet and uncovertebral arthrosis. C5-C6: Mild to moderate degenera tive disc disease. Posterior disc osteophyte complex results in mild canal jennifer nosis. Mild right foraminal stenosis due to uncovertebral arthrosis.. IMP RESSION: 1. No acute cervical spine fracture or dislocation. Loss of cindy l cervical lordosis is either positional or due to muscle spasm. 2. Liga ment, spinal cord and or vascular abnormalities cannot be excluded on the basi s of this examination. 3. Cervical spondylosis as detailed above. Signed by: Dr. Lupe Aldana M.D. on 09/09/2018 4:10 AM Dictated By: LUPE ALDANA MD 10 Transcribed By: NORMA on 09/09/18 0410 COPY TO: TOBIAS HALE MD CT BRAIN [id number] 04:02:00 [place] [address] Patient Name: CHAZ ABDI MR #: [id number] : 1935 Age/Sex: 83/F Req #: [id number] Adm Physician: Ordered by: TOBIAS HALE MD Report #: [id number] Location: ER Room/Bed: Procedure: [id number] CT /CT BRAIN WO Exam Date: 09/09/18 Exam Time: 324 REPORT STATUS: Signed EXAMINATION: Head CT without contrast. HISTORY:Trauma, fall. COMPARISON:CT bra in from 02/06/2014. TECHNIQUE: Multidetector axial images were obtained from the foramen magnum to the vertex without contrast. The images were reconstruc ed using brain and bone algorithms. Thin section brain images were reformatt ed into coronal and sagittal planes. Dose modulation, iterative reconstructi on, and/or weight based adjustment of the mA/kV was utilized to reduce the rad iation dose to as low as reasonably achievable. Intravenous contrast: Non e IMAGE QUALITY: Acceptable. FINDINGS: Skull/scalp: No lytic o r blastic. lesions. No surgical changes. Parenchyma: No abnormal density. No acute hemorrhage, mass or acute major vascular territorial infarct. Arteries: No density suggestive of thrombosis. Atherosclerotic calcification in bilateral carotid siphon. Dural sinuses: No abnormal density suggestiv e of thrombosis. Ventricles: Moderate compensated dilatation due to volum e loss. No hydrocephalus. Extra-axial spaces: No abnormal density. Brain volume: Generalized age-related cerebral volume loss. Craniocervi jacinto junction: No mass, Chiari malformation, or basilar invagination. Shira la: No mass. Paranasal/mastoid sinuses: Imaged portions unremarkable. IMPRESSION: No acute intracranial abnormality. Generalized age-relat ed cerebral volume loss. Signed by: Dr. Lupe Aldana M.D. on 09/09/2018 4:06 AM Dictated By: LUPE ALDANA MD 5 Transcribed By: NORMA on 09/09/18405 CO PY TO: TOBIAS HALE MD Prothrombin [id number] 07:52:00* Test Item Value Reference Range Interpretation Comments Prothrombin Time (test code = 5902-2) 12.6 11.9-14.5 [facility] International Ratio 2018-09-06 07:52:00* Test Item Value Reference Range Interpretation Comments Prothromb Time International Ratio (test code = 6301-6) 0.90 Oral Anticoagulant Therapy INR Values:1. Low Intensity Therapy 1.5 - 2.02 . Moderate Intensity Therapy 2.0 - 3.03. High Intensity Therapy(1) 2.5 - 3. 54. High Intensity Therapy(2) 3.0 - 4.05. Panic Value INR > 5.0 [facility]anoAct[facility] Partial Thromboplast Time 2018-09-06 07:52:00* Test Item Value Reference Range Interpretation Comments Activated Partial Thromboplast Time (test code = 61428-9) 17.8 23.8-35.5 L [facility]anoProthrombin [id number] 07:52:00* Test Item Value Reference Range Interpretation Comments Prothrombin Time (test code = 5902-2) 12.6 11.9-14.5 [facility] International Ratio 2018-09-06 07:52:00* Test Item Value Reference Range Interpretation Comments Prothromb Time International Ratio (test code = 6301-6) 0.90 Oral Anticoagulant Therapy INR Values:1. Low Intensity Therapy 1.5 - 2.02 . Moderate Intensity Therapy 2.0 - 3.03. High Intensity Therapy(1) 2.5 - 3. 54. High Intensity Therapy(2) 3.0 - 4.05. Panic Value INR > 5.0 [facility]Act[facility] Partial Thromboplast Time 2018-09-06 07:52:00* Test Item Value Reference Range Interpretation Comments Activated Partial Thromboplast Time (test code = 06795-5) 17.8 23.8-35.5 L [facility]anoProthrombin [id number] 07:52:00* Test Item Value Reference Range Interpretation Comments Prothrombin Time (test code = 5902-2) 12.6 11.9-14.5 [facility]anoPro[facility] Time International Ratio 2018-09-06 07:52:00* Test Item Value Reference Range Interpretation Comments Prothromb Time International Ratio (test code = 6301-6) 0.90 Oral Anticoagulant Therapy INR Values:1. Low Intensity Therapy 1.5 - 2.02 . Moderate Intensity Therapy 2.0 - 3.03. High Intensity Therapy(1) 2.5 - 3. 54. High Intensity Therapy(2) 3.0 - 4.05. Panic Value INR > 5.0 [facility]anoAct[facility] Partial Thromboplast Time 2018-09-06 07:52:00* Test Item Value Reference Range Interpretation Comments Activated Partial Thromboplast Time (test code = 71571-5) 17.8 23.8-35.5 L [facility] PlanoWhite Blood [id number] 07:09:00* Test Item Value Reference Range Interpretation Comments White Blood Count (test code = 6690-2) 7.08 4.8-10.8 [facility]anoRed Blood [id number] 07:09:00* Test Item Value Reference Range Interpretation Comments Red Blood Count (test code = 789-8) 3.83 3.6-5.1 [facility]anoHemoglobin2019-04-19 07:09:00* Test Item Value Reference Range Interpretation Comments Hemoglobin (test code = 41721-0) 11.1 12.0-16.0 L [facility]anoHematocrit2019-04-19 07:09:00* Test Item Value Reference Range Interpretation Comments Hematocrit (test code = 4544-3) 35.9 34.2-44.1 [facility] PlanoMean Corpuscular Gaoyiu0663-54-73 07:09:00* Test Item Value Reference Range Interpretation Comments Mean Corpuscular Volume (test code = 787-2) 93.7 81-99 [facility]Mean Corpuscular Agxtssesct1127-92-29 07:09:00* Test Item Value Reference Range Interpretation Comments Mean Corpuscular Hemoglobin (test code = 785-6) 29.0 28-32 [facility]Mean Corpuscular Hemoglobin Concent 2018-09-06 07:09:00* Test Item Value Reference Range Interpretation Comments Mean Corpuscular Hemoglobin Concent (test code = 786-4) 30.9 31-35 L [facility]anoRed Cell Distribution Srlzl5801-82-44 07:09:00* Test Item Value Reference Range Interpretation Comments Red Cell Distribution Width (test code = 81349-4) 13.4 11.7 -14.4 [facility]anoPlatelet Jizpk5541-30-87 07:09:00* Test Item Value Reference Range Interpretation Comments Platelet Count (test code = 777-3) 174 140-360 [facility]anoNeutrophils (%) (Auto)2018-09-06 07:09:00 * Test Item Value Reference Range Interpretation Comments Neutrophils (%) (Auto) (test code = 50224-7) 64.3 38.7-80.0 [facility]anoLymphocytes (%) (Auto)2018-09-06 07:09:00 * Test Item Value Reference Range Interpretation Comments Lymphocytes (%) (Auto) (test code = 736-9) 20.5 18.0-39.1 [facility]anoMonocytes (%) (Auto)2018-09-06 07:09:00* Test Item Value Reference Range Interpretation Comments Monocytes (%) (Auto) (test code = 5905-5) 12.1 4.4-11.3 H [facility]anoEosinophils (%) (Auto)2018-09-06 07:09:00 * Test Item Value Reference Range Interpretation Comments Eosinophils (%) (Auto) (test code = 713-8) 2.1 0.0-6.0 [facility]Basophils (%) (Auto)2018-09-06 07:09:00* Test Item Value Reference Range Interpretation Comments Basophils (%) (Auto) (test code = 706-2) 0.7 0.0-1.0 [facility]anoIM GRANULOCYTES %2018-09-06 07:09:00* Test Item Value Reference Range Interpretation Comments IM GRANULOCYTES % (test code = IM GRANULOCYTES %) 0.3 0.0- 1.0 [facility]anoNeutrophils # (Auto)2018-09-06 07:09:00* Test Item Value Reference Range Interpretation Comments Neutrophils # (Auto) (test code = 751-8) 4.6 2.1-6.9 [facility]anoLymphocytes # (Auto)2018-09-06 07:09:00* Test Item Value Reference Range Interpretation Comments Lymphocytes # (Auto) (test code = 28547-8) 1.5 1.0-3.2 [facility]anoMonocytes # (Auto)2018-09-06 07:09:00* Test Item Value Reference Range Interpretation Comments Monocytes # (Auto) (test code = 742-7) 0.9 0.2-0.8 H [facility]anoEosinophils # (Auto)2018-09-06 07:09:00* Test Item Value Reference Range Interpretation Comments Eosinophils # (Auto) (test code = 711-2) 0.2 0.0-0.4 [facility]anoBasophils # (Auto)2018-09-06 07:09:00* Test Item Value Reference Range Interpretation Comments Basophils # (Auto) (test code = 704-7) 0.1 0.0-0.1 [facility]anoAbsolute Immature Granulocyte (auto 2018-09-06 07:09:00* Test Item Value Reference Range Interpretation Comments Absolute Immature Granulocyte (auto (ever t code = Absolute Immature Granulocyte (auto) 0.02 0-0.1 [facility]anoWhite Blood Ccfdf0607-40-26 07:09:00* Test Item Value Reference Range Interpretation Comments White Blood Count (test code = 6690-2) 7.08 4.8-10.8 [facility]anoRed Blood Kbarw9002-53-23 07:09:00* Test Item Value Reference Range Interpretation Comments Red Blood Count (test code = 789-8) 3.83 3.6-5.1 [facility]anoHemoglobin2019-04-19 07:09:00* Test Item Value Reference Range Interpretation Comments Hemoglobin (test code = 70895-0) 11.1 12.0-16.0 L [facility]anoHematocrit2019-04-19 07:09:00* Test Item Value Reference Range Interpretation Comments Hematocrit (test code = 4544-3) 35.9 34.2-44.1 [facility]Mean Corpuscular Uyrpmd8579-77-81 07:09:00* Test Item Value Reference Range Interpretation Comments Mean Corpuscular Volume (test code = 787-2) 93.7 81-99 [facility]Mean Corpuscular Qmgrthdkmo6334-95-58 07:09:00* Test Item Value Reference Range Interpretation Comments Mean Corpuscular Hemoglobin (test code = 785-6) 29.0 28-32 [facility]Mean Corpuscular Hemoglobin Concent 2018-09-06 07:09:00* Test Item Value Reference Range Interpretation Comments Mean Corpuscular Hemoglobin Concent (test code = 786-4) 30.9 31-35 L [facility]anoRed Cell Distribution Qqyzo2527-74-17 07:09:00* Test Item Value Reference Range Interpretation Comments Red Cell Distribution Width (test code = 68516-1) 13.4 11.7 -14.4 [facility]anoPlatelet Kjxgm4215-96-68 07:09:00* Test Item Value Reference Range Interpretation Comments Platelet Count (test code = 777-3) 174 140-360 [facility]anoNeutrophils (%) (Auto)2018-09-06 07:09:00 * Test Item Value Reference Range Interpretation Comments Neutrophils (%) (Auto) (test code = 76297-4) 64.3 38.7-80.0 [facility]anoLymphocytes (%) (Auto)2018-09-06 07:09:00 * Test Item Value Reference Range Interpretation Comments Lymphocytes (%) (Auto) (test code = 736-9) 20.5 18.0-39.1 [facility]anoMonocytes (%) (Auto)2018-09-06 07:09:00* Test Item Value Reference Range Interpretation Comments Monocytes (%) (Auto) (test code = 5905-5) 12.1 4.4-11.3 H [facility]anoEosinophils (%) (Auto)2018-09-06 07:09:00 * Test Item Value Reference Range Interpretation Comments Eosinophils (%) (Auto) (test code = 713-8) 2.1 0.0-6.0 [facility]Basophils (%) (Auto)2018-09-06 07:09:00* Test Item Value Reference Range Interpretation Comments Basophils (%) (Auto) (test code = 706-2) 0.7 0.0-1.0 [facility]anoIM GRANULOCYTES %2018-09-06 07:09:00* Test Item Value Reference Range Interpretation Comments IM GRANULOCYTES % (test code = IM GRANULOCYTES %) 0.3 0.0- 1.0 [facility]anoNeutrophils # (Auto)2018-09-06 07:09:00* Test Item Value Reference Range Interpretation Comments Neutrophils # (Auto) (test code = 751-8) 4.6 2.1-6.9 [facility]anoLymphocytes # (Auto)2018-09-06 07:09:00* Test Item Value Reference Range Interpretation Comments Lymphocytes # (Auto) (test code = 25090-3) 1.5 1.0-3.2 [facility]anoMonocytes # (Auto)2018-09-06 07:09:00* Test Item Value Reference Range Interpretation Comments Monocytes # (Auto) (test code = 742-7) 0.9 0.2-0.8 H [facility]anoEosinophils # (Auto)2018-09-06 07:09:00* Test Item Value Reference Range Interpretation Comments Eosinophils # (Auto) (test code = 711-2) 0.2 0.0-0.4 [facility]Basophils # (Auto)2018-09-06 07:09:00* Test Item Value Reference Range Interpretation Comments Basophils # (Auto) (test code = 704-7) 0.1 0.0-0.1 [facility]anoAbsolute Immature Granulocyte (auto 2018-09-06 07:09:00* Test Item Value Reference Range Interpretation Comments Absolute Immature Granulocyte (auto (ever t code = Absolute Immature Granulocyte (auto) 0.02 0-0.1 [facility]anoWhite Blood Qrgis9792-36-51 07:09:00* Test Item Value Reference Range Interpretation Comments White Blood Count (test code = 6690-2) 7.08 4.8-10.8 [facility]anoRed Blood Mdorz1285-19-39 07:09:00* Test Item Value Reference Range Interpretation Comments Red Blood Count (test code = 789-8) 3.83 3.6-5.1 [facility]anoHemoglobin2019-04-19 07:09:00* Test Item Value Reference Range Interpretation Comments Hemoglobin (test code = 94023-3) 11.1 12.0-16.0 L [facility]anoHematocrit2019-04-19 07:09:00* Test Item Value Reference Range Interpretation Comments Hematocrit (test code = 4544-3) 35.9 34.2-44.1 [facility]Mean Corpuscular Zsphsv9962-21-18 07:09:00* Test Item Value Reference Range Interpretation Comments Mean Corpuscular Volume (test code = 787-2) 93.7 81-99 [facility]Mean Corpuscular Jbkakghfvi5166-47-82 07:09:00* Test Item Value Reference Range Interpretation Comments Mean Corpuscular Hemoglobin (test code = 785-6) 29.0 28-32 [facility]Mean Corpuscular Hemoglobin Concent 2018-09-06 07:09:00* Test Item Value Reference Range Interpretation Comments Mean Corpuscular Hemoglobin Concent (test code = 786-4) 30.9 31-35 L [facility]anoRed Cell Distribution Zdegh0692-11-37 07:09:00* Test Item Value Reference Range Interpretation Comments Red Cell Distribution Width (test code = 41616-3) 13.4 11.7 -14.4 [facility]anoPlatelet Vewwe6199-49-86 07:09:00* Test Item Value Reference Range Interpretation Comments Platelet Count (test code = 777-3) 174 140-360 [facility]anoNeutrophils (%) (Auto)2018-09-06 07:09:00 * Test Item Value Reference Range Interpretation Comments Neutrophils (%) (Auto) (test code = 14107-6) 64.3 38.7-80.0 [facility]anoLymphocytes (%) (Auto)2018-09-06 07:09:00 * Test Item Value Reference Range Interpretation Comments Lymphocytes (%) (Auto) (test code = 736-9) 20.5 18.0-39.1 [facility]anoMonocytes (%) (Auto)2018-09-06 07:09:00* Test Item Value Reference Range Interpretation Comments Monocytes (%) (Auto) (test code = 5905-5) 12.1 4.4-11.3 H [facility]anoEosinophils (%) (Auto)2018-09-06 07:09:00 * Test Item Value Reference Range Interpretation Comments Eosinophils (%) (Auto) (test code = 713-8) 2.1 0.0-6.0 [facility]Basophils (%) (Auto)2018-09-06 07:09:00* Test Item Value Reference Range Interpretation Comments Basophils (%) (Auto) (test code = 706-2) 0.7 0.0-1.0 [facility]anoIM GRANULOCYTES %2018-09-06 07:09:00* Test Item Value Reference Range Interpretation Comments IM GRANULOCYTES % (test code = IM GRANULOCYTES %) 0.3 0.0- 1.0 [facility]anoNeutrophils # (Auto)2018-09-06 07:09:00* Test Item Value Reference Range Interpretation Comments Neutrophils # (Auto) (test code = 751-8) 4.6 2.1-6.9 [facility]anoLymphocytes # (Auto)2018-09-06 07:09:00* Test Item Value Reference Range Interpretation Comments Lymphocytes # (Auto) (test code = 77684-4) 1.5 1.0-3.2 [facility]anoMonocytes # (Auto)2018-09-06 07:09:00* Test Item Value Reference Range Interpretation Comments Monocytes # (Auto) (test code = 742-7) 0.9 0.2-0.8 H [facility]anoEosinophils # (Auto)2018-09-06 07:09:00* Test Item Value Reference Range Interpretation Comments Eosinophils # (Auto) (test code = 711-2) 0.2 0.0-0.4 [facility]anoBasophils # (Auto)2018-09-06 07:09:00* Test Item Value Reference Range Interpretation Comments Basophils # (Auto) (test code = 704-7) 0.1 0.0-0.1 [facility]anoAbsolute Immature Granulocyte (auto 2018-09-06 07:09:00* Test Item Value Reference Range Interpretation Comments Absolute Immature Granulocyte (auto (ever t code = Absolute Immature Granulocyte (auto) 0.02 0-0.1 [facility]anoB-Type Natriuretic Tutjpcj3565-12-78 07:03:00* Test Item Value Reference Range Interpretation Comments B-Type Natriuretic Peptide (test code = 38538-8) 132.0 0-100 H [facility] PlanoB-Type Natriuretic Khbxvva2409-41-81 07:03:00* Test Item Value Reference Range Interpretation Comments B-Type Natriuretic Peptide (test code = 42063-9) 132.0 0-100 H [facility]anoB-Type Natriuretic Uqnnykl6243-06-52 07:03:00* Test Item Value Reference Range Interpretation Comments B-Type Natriuretic Peptide (test code = 11152-4) 132.0 0-100 [facility] Xfrew4075-84-27 07:02:00* Test Item Value Reference Range Interpretation Comments Sodium Level (test code = 2951-2) 146 136-145 H [facility]anoPotassium Anqgx0519-86-29 07:02:00* Test Item Value Reference Range Interpretation Comments Potassium Level (test code = 2823-3) 4.2 3.5-5.1 [facility]anoChloride Xprno7064-84-94 07:02:00* Test Item Value Reference Range Interpretation Comments Chloride Level (test code = 2075-0) 111 98-107 H [facility] PlanoCarbon Dioxide Duprb1543-29-48 07:02:00* Test Item Value Reference Range Interpretation Comments Carbon Dioxide Level (test code = 2028-9) 24 22-29 [facility] PlanoAnion Waq4247-80-64 07:02:00* Test Item Value Reference Range Interpretation Comments Anion Gap (test code = 22623-1) 15.2 8-16 [facility]anoBlood Urea Jvhmonll5864-14-33 07:02:00* Test Item Value Reference Range Interpretation Comments Blood Urea Nitrogen (test code = 3094-0) 15 7-26 [facility]anoCreatinine2019-04-19 07:02:00* Test Item Value Reference Range Interpretation Comments Creatinine (test code = 2160-0) 0.86 0.57-1.11 [facility]anoBUN/Creatinine Kmmim9043-96-33 07:02:00* Test Item Value Reference Range Interpretation Comments BUN/Creatinine Ratio (test code = 3097-3) 17 6-25 [facility] PlanoEstimat Glomerular Filtration Rate 2018-09-06 07:02:00* Test Item Value Reference Range Interpretation Comments Estimat Glomerular Filtration Rate (test code = 602733651) > 60 >60 Ranges were taken from the National Kidney Disease Education Program and the [facility] literature.Reference ranges:60 or greater: Jflabk07-85 ( for 3 consecutive months): Chronic kidney disease 15 or less: Kidney failureChildren's Medical Center PlanoGlucose Bfngg0671-00-39 07:02:00* Test Item Value Reference Range Interpretation Comments Glucose Level (test code = YEH9459) 126 74-118 H [facility]anoCalcium Txxsk5054-20-15 07:02:00* Test Item Value Reference Range Interpretation Comments Calcium Level (test code = 98588-3) 8.5 8.4-10.2 [facility]anoMagnesium Dnysq1117-14-44 07:02:00* Test Item Value Reference Range Interpretation Comments Magnesium Level (test code = 16432-5) 2.1 1.3-2.1 [facility]odium Ugphx1069-32-19 07:02:00* Test Item Value Reference Range Interpretation Comments Sodium Level (test code = 2951-2) 146 136-145 H [facility]anoPotassium Fscyr6623-92-31 07:02:00* Test Item Value Reference Range Interpretation Comments Potassium Level (test code = 2823-3) 4.2 3.5-5.1 [facility]anoChloride Hrpxw6867-34-42 07:02:00* Test Item Value Reference Range Interpretation Comments Chloride Level (test code = 2075-0) 111 98-107 H [facility] PlanoCarbon Dioxide Jfmtz1768-73-16 07:02:00* Test Item Value Reference Range Interpretation Comments Carbon Dioxide Level (test code = 2028-9) 24 22-29 [facility] PlanoAnion Cei9138-22-06 07:02:00* Test Item Value Reference Range Interpretation Comments Anion Gap (test code = 99356-5) 15.2 8-16 [facility]anoBlood Urea Fegrulbp3588-54-59 07:02:00* Test Item Value Reference Range Interpretation Comments Blood Urea Nitrogen (test code = 3094-0) 15 7-26 [facility]anoCreatinine2019-04-19 07:02:00* Test Item Value Reference Range Interpretation Comments Creatinine (test code = 2160-0) 0.86 0.57-1.11 [facility]anoBUN/Creatinine Jplck4232-22-09 07:02:00* Test Item Value Reference Range Interpretation Comments BUN/Creatinine Ratio (test code = 3097-3) 17 6- [facility] PlanoEstimat Glomerular Filtration Rate 2018-09-06 07:02:00* Test Item Value Reference Range Interpretation Comments Estimat Glomerular Filtration Rate (test code = 066175702) > 60 >60 Ranges were taken from the National Kidney Disease Education Program and the [facility] Foundation literature.Reference ranges:60 or greater: Tecbkq39-80 ( for 3 consecutive months): Chronic kidney disease 15 or less: Kidney failureChildren's Medical Center PlanoGlucose Rvvoe9550-32-04 07:02:00* Test Item Value Reference Range Interpretation Comments Glucose Level (test code = FGV1733) 126 74-118 H [facility] PlanoCalcium Eqpqx9564-27-06 07:02:00* Test Item Value Reference Range Interpretation Comments Calcium Level (test code = 36665-4) 8.5 8.4-10.2 [facility] PlanoMagnesium Svdvm8548-13-58 07:02:00* Test Item Value Reference Range Interpretation Comments Magnesium Level (test code = 66182-7) 2.1 1.3-2.1 [facility]odium Cfsdv7827-06-04 07:02:00* Test Item Value Reference Range Interpretation Comments Sodium Level (test code = 2951-2) 146 136-145 H [facility] PlanoPotassium Fialp1673-19-78 07:02:00* Test Item Value Reference Range Interpretation Comments Potassium Level (test code = 2823-3) 4.2 3.5-5.1 [facility]anoChloride Tcuuc1727-11-28 07:02:00* Test Item Value Reference Range Interpretation Comments Chloride Level (test code = 2075-0) 111 98-107 H [facility] PlanoCarbon Dioxide Sqfhg5138-86-33 07:02:00* Test Item Value Reference Range Interpretation Comments Carbon Dioxide Level (test code = 2028-9) 24 -29 [facility] PlanoAnion Xcz8110-23-45 07:02:00* Test Item Value Reference Range Interpretation Comments Anion Gap (test code = 03607-6) 15.2 8-16 [facility]anoBlood Urea Gtbbzpde9311-62-16 07:02:00* Test Item Value Reference Range Interpretation Comments Blood Urea Nitrogen (test code = 3094-0) 15 7-26 [facility]anoCreatinine2019-04-19 07:02:00* Test Item Value Reference Range Interpretation Comments Creatinine (test code = 2160-0) 0.86 0.57-1.11 [facility]anoBUN/Creatinine Ipgkk0004-82-71 07:02:00* Test Item Value Reference Range Interpretation Comments BUN/Creatinine Ratio (test code = 3097-3) 17 - [facility] PlanoEstimat Glomerular Filtration Rate 2018-09-06 07:02:00* Test Item Value Reference Range Interpretation Comments Estimat Glomerular Filtration Rate (test code = 728115573) > 60 >60 Ranges were taken from the National Kidney Disease Education Program and the [facility] Foundation literature.Reference ranges:60 or greater: Eankhn70-55 ( for 3 consecutive months): Chronic kidney disease 15 or less: Kidney failureChildren's Medical Center PlanoGlucose Hirmb0109-07-46 07:02:00* Test Item Value Reference Range Interpretation Comments Glucose Level (test code = DOD3969) 126 74-118 H [facility] PlanoCalcium Gjces7150-30-22 07:02:00* Test Item Value Reference Range Interpretation Comments Calcium Level (test code = 20156-2) 8.5 8.4-10.2 [facility] PlanoMagnesium Ognuf6649-66-63 07:02:00* Test Item Value Reference Range Interpretation Comments Magnesium Level (test code = 29661-2) 2.1 1.3-2.1 [facility] Hospitaltress Test - Treadmill [id number] 18:42:00 [facility] [address] [address] Patient Name : CHAZ ABDI MR #: [id number] : 1935 Age/Sex: 83/F Adm Physician : BERTHA NAYLOR MD Admit Date : 09/03/18 Location : MED/SURG Room/Bed : [facility] REPORT: Myoview Stress Test DATE OF STUDY: 09/04/2018 14:40:00 7. PROCEDURE TITLE: Rest/stress isotope SPECT imaging with pharmacologic st ress and gated SPECT imaging. DESCRIPTION OF PROCEDURE: Pharmacologic str ess testing was performed with regadenoson per protocol. The heart rate was 65 beats per minute at rest increased to 88 beats per minute during the regadenos on infusion. The resting blood pressure was 137/60 mmHg and increased to 152/5 8 mmHg which is a normal response. The resting electrocardiogram demonstrat ed normal sinus rhythm. There were no ST-segment changes suggestive of myocard ial ischemia. Myocardial perfusion imaging was performed at rest following the injection of 30 mCi of tetrofosmin. At peak pharmacologic effect, the skye ent was injected with 33 mCi of tetrofosmin and gated post-stress tomographic i maging was performed. FINDINGS: The overall quality of study is good. Lef t ventricle was of normal size on the rest and stress studies. SPECT images de monstrate homogeneous tracer distribution throughout the myocardium. Gated SPE CT imaging reveals normal myocardial thickening and wall motion. The left vent ricular ejection fraction was calculated to be greater than 70%. IMPRESSIO N: Myocardial perfusion imaging is normal. Overall left ventricular systolic function was normal without regional wall motion abnormalities. __ Ashlee Marin MD ABS/MODL 18 :42:09 /[id number] Signature Date Dictated By: ASHLEE MARIN MD Transcribed By: MODL on 09/05/18 < Electronically signed by ASHLEE MARIN MD><<Signature on File>>09/13/18 1141 COPY TO: D-Dimer Quantitative (PE/DVT)2018-09-05 08:11:00* Test Item Value Reference Range Interpretation Comments D-Dimer Quantitative (PE/DVT) (test code = 06248-6) 213 0- 400 As with all in vitro diagnostic tests, the test results should be interpreted by the physician in conjunction with clinical findings and other test results.Test results are reported in NEW D-dimer units(ug/mLFEU).[facility]anoD-Dimer Quantitative (PE/DVT)2018-09-05 08:11:00* Test Item Value Reference Range Interpretation Comments D-Dimer Quantitative (PE/DVT) (test code = 74447-6) 213 0- 400 As with all in vitro diagnostic tests, the test results should be interpreted by the physician in conjunction with clinical findings and other test results.Test results are reported in NEW D-dimer units(ug/mLFEU).[facility] PlanoD-Dimer Quantitative (PE/DVT)2018-09-05 08:11:00* Test Item Value Reference Range Interpretation Comments D-Dimer Quantitative (PE/DVT) (test code = 71630-0) 213 0- 400 As with all in vitro diagnostic tests, the test results should be interpreted by the physician in conjunction with clinical findings and other test results.Test results are reported in NEW D-dimer units(ug/mLFEU).[facility]anoThyroid Stimulating Hormone (TSH)2018-09-05 06:30:00* Test Item Value Reference Range Interpretation Comments Thyroid Stimulating Hormone (TSH) (test code = 50602-6) 3.116 0.350-4.940 [facility]anoThyroid Stimulating Hormone (TSH) 2018-09-05 06:30:00* Test Item Value Reference Range Interpretation Comments Thyroid Stimulating Hormone (TSH) (test code = 21697-9) 3.116 0.350-4.940 [facility]anoThyroid Stimulating Hormone (TSH) 2018-09-05 06:30:00* Test Item Value Reference Range Interpretation Comments Thyroid Stimulating Hormone (TSH) (test code = 06269-3) 3.116 0.350-4.940 [facility] PlanoPhosphorus Eqqcj3077-37-05 06:16:00* Test Item Value Reference Range Interpretation Comments Phosphorus Level (test code = OFV5685) 3.6 2.3-4.7 [facility]2019-04-18 06:16:00* Test Item Value Reference Range Interpretation Comments Phosphorus Level (test code = EIP3900) 3.6 2.3-4.7 [facility]2019-04-18 06:16:00* Test Item Value Reference Range Interpretation Comments Phosphorus Level (test code = QXO2882) 3.6 2.3-4.7 [facility] PlanoCreatine Kinase NI8157-81-50 11:58:00* Test Item Value Reference Range Interpretation Comments Creatine Kinase MB (test code = 75029-2) 0.60 0-5.0 [facility]-09 11:58:00* Test Item Value Reference Range Interpretation Comments Troponin I (test code = RRG7650) 0.011 0-0.300 [facility] PlanoCreatine Kinase [id number] 11:58:00* Test Item Value Reference Range Interpretation Comments Creatine Kinase MB (test code = 70833-0) 0.60 0-5.0 [place] 37245019-04-17 11:58:00* Test Item Value Reference Range Interpretation Comments Troponin I (test code = HHH6797) 0.011 0-0.300 [facility]anoCreatine Kinase XE6915-33-19 11:58:00* Test Item Value Reference Range Interpretation Comments Creatine Kinase MB (test code = 17512-7) 0.60 0-5.0 [facility] PlanoTroponin [id number] 11:58:00* Test Item Value Reference Range Interpretation Comments Troponin I (test code = DGO8652) 0.011 0-0.300 [facility] PlanoCreatine Unixzo5886-20-87 11:48:00* Test Item Value Reference Range Interpretation Comments Creatine Kinase (test code = 2157-6) 19 29-168 L [facility] [facility] Fypaty1372-00-30 11:48:00* Test Item Value Reference Range Interpretation Comments Creatine Kinase (test code = 2157-6) 19 29-168 L [facility] Nmecaw8935-02-57 11:48:00* Test Item Value Reference Range Interpretation Comments Creatine Kinase (test code = 2157-6) 19 29-168 L [facility] Urtslejbs8938-60-72 06:54:00* Test Item Value Reference Range Interpretation Comments Total Bilirubin (test code = 1975-2) 0.4 0.2-1.2 [facility]anoAspartate Amino Transf (AST/SGOT) 2018-09-04 06:54:00* Test Item Value Reference Range Interpretation Comments Aspartate Amino Transf (AST/SGOT) (test code = Aspartate Amino Transf (AST/SGOT)) 12 5-34 [facility] Aminotransferase (ALT/SGPT) 2018-09-04 06:54:00* Test Item Value Reference Range Interpretation Comments Alanine Aminotransferase (ALT/SGPT) (test code = 1742-6) 12 0-55 [facility] Qqgvxrf0146-48-54 06:54:00* Test Item Value Reference Range Interpretation Comments Total Protein (test code = 2885-2) 5.8 6.5-8.1 L [facility]anoAlbumin2019-04-17 06:54:00* Test Item Value Reference Range Interpretation Comments Albumin (test code = 1751-7) 2.9 3.5-5.0 L [facility]anoGlobulin2019-04-17 06:54:00* Test Item Value Reference Range Interpretation Comments Globulin (test code = 29789-0) 2.9 2.3-3.5 [facility]/Globulin Gdwku6175-67-25 06:54:00 * Test Item Value Reference Range Interpretation Comments Albumin/Globulin Ratio (test code = 1759-0) 1.0 0.8-2.0 [facility]anoAlkaline Twfcxmxpitz9860-94-85 06:54:00* Test Item Value Reference Range Interpretation Comments Alkaline Phosphatase (test code = 6768-6) 49 40-150 [facility]anoTriglycerides Vffkp3092-01-15 06:54:00* Test Item Value Reference Range Interpretation Comments Triglycerides Level (test code = 2571-8) 166 0-149 H [facility]Cholesterol Qzraz7109-60-15 06:54:00* Test Item Value Reference Range Interpretation Comments Cholesterol Level (test code = 2093-3) 150 0-199 Less than 200 mg/dL Low Qykb304 - 239 mg/dL Borderline Bcoj839 m g/dl and greater High Risk [facility]anoLDL Vekgahkgcno4993-82-67 06:54:00* Test Item Value Reference Range Interpretation Comments LDL Cholesterol (test code = 2089-1) 73 60-130 [facility]anoHDL Xwszxdudihp7849-31-36 06:54:00* Test Item Value Reference Range Interpretation Comments HDL Cholesterol (test code = 2085-9) 44 40-60 [facility]/HDL Ymjnx2540-74-01 06:54:00 * Test Item Value Reference Range Interpretation Comments Cholesterol/HDL Ratio (test code = 9830-1) 3.4 3.0-3.6 [facility] Oxspcrips8188-30-79 06:54:00* Test Item Value Reference Range Interpretation Comments Total Bilirubin (test code = 1975-2) 0.4 0.2-1.2 [facility]anoAspartate Amino Transf (AST/SGOT) 2018-09-04 06:54:00* Test Item Value Reference Range Interpretation Comments Aspartate Amino Transf (AST/SGOT) (test code = Aspartate Amino Transf (AST/SGOT)) 12 5-34 [facility]Al[facility] Aminotransferase (ALT/SGPT) 2018-09-04 06:54:00* Test Item Value Reference Range Interpretation Comments Alanine Aminotransferase (ALT/SGPT) (test code = 1742-6) 12 0-55 [facility] Jyofzmh6034-39-68 06:54:00* Test Item Value Reference Range Interpretation Comments Total Protein (test code = 2885-2) 5.8 6.5-8.1 L [facility]anoAlbumin2019-04-17 06:54:00* Test Item Value Reference Range Interpretation Comments Albumin (test code = 1751-7) 2.9 3.5-5.0 L [facility]anoGlobulin2019-04-17 06:54:00* Test Item Value Reference Range Interpretation Comments Globulin (test code = 07951-0) 2.9 2.3-3.5 [facility]Album[facility]/Globulin Zyfdn3305-51-52 06:54:00 * Test Item Value Reference Range Interpretation Comments Albumin/Globulin Ratio (test code = 1759-0) 1.0 0.8-2.0 [facility]Alkaline Okslfwbjngd2480-05-93 06:54:00* Test Item Value Reference Range Interpretation Comments Alkaline Phosphatase (test code = 6768-6) 49 40-150 [facility]anoTriglycerides Nqtuz8894-92-69 06:54:00* Test Item Value Reference Range Interpretation Comments Triglycerides Level (test code = 2571-8) 166 0-149 H [facility]Cholesterol Jpftz4058-27-16 06:54:00* Test Item Value Reference Range Interpretation Comments Cholesterol Level (test code = 2093-3) 150 0-199 Less than 200 mg/dL Low Urpz140 - 239 mg/dL Borderline Drcp393 m g/dl and greater High Risk [facility]anoLDL Qdotihowahu3839-91-90 06:54:00* Test Item Value Reference Range Interpretation Comments LDL Cholesterol (test code = 2089-1) 73 60-130 [facility]anoHDL Hizubjfjsco3282-23-43 06:54:00* Test Item Value Reference Range Interpretation Comments HDL Cholesterol (test code = 2085-9) 44 40-60 [facility]Ch[facility]/HDL Fzrtx4982-68-01 06:54:00 * Test Item Value Reference Range Interpretation Comments Cholesterol/HDL Ratio (test code = 9830-1) 3.4 3.0-3.6 [facility] Nicicghtz9564-03-94 06:54:00* Test Item Value Reference Range Interpretation Comments Total Bilirubin (test code = 1975-2) 0.4 0.2-1.2 [facility]anoAspartate Amino Transf (AST/SGOT) 2018-09-04 06:54:00* Test Item Value Reference Range Interpretation Comments Aspartate Amino Transf (AST/SGOT) (test code = Aspartate Amino Transf (AST/SGOT)) 12 5-34 [facility]anoAl[facility] Aminotransferase (ALT/SGPT) 2018-09-04 06:54:00* Test Item Value Reference Range Interpretation Comments Alanine Aminotransferase (ALT/SGPT) (test code = 1742-6) 12 0-55 [facility] Tvqqvmr8756-92-37 06:54:00* Test Item Value Reference Range Interpretation Comments Total Protein (test code = 2885-2) 5.8 6.5-8.1 L [facility]anoAlbumin2019-04-17 06:54:00* Test Item Value Reference Range Interpretation Comments Albumin (test code = 1751-7) 2.9 3.5-5.0 L [facility]anoGlobulin2019-04-17 06:54:00* Test Item Value Reference Range Interpretation Comments Globulin (test code = 92482-6) 2.9 2.3-3.5 [facility]Album[facility]/Globulin Vrgjd3994-69-07 06:54:00 * Test Item Value Reference Range Interpretation Comments Albumin/Globulin Ratio (test code = 1759-0) 1.0 0.8-2.0 [facility]Alk[facility] Sazyzuvtlqv7659-47-25 06:54:00* Test Item Value Reference Range Interpretation Comments Alkaline Phosphatase (test code = 6768-6) 49 40-150 [facility]anoTriglycerides Jjniz6541-05-39 06:54:00* Test Item Value Reference Range Interpretation Comments Triglycerides Level (test code = 2571-8) 166 0-149 H [facility]anoCholesterol Dslnp3319-39-92 06:54:00* Test Item Value Reference Range Interpretation Comments Cholesterol Level (test code = 2093-3) 150 0-199 Less than 200 mg/dL Low Wliq061 - 239 mg/dL Borderline Ooqa092 m g/dl and greater High Risk [facility]anoLDL Rbeclbvvelr8870-17-76 06:54:00* Test Item Value Reference Range Interpretation Comments LDL Cholesterol (test code = 2089-1) 73 60-130 [facility]HDL Qhhsqgmsubh4458-22-79 06:54:00* Test Item Value Reference Range Interpretation Comments HDL Cholesterol (test code = 2085-9) 44 40-60 [facility]Ch[facility]HDL Olhii2398-65-84 06:54:00 * Test Item Value Reference Range Interpretation Comments Cholesterol/HDL Ratio (test code = 9830-1) 3.4 3.0-3.6 [facility])2018-09-03 20:06:00 [facility] [address] [address] Patient Name: CHAZ ABDI MR #: [id number] : 1935 Age/Sex: 83/F Req #: [id number] Adm Physician: Ordered by: SWAPNIL LOMBARDI MD Report #: [id number] Location: ER Room/Bed: Procedure: 0416-00 64 DX/CHEST SINGLE (PORTABLE) Exam Date: 09/03/18 Ex am Time: 1954 REPORT STATUS: Signed EXAMINATION: CHEST SINGLE (PORTABLE) INDICATION: Chest pain chest pain [id number] Y COMPARISON: 09/02/2018 F INDINGS: TUBES and LINES: None. LUNGS: Lungs are moderately inflated. M inimal patchy bibasilar atelectasis. There is no evidence of pneumonia or pulm onary edema. PLEURA: No pleural effusion or pneumothorax. HEART AND MEDIASTINUM: The cardiomediastinal silhouette is unremarkable. BONES A ND SOFT TISSUES: Age indeterminate mild loss of vertebral body height at T12. Status post median sternotomy. Levoconvex scoliosis of the thoracic spine. UPPER ABDOMEN: No free air under the diaphragm. IMPRESSION: Age inde terminate mild loss of vertebral body height at T12. Suggest correlation for p oint tenderness at this location. No evidence of displaced rib fracture or pneumothorax. Signed by: Dr. Maninder Xie M.D. on 09/03/2018 8:07 PM Dictated By: MANINDER XIE MD, MD 06 Transcribed By: NORMA on 09/03/182006 COPY TO: SWAPNIL TENORIO MD Urine Agjul0471-93-17 10:18:00* Test Item Value Reference Range Interpretation Comments Urine Blood (test code = 34876-4) NEGATIVE NEGATIVE --- 09/02/18 1017 ---BLOOD,URINE previously reported as: 4+ H [facility] TOQ9172-44-86 10:18:00* Test Item Value Reference Range Interpretation Comments Urine WBC (test code = 5821-4) NONE 0-5 [facility] PQW6632-80-87 10:18:00* Test Item Value Reference Range Interpretation Comments Urine RBC (test code = 08155-1) NONE 0-5 [facility] Qaokdtqr2945-15-29 10:18:00* Test Item Value Reference Range Interpretation Comments Urine Bacteria (test code = 74252-4) NONE NONE [facility] Epithelial Hfbff1491-69-44 10:18:00 * Test Item Value Reference Range Interpretation Comments Urine Epithelial Cells (test code = 33200-0) FEW NONE [facility] Tfbsb2170-62-14 10:18:00* Test Item Value Reference Range Interpretation Comments Urine Blood (test code = 01652-6) NEGATIVE NEGATIVE --- 09/02/18 1017 ---BLOOD,URINE previously reported as: 4+ H [facility] YWZ8819-35-00 10:18:00* Test Item Value Reference Range Interpretation Comments Urine WBC (test code = 5821-4) NONE 0-5 [facility] NJB3058-44-88 10:18:00* Test Item Value Reference Range Interpretation Comments Urine RBC (test code = 24909-8) NONE 0-5 [facility] Wdiqxnsa8096-34-03 10:18:00* Test Item Value Reference Range Interpretation Comments Urine Bacteria (test code = 77446-0) NONE NONE [facility] Epithelial Jxgei4413-33-82 10:18:00 * Test Item Value Reference Range Interpretation Comments Urine Epithelial Cells (test code = 54654-8) FEW NONE [facility] Yanwf1526-27-19 10:18:00* Test Item Value Reference Range Interpretation Comments Urine Blood (test code = 87623-1) NEGATIVE NEGATIVE --- 09/02/18 1017 ---BLOOD,URINE previously reported as: 4+ H [facility] NUV0670-09-37 10:18:00* Test Item Value Reference Range Interpretation Comments Urine WBC (test code = 5821-4) NONE 0-5 [facility] FOF8199-41-62 10:18:00* Test Item Value Reference Range Interpretation Comments Urine RBC (test code = 77616-3) NONE 0-5 [facility] Ozflwojy5668-61-99 10:18:00* Test Item Value Reference Range Interpretation Comments Urine Bacteria (test code = 53793-3) NONE NONE [facility] Epithelial Uxubl7479-07-92 10:18:00 * Test Item Value Reference Range Interpretation Comments Urine Epithelial Cells (test code = 24622-9) FEW NONE [facility] Amqbi9600-68-74 10:18:00* Test Item Value Reference Range Interpretation Comments Urine Blood (test code = 99470-9) NEGATIVE NEGATIVE --- 09/02/18 1017 ---BLOOD,URINE previously reported as: 4+ H [facility] KIP5386-34-49 10:18:00* Test Item Value Reference Range Interpretation Comments Urine WBC (test code = 5821-4) NONE 0-5 [facility] ALA7600-11-17 10:18:00* Test Item Value Reference Range Interpretation Comments Urine RBC (test code = 66042-9) NONE 0-5 [facility] Toldjqqb8802-07-52 10:18:00* Test Item Value Reference Range Interpretation Comments Urine Bacteria (test code = 31049-9) NONE NONE [facility] Epithelial Rugix1527-44-27 10:18:00 * Test Item Value Reference Range Interpretation Comments Urine Epithelial Cells (test code = 64444-5) FEW NONE [facility] JAVPQQZQ4121-31-41 10:12:00 [facility] [address] [address] Patient Name: CHAZ ABDI MR #: [id number] : 1935 Age/Sex: 83/F Req #: [id number] Adm Physician: Ordered by: HARJINDER CAMPOS MD Report #: [id number] Location: ER Room/Bed: Procedure: [id number] DX /SHOULDER RIGHT COMPLETE Exam Date: 09/02/18 Exam Ti me: 0987 REPORT STATUS: Signed R ight shoulder radiographs-2 views HISTORY: Status post fall. COMPARI SON: None FINDINGS: There is non well-corticated small bony fragment along the anterior/inferior humeral head and inferior glenoid rim. There is a well-corticated bony fragment adjacent to the posterior aspect of the glenoid. The glenohumeral alignment is maintained. Mild right acromion clavicular and glenohumeral joint degenerative changes. IMPRESSION: Small bony fragm ent along the anterior inferior humeral head/inferior glenoid rim, which may r eflect a minimally displaced fracture. Alternatively, this may reflect a loose body or osteophyte. Suggest CT for further evaluation given trauma. Well- corticated bone along the posterior aspect of the glenoid, suggestive of prior trauma. Signed by: Dr. Jennifer Clemons MD on 09/02/2018 10:23 AM Dictated By: JENNIFER CLEMONS MD 1023 Transcribed By: NORMA on 09/02/18 1023 COPY TO: HARJINDER CAMPOS MD Urine Rwbor4440-17-08 10:09:00* Test Item Value Reference Range Interpretation Comments Urine Color (test code = 5778-6) YELLOW YELLOW [facility] Vsaphrz0819-46-52 10:09:00* Test Item Value Reference Range Interpretation Comments Urine Clarity (test code = 54124-9) CLEAR CLEAR [facility] Specific Aeucxuz5498-07-40 10:09:00 * Test Item Value Reference Range Interpretation Comments Urine Specific [place] (test code = 5811-5) 1.015 1.010-1.02 5 [facility] hX9659-66-57 10:09:00* Test Item Value Reference Range Interpretation Comments Urine pH (test code = 72564-5) 6.5 5-7 [facility] Leukocyte Klqrpjnk6481-48-26 10:09:00* Test Item Value Reference Range Interpretation Comments Urine Leukocyte Esterase (test code = 5799-2) NEGATIVE NEGATIVE [facility] Skejvgk5696-07-72 10:09:00* Test Item Value Reference Range Interpretation Comments Urine Nitrite (test code = 73628-9) NEGATIVE NEGATIVE [facility] Rwtvtxt9057-31-70 10:09:00* Test Item Value Reference Range Interpretation Comments Urine Protein (test code = 5804-0) NEGATIVE NEGATIVE [facility] Glucose (UA)2018-09-02 10:09:00* Test Item Value Reference Range Interpretation Comments Urine Glucose (UA) (test code = 2349-9) NEGATIVE NEGATIVE [facility] Agcsobu8169-31-56 10:09:00* Test Item Value Reference Range Interpretation Comments Urine Ketones (test code = 12899-6) NEGATIVE NEGATIVE [facility] Jtroahmbeyqe6794-29-73 10:09:00* Test Item Value Reference Range Interpretation Comments Urine Urobilinogen (test code = 14610-5) 0.2 0.2-1 [facility] Ftxavjmgf9929-69-60 10:09:00* Test Item Value Reference Range Interpretation Comments Urine Bilirubin (test code = 1978-6) NEGATIVE NEGATIVE [facility] Sggrg5344-19-32 10:09:00* Test Item Value Reference Range Interpretation Comments Urine Color (test code = 5778-6) YELLOW YELLOW [facility] Ryqbmio0851-71-71 10:09:00* Test Item Value Reference Range Interpretation Comments Urine Clarity (test code = 80943-0) CLEAR CLEAR [facility] Specific Yktdsfg3015-29-52 10:09:00 * Test Item Value Reference Range Interpretation Comments Urine Specific [place] (test code = 5811-5) 1.015 1.010-1.02 5 [facility] lU4862-12-48 10:09:00* Test Item Value Reference Range Interpretation Comments Urine pH (test code = 43793-3) 6.5 5-7 [facility] Leukocyte Qmighuqu7703-74-57 10:09:00* Test Item Value Reference Range Interpretation Comments Urine Leukocyte Esterase (test code = 5799-2) NEGATIVE NEGATIVE [facility] Lejwneb0412-47-84 10:09:00* Test Item Value Reference Range Interpretation Comments Urine Nitrite (test code = 60569-5) NEGATIVE NEGATIVE [facility] Fhfucxf0513-33-94 10:09:00* Test Item Value Reference Range Interpretation Comments Urine Protein (test code = 5804-0) NEGATIVE NEGATIVE [facility] Glucose (UA)2018-09-02 10:09:00* Test Item Value Reference Range Interpretation Comments Urine Glucose (UA) (test code = 2349-9) NEGATIVE NEGATIVE [facility] Zmcanty8197-93-93 10:09:00* Test Item Value Reference Range Interpretation Comments Urine Ketones (test code = 23500-2) NEGATIVE NEGATIVE [facility] Agejlmonunkw1907-48-54 10:09:00* Test Item Value Reference Range Interpretation Comments Urine Urobilinogen (test code = 22476-1) 0.2 0.2-1 [facility] Frugomuwk8379-92-73 10:09:00* Test Item Value Reference Range Interpretation Comments Urine Bilirubin (test code = 1978-6) NEGATIVE NEGATIVE [facility] Genik6210-86-20 10:09:00* Test Item Value Reference Range Interpretation Comments Urine Color (test code = 5778-6) YELLOW YELLOW [facility] Rfvelkw8412-53-93 10:09:00* Test Item Value Reference Range Interpretation Comments Urine Clarity (test code = 98815-8) CLEAR CLEAR [facility] Specific Tnyftnr1923-16-32 10:09:00 * Test Item Value Reference Range Interpretation Comments Urine Specific [place] (test code = 5811-5) 1.015 1.010-1.02 5 [facility] mZ3411-89-18 10:09:00* Test Item Value Reference Range Interpretation Comments Urine pH (test code = 46345-1) 6.5 5-7 [facility] Leukocyte Kyhlhrpr8767-61-00 10:09:00* Test Item Value Reference Range Interpretation Comments Urine Leukocyte Esterase (test code = 5799-2) NEGATIVE NEGATIVE [facility] Pihfdbu1887-48-41 10:09:00* Test Item Value Reference Range Interpretation Comments Urine Nitrite (test code = 96370-6) NEGATIVE NEGATIVE [facility] Rcllzam7349-77-20 10:09:00* Test Item Value Reference Range Interpretation Comments Urine Protein (test code = 5804-0) NEGATIVE NEGATIVE [facility] Glucose (UA)2018-09-02 10:09:00* Test Item Value Reference Range Interpretation Comments Urine Glucose (UA) (test code = 2349-9) NEGATIVE NEGATIVE [facility] Itcwcrl8502-44-62 10:09:00* Test Item Value Reference Range Interpretation Comments Urine Ketones (test code = 13371-3) NEGATIVE NEGATIVE [facility] Lvtjksystlux3087-12-07 10:09:00* Test Item Value Reference Range Interpretation Comments Urine Urobilinogen (test code = 59342-8) 0.2 0.2-1 [facility] Rtdlcpmtr9047-10-99 10:09:00* Test Item Value Reference Range Interpretation Comments Urine Bilirubin (test code = 1978-6) NEGATIVE NEGATIVE [facility] Hnmvm5866-64-20 10:09:00* Test Item Value Reference Range Interpretation Comments Urine Color (test code = 5778-6) YELLOW YELLOW [facility] Krhnzik6692-72-73 10:09:00* Test Item Value Reference Range Interpretation Comments Urine Clarity (test code = 18988-2) CLEAR CLEAR [facility] Specific Ljlrtii8261-82-59 10:09:00 * Test Item Value Reference Range Interpretation Comments Urine Specific [place] (test code = 5811-5) 1.015 1.010-1.02 5 [facility] zJ8825-04-24 10:09:00* Test Item Value Reference Range Interpretation Comments Urine pH (test code = 13291-8) 6.5 5-7 [facility] Leukocyte Pwjrqzhy7097-55-73 10:09:00* Test Item Value Reference Range Interpretation Comments Urine Leukocyte Esterase (test code = 5799-2) NEGATIVE NEGATIVE [facility] Kgpafzh9747-02-56 10:09:00* Test Item Value Reference Range Interpretation Comments Urine Nitrite (test code = 95196-4) NEGATIVE NEGATIVE [facility] Zdyhywf5017-67-94 10:09:00* Test Item Value Reference Range Interpretation Comments Urine Protein (test code = 5804-0) NEGATIVE NEGATIVE [facility] Glucose (UA)2018-09-02 10:09:00* Test Item Value Reference Range Interpretation Comments Urine Glucose (UA) (test code = 2349-9) NEGATIVE NEGATIVE [facility] Zflnoef3497-46-53 10:09:00* Test Item Value Reference Range Interpretation Comments Urine Ketones (test code = 55336-4) NEGATIVE NEGATIVE [facility] Vxwyvwznzmuz1079-63-14 10:09:00* Test Item Value Reference Range Interpretation Comments Urine Urobilinogen (test code = 73487-0) 0.2 0.2-1 [facility] Guyscnkbx4187-49-19 10:09:00* Test Item Value Reference Range Interpretation Comments Urine Bilirubin (test code = 1978-6) NEGATIVE NEGATIVE [facility] 4AX5547-31-48 10:04:00 [facility] [address] [place] [address] Patient Name: CHAZ ABDI MR #: [id number] : 1935 Age/Sex: 83/F Req #: [id number] Adm Physician: Ordered by: HARJINDER CAMPOS MD Report #: [id number] Location: ER Room/Bed: Procedure: [id number] DX /SP LUMBAR, COMPLETE MIN 4VW Exam Date: 09/02/18 Tisha nash Time: 924 REPORT STATUS: Signed EXAM: Lumbar spine radiographs-5 views; right hip radiographs-2 views; AP r adiograph of the pelvis-1 view INDICATION: Status post fall. COMPARISO N: CT abdomen/pelvis 08/12/2017 and right hip radiographs 09/02/2018. FINDING S: Lumbar spine: BONES: Dextroconvex scoliosis of the lumbar spine. No a cute displaced fractures. Possible mild loss of vertebral body height at the T 12 level, as noted on same day chest radiograph. No evidence of lumbar spine v ertebral body height loss. DISCS: Moderate degenerative disc changes, mos t pronounced at L5-S1. JOINTS: Moderate facet degenerative changes, most pronounced at L5-S1. OTHER: Diffuse atherosclerotic vascular calcificat ions. Right Hip and Pelvis: Status post right total hip arthroplasty. The hardware appears intact. Alignment is unremarkable. No evidence of acute disp laced fracture. There are moderate left hip, bilateral sacroiliac, and pubic s ymphysis degenerative changes. Bowel gas partially obscures visualization of t he sacrum. Surgical clips project over the left inguinal region. IMPRESSI ON: Possible mild loss of vertebral body height at T12 level, as noted on same day chest radiograph. No evidence of acute displaced fracture in the lum bar spine, pelvis, or right hip. Status post right total hip arthroplasty with intact hardware and unremarkable alignment. Signed by: Dr. Jennifer smiley MD on 09/02/2018 10:12 AM Dictated By: JENNIFER CLEMONS MD Electronically S igned By: JENNIFER CLEMONS MD on 09/02/18 1012 Transcribed By: NORMA on 09/02/18 10 12 COPY TO: HARJINDER CAMPOS MD HIP RIGHT 2-3 VW (+/- PELVIS) 2018-09-02 10:04:00 [place] [address] Patient Name: CHAZ ABDI MR #: [id number] : 1935 Age/Sex: 83/F Req #: [id number] Adm Physician: Ordered by: HARJINDER CAMPOS MD Report #: [id number] Location: ER Room/Bed: Procedure: [id number] DX /HIP RIGHT 2-3 VW (+/- PELVIS) Exam Date: Exam Time : REPORT STATUS: Signed EXAM: L umbar spine radiographs-5 views; right hip radiographs-2 views; AP radiograph of the pelvis-1 view INDICATION: Status post fall. COMPARISON: CT abdo men/pelvis 08/12/2017 and right hip radiographs 09/02/2018. FINDINGS: Lumba r spine: BONES: Dextroconvex scoliosis of the lumbar spine. No acute displ aced fractures. Possible mild loss of vertebral body height at the T12 level, as noted on same day chest radiograph. No evidence of lumbar spine vertebral b britney height loss. DISCS: Moderate degenerative disc changes, most pronounc ed at L5-S1. JOINTS: Moderate facet degenerative changes, most pronounce d at L5-S1. OTHER: Diffuse atherosclerotic vascular calcifications. Right Hip and Pelvis: Status post right total hip arthroplasty. The hardware appears intact. Alignment is unremarkable. No evidence of acute displaced frac ture. There are moderate left hip, bilateral sacroiliac, and pubic symphysis d egenerative changes. Bowel gas partially obscures visualization of the sacrum. Surgical clips project over the left inguinal region. IMPRESSION: Poss ible mild loss of vertebral body height at T12 level, as noted on same day ricardo st radiograph. No evidence of acute displaced fracture in the lumbar spine, pelvis, or right hip. Status post right total hip arthroplasty with inta ct hardware and unremarkable alignment. Signed by: Dr. Jennifer Clemons MD on 09/02/2018 10:12 AM Dictated By: JENNIFER CLEMONS MD 1012 Transcribed By: NORMA on 09/02/18 1012 C OPY TO: HARJINDER CAMPOS MD CHEST 2 [id number] 09:49:00 [place] [address] Patient Name: CHAZ ABDI MR #: [id number] : 1935 Age/Sex: 83/F Req #: [id number] Adm Physician: Ordered by: HARJINDER CAMPOS MD Report #: [id number] Location: ER Room/Bed: Procedure: [id number] DX /CHEST 2 VIEWS Exam Date: 09/02/18 Exam Time: 924 REPORT STATUS: Signed EXAMINATION: CHEST 2 VIEWS INDICATION: Status post fall onto right chest. CO MPARISON: CT abdomen/pelvis 08/12/2017 and chest radiograph 12/03/2015. FINDINGS: The lateral radiograph is limited secondary to motion and portable technique. TUBES and LINES: None. LUNGS: Lungs are moderately infla ed. Minimal patchy bibasilar atelectasis. There is no evidence of pneumonia o r pulmonary edema. PLEURA: No pleural effusion or pneumothorax. HEAR T AND MEDIASTINUM: The cardiomediastinal silhouette is unremarkable. B ONES AND SOFT TISSUES: Age indeterminate mild loss of vertebral body height at T12. Status post median sternotomy. Levoconvex scoliosis of the thoracic spine. UPPER ABDOMEN: No free air under the diaphragm. IMPRESSION: Age indeterminate mild loss of vertebral body height at T12. Suggest correlation for point tenderness at this location. No evidence of displaced rib fract ure or pneumothorax. Signed by: Dr. Jennifer Clemons MD on 09/02/2018 9:54 AM Dictated By: JENNIFER CLEMONS MD 3 COPY TO: DHIRAJ CAMPOS MD US ABDOMEN [id number] 09:50:00 [place] [address] Patient Name: CHAZ ABDI MR #: [id number] : 1935 Age/Sex: 83/F Req #: [id number] Adm Physician: Ordered by: ROGERIO OLIVARES MD Report #: [id number] Location: US Room/Bed: Procedure: [id number] US/U S ABDOMEN COMPLETE Exam Date: 07/09/18 Exam Time: 08 50 REPORT STATUS: Signed EXAM: US ABDOMEN COMPLETE DATE: 07/09/2018 8:01 AM INDICATION: Hepatitis C COMPARISON: CT abdomen/pelvis, 08/12/2017 FINDINGS: Grayscale and color flow Doppler ultrasound of the abdomen was performed. Liver: 15.3 cm sp an. Normal parenchymal echogenicity. No intrahepatic mass or bile duct dilatat ion. Main portal vein 0.9 cm, nondilated, normal hepatopetal flow. Biliar y: Surgical absence of the gallbladder. Common bile duct 0.7 cm, normal. Sp jayden: 8.4 cm span, no splenomegaly. Pancreas: Partially obscured. Visualize d portions appear normal with no duct dilatation or mass. Right kidney: 1 0.5 x 4.3 x 4.3 cm. No hydronephrosis or contour deforming mass. Normal cortic al echogenicity. Left kidney: 10.9 x 4.8 x 4.6 cm. No hydronephrosis or con tour deforming mass. Left kidney is partially obscured, cortical echogenicity is normal in well-visualized areas. Vessels: Visualized portions of aorta and IVC unremarkable. Ascites: None IMPRESSION: 1. No sonographic evidence for acute abdominal pathology. 2. Surgical absence of the gallbl adder with no dilatation of the biliary tree. 3. Normal echogenicity of the liver with no hepatomegaly. Normal diameter and flow of the portal vein. Signed by: Dr. Harjinder Giron M.D. on 07/09/2018 9:55 AM Dictated By: RENAN GIRON MD 4 [place] scribed By: NORMA on 07/09/18954 COPY TO: ROGERIO OLIVARES MD Urine [id number] 07:11:00* Test Item Value Reference Range Interpretation Comments Urine Culture (test code = 630-4) Organism[facility]ERICHIA COLI [facility] Xovramf2749-83-83 07:11:00* Test Item Value Reference Range Interpretation Comments Urine Culture (test code = 630-4) Organism: ESCHERICHIA COLI [facility] Uxeyftb9353-84-34 07:11:00* Test Item Value Reference Range Interpretation Comments Urine Culture (test code = 630-4) Organism: ESCHERICHIA COLI [facility] Ovucr4737-73-90 11:00:00* Test Item Value Reference Range Interpretation Comments Urine Color (test code = 5778-6) YELLOW YELLOW [facility] Vozwumb0671-75-86 11:00:00* Test Item Value Reference Range Interpretation Comments Urine Clarity (test code = 31571-4) HAZY CLEAR [facility] Specific Xxzbaxs0385-67-25 11:00:00 * Test Item Value Reference Range Interpretation Comments Urine Specific [place] (test code = 5811-5) 1.010 1.010-1.02 5 [facility] zE6474-72-23 11:00:00* Test Item Value Reference Range Interpretation Comments Urine pH (test code = 26116-9) 8 5-7 H [facility] Leukocyte Cjohzsyb8809-33-48 11:00:00* Test Item Value Reference Range Interpretation Comments Urine Leukocyte Esterase (test code = 5799-2) 1+ NEGATIVE H [facility] Txymcsz5622-66-06 11:00:00* Test Item Value Reference Range Interpretation Comments Urine Nitrite (test code = 37291-3) POSITIVE NEGATIVE H [facility] Olgqeid2209-23-50 11:00:00* Test Item Value Reference Range Interpretation Comments Urine Protein (test code = 5804-0) 1+ NEGATIVE H [facility] Glucose (UA)2017-12-09 11:00:00* Test Item Value Reference Range Interpretation Comments Urine Glucose (UA) (test code = 2349-9) NEGATIVE NEGATIVE [facility] Hwzgjrp5151-76-38 11:00:00* Test Item Value Reference Range Interpretation Comments Urine Ketones (test code = 58093-5) NEGATIVE NEGATIVE [facility] Nirfzawbrsnz2992-59-83 11:00:00* Test Item Value Reference Range Interpretation Comments Urine Urobilinogen (test code = 54327-9) 0.2 0.2-1 [facility] Wjuvxmvui3988-12-31 11:00:00* Test Item Value Reference Range Interpretation Comments Urine Bilirubin (test code = 1978-6) NEGATIVE NEGATIVE [facility] Hkqju2525-53-72 11:00:00* Test Item Value Reference Range Interpretation Comments Urine Blood (test code = 41810-0) NEGATIVE NEGATIVE [facility] MGI1501-03-34 11:00:00* Test Item Value Reference Range Interpretation Comments Urine WBC (test code = 5821-4) 21-50 0-5 H [facility] ZSE7039-61-64 11:00:00* Test Item Value Reference Range Interpretation Comments Urine RBC (test code = 45405-2) 0-5 0-5 [facility] Bgzanwfz6486-47-29 11:00:00* Test Item Value Reference Range Interpretation Comments Urine Bacteria (test code = 69945-8) MODERATE NONE H [facility] Epithelial Eriwx3887-83-65 11:00:00 * Test Item Value Reference Range Interpretation Comments Urine Epithelial Cells (test code = 04221-2) RARE NONE [facility] Amorphous Ozpvozbn5774-03-83 11:00:00* Test Item Value Reference Range Interpretation Comments Urine Amorphous Sediment (test code = 8246-1) FEW FEW [facility] Am[facility] Uwldtygf5260-27-76 11:00:00* Test Item Value Reference Range Interpretation Comments Urine Amorphous Sediment (test code = 8246-1) FEW FEW [facility] Amorphous Ohppzeas5831-17-22 11:00:00* Test Item Value Reference Range Interpretation Comments Urine Amorphous Sediment (test code = 8246-1) FEW FEW [facility] Am[facility] Qyzrvway8329-13-60 11:00:00* Test Item Value Reference Range Interpretation Comments Urine Amorphous Sediment (test code = 8246-1) FEW FEW [facility] Pbgbs2362-27-48 20:18:00* Test Item Value Reference Range Interpretation Comments Urine Color (test code = 5778-6) YELLOW YELLOW [facility] Ljpxcqv3127-48-64 20:18:00* Test Item Value Reference Range Interpretation Comments Urine Clarity (test code = 57759-7) CLEAR CLEAR [facility] Specific Vidbmvh2426-82-66 20:18:00 * Test Item Value Reference Range Interpretation Comments Urine Specific [place] (test code = 5811-5) 1.020 1.010-1.02 5 [facility] zP1875-29-08 20:18:00* Test Item Value Reference Range Interpretation Comments Urine pH (test code = 14174-5) 8 5-7 H [facility] Leukocyte Glwpkqqc5459-55-95 20:18:00* Test Item Value Reference Range Interpretation Comments Urine Leukocyte Esterase (test code = 5799-2) NEGATIVE NEGATIVE [facility] Sswklqa2237-02-89 20:18:00* Test Item Value Reference Range Interpretation Comments Urine Nitrite (test code = 77883-3) NEGATIVE NEGATIVE [facility] Jphyizt7276-93-13 20:18:00* Test Item Value Reference Range Interpretation Comments Urine Protein (test code = 5804-0) NEGATIVE NEGATIVE [facility] Glucose (UA)2017-08-12 20:18:00* Test Item Value Reference Range Interpretation Comments Urine Glucose (UA) (test code = 2349-9) NEGATIVE NEGATIVE [facility] Yqojyca1910-19-51 20:18:00* Test Item Value Reference Range Interpretation Comments Urine Ketones (test code = 92959-3) NEGATIVE NEGATIVE [facility] Oswadbjtyogk4075-05-80 20:18:00* Test Item Value Reference Range Interpretation Comments Urine Urobilinogen (test code = 02410-4) 0.2 0.2-1 [facility] Fjofalbhd5429-03-54 20:18:00* Test Item Value Reference Range Interpretation Comments Urine Bilirubin (test code = 1978-6) NEGATIVE NEGATIVE [facility] Kuruq2625-02-68 20:18:00* Test Item Value Reference Range Interpretation Comments Urine Blood (test code = 77522-9) NEGATIVE [facility]GATIVE [facility] Xweve9079[facility]18-91 19:21:00* Test Item Value Reference Range Interpretation Comments Sodium Level (test code = 2951-2) 138 136-145 [facility]Pot[facility] Eghew3273-78-36 19:21:00* Test Item Value Reference Range Interpretation Comments Potassium Level (test code = 2823-3) 4.2 3.5-5.1 [facility]anoChloride Rwzhk9226-43-08 19:21:00* Test Item Value Reference Range Interpretation Comments Chloride Level (test code = 2075-0) 100 98-107 [facility]ano[facility] Dioxide Lrsnd9949-27-13 19:21:00* Test Item Value Reference Range Interpretation Comments Carbon Dioxide Level (test code = 2028-9) 27 22-29 [facility]anoAnion Bwa4982-35-09 19:21:00* Test Item Value Reference Range Interpretation Comments Anion Gap (test code = 55765-9) 15.2 8-16 [facility] Urea Yjvidvkq3960-77-76 19:21:00* Test Item Value Reference Range Interpretation Comments Blood Urea Nitrogen (test code = 3094-0) 27 7-26 H [facility]anoCreatinine2018-03-25 19:21:00* Test Item Value Reference Range Interpretation Comments Creatinine (test code = 2160-0) 1.23 0.57-1.11 H [facility]ano[facility]/Creatinine Bduld3609-33-28 19:21:00* Test Item Value Reference Range Interpretation Comments BUN/Creatinine Ratio (test code = 3097-3) 22 6-25 [facility]anoEstimat Glomerular Filtration Rate 2017-08-12 19:21:00* Test Item Value Reference Range Interpretation Comments Estimat Glomerular Filtration Rate (test code = 38171-7) 42 >60 L Ranges were taken from the National Kidney Disease Education Program and the [facility] [employer] literature.Reference ranges:60 or greater: Dekpuw98-56 ( for 3 consecutive months): Chronic kidney disease 15 or less: Kidney failureCHI Saint Mark'S Medical CenterGlucose Jpevp5518-93-64 19:21:00* Test Item Value Reference Range Interpretation Comments Glucose Level (test code = PXD6880) 148 74-118 H [facility]anoCalcium Zozon8070-73-72 19:21:00* Test Item Value Reference Range Interpretation Comments Calcium Level (test code = 47908-9) 9.3 8.4-10.2 [facility]anoMagnesium Orucx1866-13-90 19:21:00* Test Item Value Reference Range Interpretation Comments Magnesium Level (test code = 80384-4) 1.9 1.3-2.1 [facility]anoTotal Lgkfywuxq8145-10-16 19:21:00* Test Item Value Reference Range Interpretation Comments Total Bilirubin (test code = 1975-2) 0.3 0.2-1.2 [facility]anoAspartate Amino Transf (AST/SGOT) 2017-08-12 19:21:00* Test Item Value Reference Range Interpretation Comments Aspartate Amino Transf (AST/SGOT) (test code = Aspartate Amino Transf (AST/SGOT)) 14 5-34 [facility]anoAlanine Aminotransferase (ALT/SGPT) 2017-08-12 19:21:00* Test Item Value Reference Range Interpretation Comments Alanine Aminotransferase (ALT/SGPT) (test code = 1742-6) 15 0-55 [facility] Yempulg1176-03-61 19:21:00* Test Item Value Reference Range Interpretation Comments Total Protein (test code = 2885-2) 7.4 6.5-8.1 [facility]anoAlbumin2018-03-25 19:21:00* Test Item Value Reference Range Interpretation Comments Albumin (test code = 1751-7) 4.0 3.5-5.0 [facility]anoGlobulin2018-03-25 19:21:00* Test Item Value Reference Range Interpretation Comments Globulin (test code = 56262-2) 3.4 2.3-3.5 [facility]anoAlbumin/Globulin Bphlx5094-10-12 19:21:00 * Test Item Value Reference Range Interpretation Comments Albumin/Globulin Ratio (test code = 1759-0) 1.2 0.8-2.0 [facility]anoAlkaline Jdqbqdfzvac9383-75-17 19:21:00* Test Item Value Reference Range Interpretation Comments Alkaline Phosphatase (test code = 6768-6) 57 40-150 [facility] PlanoLipase2018-03-25 19:21:00* Test Item Value Reference Range Interpretation Comments Lipase (test code = 3040-3) -4 8-78 L [facility] Efond7914-38-07 19:21:00* Test Item Value Reference Range Interpretation Comments Sodium Level (test code = 2951-2) 138 136-145 [facility]anoPotassium Ublgj1485-73-52 19:21:00* Test Item Value Reference Range Interpretation Comments Potassium Level (test code = 2823-3) 4.2 3.5-5.1 [facility]anoChloride Wfuyz4236-62-03 19:21:00* Test Item Value Reference Range Interpretation Comments Chloride Level (test code = 2075-0) 100 98-107 [facility]anoCarbon Dioxide Iiqvv7916-72-80 19:21:00* Test Item Value Reference Range Interpretation Comments Carbon Dioxide Level (test code = 2028-9) 27 22-29 [facility]anoAnion Gxj7233-07-57 19:21:00* Test Item Value Reference Range Interpretation Comments Anion Gap (test code = 75239-8) 15.2 8-16 [facility]anoBlood Urea Gbamrboy6771-50-93 19:21:00* Test Item Value Reference Range Interpretation Comments Blood Urea Nitrogen (test code = 3094-0) 27 7-26 H [facility] PlanoCreatinine2018-03-25 19:21:00* Test Item Value Reference Range Interpretation Comments Creatinine (test code = 2160-0) 1.23 0.57-1.11 H [facility]anoBUN/Creatinine Hwzde6982-76-78 19:21:00* Test Item Value Reference Range Interpretation Comments BUN/Creatinine Ratio (test code = 3097-3) 22 11-12 [facility]anoEstimat Glomerular Filtration Rate 2017-08-12 19:21:00* Test Item Value Reference Range Interpretation Comments Estimat Glomerular Filtration Rate (test code = 81578-5) 42 >60 L Ranges were taken from the National Kidney Disease Education Program and the [facility] literature.Reference ranges:60 or greater: Muaypt61-95 ( for 3 consecutive months): Chronic kidney disease 15 or less: Kidney failureChildren's Medical Center PlanoGlucose Fltoz7036-82-57 19:21:00* Test Item Value Reference Range Interpretation Comments Glucose Level (test code = FST3463) 148 74-118 H [facility]anoCalcium Ylkjg8309-14-96 19:21:00* Test Item Value Reference Range Interpretation Comments Calcium Level (test code = 50448-4) 9.3 8.4-10.2 [facility]anoMagnesium Cmbtj1241-26-62 19:21:00* Test Item Value Reference Range Interpretation Comments Magnesium Level (test code = 54581-1) 1.9 1.3-2.1 [facility]anoTotal Irzeqmeug5262-73-16 19:21:00* Test Item Value Reference Range Interpretation Comments Total Bilirubin (test code = 1975-2) 0.3 0.2-1.2 [facility] PlanoAspartate Amino Transf (AST/SGOT) 2017-08-12 19:21:00* Test Item Value Reference Range Interpretation Comments Aspartate Amino Transf (AST/SGOT) (test code = Aspartate Amino Transf (AST/SGOT)) 14 5-34 [facility]anoAlanine Aminotransferase (ALT/SGPT) 2017-08-12 19:21:00* Test Item Value Reference Range Interpretation Comments Alanine Aminotransferase (ALT/SGPT) (test code = 1742-6) 15 0-55 [facility]anoTotal Hjuoagv5436-66-24 19:21:00* Test Item Value Reference Range Interpretation Comments Total Protein (test code = 2885-2) 7.4 6.5-8.1 [facility]anoAlbumin2018-03-25 19:21:00* Test Item Value Reference Range Interpretation Comments Albumin (test code = 1751-7) 4.0 3.5-5.0 [facility]anoGlobulin2018-03-25 19:21:00* Test Item Value Reference Range Interpretation Comments Globulin (test code = 11656-0) 3.4 2.3-3.5 [facility]anoAlbumin/Globulin Asbmb8854-84-93 19:21:00 * Test Item Value Reference Range Interpretation Comments Albumin/Globulin Ratio (test code = 1759-0) 1.2 0.8-2.0 [facility]anoAlkaline Wltqlyowpmg9224-22-05 19:21:00* Test Item Value Reference Range Interpretation Comments Alkaline Phosphatase (test code = 6768-6) 57 40-150 [facility]anoLipase2018-03-25 19:21:00* Test Item Value Reference Range Interpretation Comments Lipase (test code = 3040-3) -4 8-78 L [facility] PlanoWhite Blood Moypu6996-88-43 19:10:00* Test Item Value Reference Range Interpretation Comments White Blood Count (test code = 6690-2) 8.31 4.8-10.8 [facility]anoRed Blood Oqguw2436-35-13 19:10:00* Test Item Value Reference Range Interpretation Comments Red Blood Count (test code = 789-8) 4.67 3.6-5.1 [facility]anoHemoglobin2018-03-25 19:10:00* Test Item Value Reference Range Interpretation Comments Hemoglobin (test code = 17710-6) 13.5 12.0-16.0 [facility]anoHematocrit2018-03-25 19:10:00* Test Item Value Reference Range Interpretation Comments Hematocrit (test code = 4544-3) 40.5 34.2-44.1 [facility]anoMean Corpuscular Pxcxks1977-04-95 19:10:00* Test Item Value Reference Range Interpretation Comments Mean Corpuscular Volume (test code = 787-2) 86.7 81-99 [facility]anoMean Corpuscular Gmbqrinzrd0227-55-32 19:10:00* Test Item Value Reference Range Interpretation Comments Mean Corpuscular Hemoglobin (test code = 785-6) 28.9 28-32 [facility]anoMean Corpuscular Hemoglobin Concent 2017-08-12 19:10:00* Test Item Value Reference Range Interpretation Comments Mean Corpuscular Hemoglobin Concent (test code = 786-4) 33.3 31-35 [facility]anoRed Cell Distribution Sidmh8766-33-93 19:10:00* Test Item Value Reference Range Interpretation Comments Red Cell Distribution Width (test code = 13235-9) 14.2 11.7 -14.4 [facility] PlanoPlatelet Wycss8541-90-81 19:10:00* Test Item Value Reference Range Interpretation Comments Platelet Count (test code = 777-3) 258 140-360 [facility]anoNeutrophils (%) (Auto)2017-08-12 19:10:00 * Test Item Value Reference Range Interpretation Comments Neutrophils (%) (Auto) (test code = 18184-1) 74.0 38.7-80.0 [facility]anoLymphocytes (%) (Auto)2017-08-12 19:10:00 * Test Item Value Reference Range Interpretation Comments Lymphocytes (%) (Auto) (test code = 736-9) 18.4 18.0-39.1 [facility]anoMonocytes (%) (Auto)2017-08-12 19:10:00* Test Item Value Reference Range Interpretation Comments Monocytes (%) (Auto) (test code = 5905-5) 5.9 4.4-11.3 [facility]anoEosinophils (%) (Auto)2017-08-12 19:10:00 * Test Item Value Reference Range Interpretation Comments Eosinophils (%) (Auto) (test code = 713-8) 0.7 0.0-6.0 [facility]anoBasophils (%) (Auto)2017-08-12 19:10:00* Test Item Value Reference Range Interpretation Comments Basophils (%) (Auto) (test code = 706-2) 0.5 0.0-1.0 [facility]anoIM GRANULOCYTES %2017-08-12 19:10:00* Test Item Value Reference Range Interpretation Comments IM GRANULOCYTES % (test code = IM GRANULOCYTES %) 0.5 0.0- 1.0 [facility]anoNeutrophils # (Auto)2017-08-12 19:10:00* Test Item Value Reference Range Interpretation Comments Neutrophils # (Auto) (test code = 751-8) 6.2 2.1-6.9 [facility]anoLymphocytes # (Auto)2017-08-12 19:10:00* Test Item Value Reference Range Interpretation Comments Lymphocytes # (Auto) (test code = 86877-9) 1.5 1.0-3.2 [facility]anoMonocytes # (Auto)2017-08-12 19:10:00* Test Item Value Reference Range Interpretation Comments Monocytes # (Auto) (test code = 742-7) 0.5 0.2-0.8 [facility]anoEosinophils # (Auto)2017-08-12 19:10:00* Test Item Value Reference Range Interpretation Comments Eosinophils # (Auto) (test code = 711-2) 0.1 0.0-0.4 [facility]anoBasophils # (Auto)2017-08-12 19:10:00* Test Item Value Reference Range Interpretation Comments Basophils # (Auto) (test code = 704-7) 0.0 0.0-0.1 [facility] PlanoAbsolute Immature Granulocyte (auto 2017-08-12 19:10:00* Test Item Value Reference Range Interpretation Comments Absolute Immature Granulocyte (auto (ever t code = Absolute Immature Granulocyte (auto) 0.04 0-0.1 [facility]anoWhite Blood Owtff4286-94-63 19:10:00* Test Item Value Reference Range Interpretation Comments White Blood Count (test code = 6690-2) 8.31 4.8-10.8 [facility]anoRed Blood Adpej4134-22-49 19:10:00* Test Item Value Reference Range Interpretation Comments Red Blood Count (test code = 789-8) 4.67 3.6-5.1 [facility]anoHemoglobin2018-03-25 19:10:00* Test Item Value Reference Range Interpretation Comments Hemoglobin (test code = 51001-9) 13.5 12.0-16.0 [facility]anoHematocrit2018-03-25 19:10:00* Test Item Value Reference Range Interpretation Comments Hematocrit (test code = 4544-3) 40.5 34.2-44.1 [facility]anoMean Corpuscular Ovvffy8192-17-01 19:10:00* Test Item Value Reference Range Interpretation Comments Mean Corpuscular Volume (test code = 787-2) 86.7 81-99 [facility]Mean Corpuscular Vkpitimgot5662-59-51 19:10:00* Test Item Value Reference Range Interpretation Comments Mean Corpuscular Hemoglobin (test code = 785-6) 28.9 28-32 [facility]anoMean Corpuscular Hemoglobin Concent 2017-08-12 19:10:00* Test Item Value Reference Range Interpretation Comments Mean Corpuscular Hemoglobin Concent (test code = 786-4) 33.3 31-35 [facility]anoRed Cell Distribution Lidkk6752-38-87 19:10:00* Test Item Value Reference Range Interpretation Comments Red Cell Distribution Width (test code = 29438-8) 14.2 11.7 -14.4 [facility] PlanoPlatelet Jhfwt9323-01-40 19:10:00* Test Item Value Reference Range Interpretation Comments Platelet Count (test code = 777-3) 258 140-360 [facility]Neutroph[facility] (Auto)2017-08-12 19:10:00 * Test Item Value Reference Range Interpretation Comments Neutrophils (%) (Auto) (test code = 46379-8) 74.0 38.7-80.0 [facility]anoLymphocytes (%) (Auto)2017-08-12 19:10:00 * Test Item Value Reference Range Interpretation Comments Lymphocytes (%) (Auto) (test code = 736-9) 18.4 18.0-39.1 [facility]ocytes (%) (Auto)2017-08-12 19:10:00* Test Item Value Reference Range Interpretation Comments Monocytes (%) (Auto) (test code = 5905-5) 5.9 4.4-11.3 [facility]osin[facility] (%) (Auto)2017-08-12 19:10:00 * Test Item Value Reference Range Interpretation Comments Eosinophils (%) (Auto) (test code = 713-8) 0.7 0.0-6.0 [facility] (%) (Auto)2017-08-12 19:10:00* Test Item Value Reference Range Interpretation Comments Basophils (%) (Auto) (test code = 706-2) 0.5 0.0-1.0 [facility]IM [facility]ULOC[facility]TES %2017-08-12 19:10:00* Test Item Value Reference Range Interpretation Comments IM GRANULOCYTES % (test code = IM GRANULOCYTES %) 0.5 0.0- 1.0 [facility]anoNeutrophils # (Auto)2017-08-12 19:10:00* Test Item Value Reference Range Interpretation Comments Neutrophils # (Auto) (test code = 751-8) 6.2 2.1-6.9 [facility]anoLymphocytes # (Auto)2017-08-12 19:10:00* Test Item Value Reference Range Interpretation Comments Lymphocytes # (Auto) (test code = 26636-0) 1.5 1.0-3.2 [facility]ocytes # (Auto)2017-08-12 19:10:00* Test Item Value Reference Range Interpretation Comments Monocytes # (Auto) (test code = 742-7) 0.5 0.2-0.8 [facility]Eosinophils # (Auto)2017-08-12 19:10:00* Test Item Value Reference Range Interpretation Comments Eosinophils # (Auto) (test code = 711-2) 0.1 0.0-0.4 [facility]ophils # (Auto)2017-08-12 19:10:00* Test Item Value Reference Range Interpretation Comments Basophils # (Auto) (test code = 704-7) 0.0 0.0-0.1 [facility]anoAbsolute Immature Granulocyte (auto 2017-08-12 19:10:00* Test Item Value Reference Range Interpretation Comments Absolute Immature Granulocyte (auto (ever t code = Absolute Immature Granulocyte (auto) 0.04 0-0.1 [facility]CT [facility] [address] Patient Name: CHAZ ABDI MR #: [id number] : 1935 Age/Sex: 82/F Req #: [id number] Adm Physician: Ordered by: NU SANABRIA MD, MD Report #: [id number] Location: ER Room/Bed: Procedure: [id number] CT/CT ABDOMEN/PELVIS WO Ex am Date: 08/12/17 Exam Time: 1835 REPORT STATUS : Signed EXAM: CT ABDOMEN AND PELVIS without IV CONTRAST INDICATION: Abdom en and flank pain COMPARISON: CT abdomen and pelvis with IV contrast July TECHNIQUE: The abdomen and pelvis were scanned using a [facility] Coronal and sagittal reformations were obtained. Renal stone pr otocol performed. IV Contrast: None Oral Contrast: None CTDIvol has been reviewed. It is below the limits set by the Radiation Protocol Committee (RPC ). FINDINGS: LOWER THORAX: Ground glass opacities and interstitial thicke lexi could be related to edema or chronic changes. LIVER: No masses REGAN IARY: Cholecystectomy. No ductal dilation. SPLEEN: No masses PANCREAS: No masses ADRENALS: No nodules RIGHT KIDNEY: Punctate nonobstructing sto ne in the inferior pole. No hydronephrosis. No ureteral stones. LEFT KID DEIRDRE: Punctate (1 mm) stone at the left ureterovesicular junction resulting in minimal hydroureteronephrosis and perinephric fat stranding. GI TRACT: No w all thickening or obstruction. Small sliding hiatal hernia. VESSELS: Moder ate atherosclerotic changes of the abdominal aorta without aneurysm. 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 PERITONEUM/RETROP ERITONEUM: No free air or fluid LYMPH NODES: No lymphadenopathy REPRODUCT YAMILET ORGANS: Not visualized BLADDER: Normal SOFT TISSUES: Normal BONES: No suspicious bone lesions. IMPRESSION: Punctate stone at the left ureter ovesicular junction resulting in minimal hydroureteronephrosis and perinephric fat stranding. Signed by: Dr. Chelly Amato M.D. on 08/12/2017 7:29 PM Dictated By: CHELLY AMATO MD 28 Transcribed By: NORMA on 08/12/171928 COPY TO: NU NEVAREZ
--- NOTE | 2020-04-01 04:41 | Emergency Department Note ---
History of Present Illnes History of Present Illness Chief Complaint: General Medicine Complaints History of Present Illness This is a 84 year old female arrived to the ED with complaints of left hip pain, denies any trauma to that side Chief Complaint Comment 84 Y/O FEMALE PT AAOX3 PRESENTS TO THE ER C/O LT HIP PAIN FOR THE PAST WEEK; PT STATES X3 WEEKS AGO SHE FELL DISLOCATING RT HIP AND PUT RT HIP BACK INTO PLACE; PT STATES FOR THE PAST WEEK HER LT HIP HAS BEEN HURTING RADIATING DOWN TO LT KNEE; PT APPEARS UNCOMFORTABLE; LAST DOSE OF ADVIL AT 1600 YESTERDAY EVENING. Historian: Patient Arrival Mode: Car Onset (how long ago): day(s) Severity: mild Duration (how long): day(s) Timing of current episode: constant Progression: unchanged Chronicity: new Past Medical/Family History Physician Review I have reviewed the patient's past medical and family history. Any updates have been documented here. Past Medical History Recent Fever: No Clinical Suspicion of Infectio: No New/Unexplained Change in Ment: No Past Medical History: Hypertension, Diabetes, CHF, Hypothyroidism, Hepatitis C, Kidney Stones, Anxiety, GERD, Hyperlipedemia, Osteoarthritis Other Medical History: GASTRITIS Past Surgical History: Cholecysctectomy, Appendectomy, Hysterectomy, CABG, C- Section, Hip Replacement, Knee Replacement Other Surgery: back surgery hip surgery knee surgery X2 Social History Smoking Cessation: Unknown if ever smoked Alcohol Use: None Any Illegal Drug Use: No Other Last Tetanus: UTD Any Pre-Existing Lines (PICC,: No Review of Systems Review of Systems Constitutional: Reports no symptoms EENTM: Reports no symptoms Cardiovascular: Reports no symptoms Respiratory: Reports no symptoms Gastrointestinal: Reports no symptoms Genitourinary: Reports no symptoms Musculoskeletal: Reports as per HPI Integumentary: Reports no symptoms Neurological: Reports no symptoms Psychological: Reports no symptoms Endocrine: Reports no symptoms Hematological/Lymphatic: Reports no symptoms Physical Exam Related Data Allergies: Coded Allergies: Beef Containing Products (Verified Allergy, Unknown, NOSE RUNNING, 09/08/19) Penicillins (Verified Allergy, Unknown, 09/02/18) shrimp (Verified Allergy, Unknown, NOSE RUNS, 09/08/19) Triage Vital Signs Vital Signs Date Time Temp Pulse Resp B/P (MAP) Pulse Ox O2 Delivery O2 Flow Rate FiO2 04/01/20 03:10 98.2 58 20 200/69 100 Room Air Vital signs reviewed: Yes Physical Exam CONSTITUTIONAL Constitutional: Present well-developed, Present well-nourished HENT HENT: Present normocephalic, Present atraumatic, Present oropharynx clear/moist, Present nose normal HENT L/R: Present left ext ear normal, Present right ext ear normal EYES Eyes: Reports PERRL, Reports conjunctivae normal NECK Neck: Present ROM normal PULMONARY Pulmonary: Present effort normal, Present breath sounds normal CARDIOVASCULAR Cardiovascular: Present regular rhythm, Present heart sounds normal, Present capillary refill normal, Present normal rate GASTROINTESTINAL Abdominal: Present soft, Present nontender, Present bowel sounds normal GENITOURINARY Genitourinary: Present exam deferred SKIN Skin: Present warm, Present dry MUSCULOSKELETAL Musculoskeletal: Present ROM normal NEUROLOGICAL Neurological: Present alert, Present oriented x 3, Present no gross motor or sensory deficits PSYCHOLOGICAL Psychological: Present mood/affect normal, Present judgement normal Results Imaging Imaging results reviewed: Yes Impressions IMPRESSION: No acute displaced fracture. Degenerative changes. Stable right hip arthroplasty hardware. Signed by: Mayur Conde DO on 04/01/2020 4:51 AM Assessment & Plan Medical Decision Making MDM 84-year-old female arrived to the ED with left-sided hip pain. X-ray findings unremarkable. Patient's pain control the ED. Recommend outpatient orthopedic follow-up for further workup and management. Assessment & Plan Final Impression: (1) Hip strain Depart Disposition: HOME, SELF-CARE Last Vital Signs Date Time Temp Pulse Resp B/P (MAP) Pulse Ox O2 Delivery O2 Flow Rate FiO2 04/01/20 03:15 56 20 172/69 99 Room Air 04/01/20 03:10 98.2 Home Meds Active Scripts Tramadol Hcl (ULTRAM) 50 Mg Tablet, 50 MG PO Q6HR PRN for Mild Pain (1-3) or Fever>100.8, #12 TAB Prov:TOBIAS SR DO 04/01/20 Reported Medications Lisinopril (LISINOPRIL) 10 Mg Tablet, 40 MG PO DAILY, #30 TAB 09/09/19 Olmesartan Medoxomil (BENICAR) 20 Mg Tablet, 5 MG PO DAILY, #30 TAB 09/09/19 Hydroxychloroquine Sulfate (HYDROXYCHLOROQUINE SULFATE) 200 Mg Tablet, 200 MG PO BID 09/09/19 Cetirizine Hcl (CETIRIZINE HCL) 10 Mg Tablet, 10 MG PO DAILY 09/09/19 Montelukast Sodium (MONTELUKAST SODIUM) 10 Mg Tablet, 10 MG PO DAILY, #30 TAB 09/09/19 Ibuprofen (ADVIL) 200 Mg Tablet, 4 TAB PO HS PRN for MOD 09/08/19 Pyridoxine Hcl (VITAMIN B-6) 50 Mg Tablet, 50 MG PO DAILY 09/08/19 Cyanocobalamin (VITAMIN B-12) 1,000 Mcg Tab, 1000 MCG PO DAILY, #30 TAB 09/08/19 Docusate Sodium (STOOL SOFTENER) 100 Mg Capsule, PO BID 2 CAPSULES IN THE MORNING 1 CAPSULE AT NIGHT 09/08/19 Aspirin (ASPIR 81) 81 Mg Tablet.dr, 81 MG PO DAILY 09/08/19 Tramadol Hcl (ULTRAM) 50 Mg Tablet, 50 MG PO DAILY PRN for MODERATE PAIN (4-6), TAB 09/08/19 Metformin Hcl (METFORMIN HCL) 500 Mg Tablet, 500 MG PO DAILY, #60 TAB 09/08/19 Oxybutynin Chloride (OXYBUTYNIN CHLORIDE) 5 Mg Tablet, 1 TAB PO DAILY, #30 TAB 09/08/19 Ranitidine Hcl (RANITIDINE HCL) 300 Mg Tablet, 300 MG PO HS 09/08/19 Levothyroxine Sodium (LEVOXYL) 75 Mcg Tablet, 75 MCG PO DAILY 09/04/18 Furosemide (LASIX) 20 Mg Tablet, PO BID 2 TABLETS IN THE MORNING 1 TABLET AT NIGHT 09/04/18 Simvastatin (SIMVASTATIN) 40 Mg Tablet, 40 MG PO DAILY 09/04/18 Duloxetine Hcl (CYMBALTA) 30 Mg Capsule.dr, 30 MG PO BID 09/04/18 Carvedilol (CARVEDILOL) 12.5 Mg Tablet, 12.5 MG PO BID 09/04/18 Omeprazole (OMEPRAZOLE) 40 Mg Capsule.dr, 40 MG PO DAILY 09/04/18 Prednisone (PREDNISONE) 5 Mg Tablet, 5 MG PO DAILY 09/04/18 Leflunomide (LEFLUNOMIDE) 20 Mg Tablet, 20 MG PO DAILY 09/04/18 Nitroglycerin (NITROSTAT) 0.4 Mg Tab.subl, 0.4 MG PO PRN for CHEST PAIN 06/07/15 Folic Acid (FOLIC ACID) 1 Mg Tablet, 400 MCG PO BID 12/25/12 Vitamin E (VITAMIN E) 400 Unit Capsule, 400 UNIT PO DAILY 12/25/12 Ascorbate Calcium (VITAMIN C) 500 Mg Tablet, 500 MG PO DAILY 12/25/12 Calcium Carb/Vit D3/Minerals (CALCIUM 600 + D TABLET) 1 Each Tablet, PO DAILY 12/25/12 Medications in the ED Acetaminophen/ Hydrocodone Bitart 1 ea Q6H PRN PO MODERATE PAIN (4-6) Last administered on 04/01/20at 03:33; Admin Dose 1 EA; Start 04/01/20 at 03:30; Stop 04/08/20 at 03:29 TOBIAS SR DO Apr 01, 2020 04:41
--- NOTE | 2020-04-01 04:55 | Diagnostic Imaging Report ---
X-ray bilateral hips 2 views each and x-pelvis 1 view HISTORY: Pain. COMPARISON: Hip x-rays 09/02/2018 FINDINGS: Bones: No acute displaced fracture. Intact right hip total arthroplasty hardware, although the acetabular cup is more vertically oriented than typical. Joints: No dislocations. Lumbar scoliosis. Degenerative changes in the spine hips and pelvis. Soft tissues: Surgical clips in the left inguinal area. IMPRESSION: No acute displaced fracture. Degenerative changes. Stable right hip arthroplasty hardware. Signed by: Mayur Conde DO on 04/01/2020 4:51 AM
[2020-04-01] MEDS ORDERED: ULTRAM50 MG PO (04:59)
== END 2020-04-01 05:13 | disposition home or self-care (01) ==
LOC: ER 04:21
DX: M25.552 Pain in left hip (principal); S73.102A Unspecified sprain of left hip, initial encounter; W18.30XA Fall on same level, unspecified, initial encounter; Y93.01 Activity, walking, marching and hiking; I10 Essential (primary) hypertension; E11.9 Type 2 diabetes mellitus without complications; E78.5 Hyperlipidemia, unspecified; K21.9 Gastro-esophageal reflux disease without esophagitis; F41.9 Anxiety disorder, unspecified; B19.20 Unspecified viral hepatitis C without hepatic coma; E03.9 Hypothyroidism, unspecified; Z95.1 Presence of aortocoronary bypass graft
CPT/HCPCS: 73522; 99283

== ENCOUNTER 2020-05-17 05:31 | Inpatient (IN) | payer MEDICARE ==
[2020-05-12 10:39] LABS: BASOPHILS # (AUTO) 0.1 (0.0-0.1); BASOPHILS % 1.1 % (0.0-1.0); EOSINOPHILS # (AUTO) 0.3 (0.0-0.4); EOSINOPHILS % 4.2 % (0.0-6.0); HEMATOCRIT 36.8 % (34.2-44.1); HEMOGLOBIN 11.5 g/dL (12.0-16.0); LYMPHOCYTES # (AUTO) 1.1 (1.0-3.2); LYMPHOCYTES % 15.8 % (18.0-39.1); MEAN CORPUSCULAR HEMOGLOBIN 29.3 pg (28-32); MEAN CORPUSCULAR HGB CONC 31.3 g/dL (31-35); MEAN CORPUSCULAR VOLUME 93.9 fL (81-99); MONOCYTES # (AUTO) 0.8 (0.2-0.8); NEUTROPHILS # (AUTO) 4.9 (2.1-6.9); NEUTROPHILS % 67.6 % (38.7-80.0); PLATELET COUNT 246 x10e3/uL (140-360); RED BLOOD COUNT 3.92 x10e6/uL (3.6-5.1); RED CELL DISTRIBUTION WIDTH 14.3 % (11.7-14.4)
[2020-05-12 11:07] LABS: ANION GAP 13.9 mmol/L (8-16); CALCIUM 9.3 mg/dL (8.4-10.2); CREATININE, SERUM 1.01 mg/dL (0.57-1.11); POTASSIUM 3.9 mmol/L (3.5-5.1)
[~2020-05-17] VITALS: Ht 170.8 cm; Wt 101.2 kg
[2020-05-17] MEDS ORDERED: CELECOXIB 200 MG CAP ONE (06:32)
[2020-05-17] MEDS ORDERED: DEXAMETHASONE SOD PHOS 10 MG/1 ML VIAL ONE (06:33)
[2020-05-17] MEDS ORDERED: CEFAZOLIN SOD 1 GM/NS 50ML 100 ML IV ONE (06:33)
[2020-05-17] MEDS ORDERED: GABAPENTIN 300 MG CAP ONE (06:33)
[2020-05-17] MEDS ORDERED: VANCOMYCIN HCL 1,000 MG ONE (06:42)
[2020-05-17] MEDS ORDERED: TRANEXAMIC ACID 1,000 MG/10 ML ML ONE (06:43)
[2020-05-17] MEDS ORDERED: SODIUM CHLORIDE 0.9% 500ML 500 ML ONE (06:49)
[2020-05-17] MEDS ORDERED: ROPIVACAINE 246.25 MG, EPINEPHRINE HCL 1:1000 1ML 0.5 MG, CLONIDINE HCL 0.08 MG, KETORO... INJ ONE ×5 (07:30)
[2020-05-17] MEDS ORDERED: HYDROMORPHONE 1MG/1ML INJ ONE (09:00)
[2020-05-17] MEDS ORDERED: HYDROCODONE/APAP 5MG-325MG TAB PO PRN (09:45)
[2020-05-17] MEDS ORDERED: ACETAMINOPHEN 650 MG SUPP PR PRN (09:45)
[2020-05-17] MEDS ORDERED: DIPHENHYDRAMINE HCL INJ 50 MG/ML VIAL IV PRN (09:45)
[2020-05-17] MEDS ORDERED: DOCUSATE SODIUM 100 MG CAP PO PRN (09:45)
[2020-05-17] MEDS ORDERED: ONDANSETRON HCL INJ 2MG/ML 2ML 2 MG/ML VIAL IV PRN (09:45)
[2020-05-17 11:02] VITALS: BP 153/65
[2020-05-17 11:15] VITALS: BP 153/66
[2020-05-17 11:35] VITALS: BP 153/65
[2020-05-17] MEDS: SODIUM CHLORIDE 0.9% 1000ML 1,000 ML IV SCH (11:52)
[2020-05-17] MEDS ORDERED: FENTANYL CITRATE/PF 100MCG/2 ML INJ ONE (12:22)
[2020-05-17] MEDS ORDERED: PROPOFOL IV EMULSION 10 MG/ML 20 ML VIAL ONE (12:52)
[2020-05-17] MEDS ORDERED: LIDOCAINE HCL 2% LOCAL INJ 5 ML SDV VIAL INJ ONE (12:52)
[2020-05-17] MEDS ORDERED: SEVOFLURANE INHAL SOLN 250 ML PEN BTL ONE (12:52)
[2020-05-17] MEDS ORDERED: NEOSTIGMINE 1 MG/ML 10ML VIAL ONE (12:52)
[2020-05-17] MEDS ORDERED: ONDANSETRON HCL INJ 2MG/ML 2ML 2 MG/ML VIAL ONE (12:52)
[2020-05-17] MEDS ORDERED: ROCURONIUM BROMIDE 10 MG/ML 5ML VIAL IV ONE (12:52)
[2020-05-17] MEDS ORDERED: GLYCOPYRROLATE INJ 0.2 MG/ML VIAL ONE (12:52)
[2020-05-17] MEDS: CEFAZOLIN SOD 1 GM/NS 50ML 50 ML IV SCH ×2 (15:47→23:54)
[2020-05-17 16:00] VITALS: BP 141/61
[2020-05-17] MEDS: CELECOXIB 200 MG CAP PO SCH (16:07)
[2020-05-17] MEDS: ASPIRIN 325 MG TAB PO SCH (17:26)
[2020-05-17 20:00] VITALS: BP 110/49
[2020-05-17 21:00] VITALS: BP 110/49
[2020-05-17] MEDS ORDERED: ZOLPIDEM TARTRATE 5 MG TAB PO PRN (21:00)
[2020-05-18] VITALS (8 sets, daily range): BP systolic 107–151; BP diastolic 45–79
[2020-05-18] MEDS: KETOROLAC TROMETHAMINE 30 MG/ML VIAL IV PRN ×2 (00:55→15:50)
[2020-05-18] MEDS: SODIUM CHLORIDE 0.9% 1000ML 1,000 ML IV SCH ×3 (02:32→17:19)
[2020-05-18 05:46] LABS: HEMATOCRIT 29.3 % (34.2-44.1); HEMOGLOBIN 9.1 g/dL (12.0-16.0)
[2020-05-18] MEDS: LEVOTHYROXINE SODIUM 75 MCG TAB PO SCH (06:30)
[2020-05-18] MEDS: CEFAZOLIN SOD 1 GM/NS 50ML 50 ML IV SCH (08:30)
[2020-05-18] MEDS: HYDROCODONE/APAP 7.5MG-325MG 1 EA TAB PO PRN ×3 (09:17→22:35)
[2020-05-18] MEDS: ASPIRIN 325 MG TAB PO SCH ×2 (09:20→17:18)
[2020-05-18] MEDS: CARVEDILOL 12.5 MG TAB PO SCH ×2 (09:21→17:18)
[2020-05-18] MEDS: CELECOXIB 200 MG CAP PO SCH ×2 (09:21→17:18)
[2020-05-18] MEDS: DULOXETINE HCL 30 MG DELAYED RELEASE PO SCH ×2 (09:21→17:18)
[2020-05-18] MEDS: METFORMIN HCL 500 MG TAB PO SCH (09:21)
[2020-05-18] MEDS: FUROSEMIDE 20 MG TAB PO SCH ×2 (09:22→17:18)
[2020-05-18] MEDS: SIMVASTATIN 40 MG TAB PO SCH (09:22)
[2020-05-18] MEDS ORDERED: ACETAMINOPHEN 1000 MG/100 ML IV PRN (09:45)
[2020-05-19] VITALS: BP 150/60
[2020-05-19] MEDS: SODIUM CHLORIDE 0.9% 1000ML 1,000 ML IV SCH (03:36)
[2020-05-19 04:00] VITALS: BP 126/48
[2020-05-19 05:20] LABS: HEMATOCRIT 27.3 % (34.2-44.1); HEMOGLOBIN 8.7 g/dL (12.0-16.0)
[2020-05-19] MEDS: LEVOTHYROXINE SODIUM 75 MCG TAB PO SCH (06:03)
[2020-05-19 08:00] VITALS: BP 130/51
[2020-05-19 08:41] VITALS: BP 130/51
[2020-05-19] MEDS: KETOROLAC TROMETHAMINE 30 MG/ML VIAL IV PRN (09:10)
[2020-05-19] MEDS: ASPIRIN 325 MG TAB PO SCH (09:11)
[2020-05-19] MEDS: FUROSEMIDE 20 MG TAB PO SCH (09:12)
[2020-05-19] MEDS: SIMVASTATIN 40 MG TAB PO SCH (09:12)
[2020-05-19] MEDS: METFORMIN HCL 500 MG TAB PO SCH (09:12)
[2020-05-19] MEDS: CARVEDILOL 12.5 MG TAB PO SCH (09:12)
[2020-05-19] MEDS: DULOXETINE HCL 30 MG DELAYED RELEASE PO SCH (09:12)
[2020-05-19] MEDS: CELECOXIB 200 MG CAP PO SCH (09:12)
[2020-05-19] MEDS: HYDROCODONE/APAP 7.5MG-325MG 1 EA TAB PO PRN (10:11)
[2020-05-19 11:45] VITALS: BP 117/59
[2020-05-19] MEDS ORDERED: ONDANSETRON HCL 4 MG ORAL DISINTEGRATING TAB PO PRN (12:45)
== END 2020-05-19 12:15 | disposition home or self-care (01) | DRG 468 ==
LOC: OR 05:31 → PACU V 09:41 → MED/SURG 11:04
PROVIDERS: ADMIT Specialist; ATTEND Specialist
PROC: 0SUA09Z Supplement Right Hip Joint, Acetabular Surface with Liner, Open Approach (ICD-10-PCS; 2020-05-17)
PROC: 0SP909Z Removal of Liner from Right Hip Joint, Open Approach (ICD-10-PCS; principal; 2020-05-17 08:02)
DX: T84.060A Wear of articular bearing surface of internal prosthetic right hip joint, initial encounter (principal); I10 Essential (primary) hypertension; I25.10 Atherosclerotic heart disease of native coronary artery without angina pectoris; G47.33 Obstructive sleep apnea (adult) (pediatric); E03.9 Hypothyroidism, unspecified; K21.9 Gastro-esophageal reflux disease without esophagitis; Z20.828 Contact with and (suspected) exposure to other viral communicable diseases; D64.9 Anemia, unspecified; E11.9 Type 2 diabetes mellitus without complications; M19.022 Primary osteoarthritis, left elbow; M19.021 Primary osteoarthritis, right elbow; F32.9 Major depressive disorder, single episode, unspecified
CPT/HCPCS: 36415; 71046; 72170; 80048; 85014; 85018; 85025; 86850; 86900; 86920; 93005; 97139; 99251; C1713; C1776; J0171; J0690; J1100; J1170; J1885; J2001; J2405; J2710; J2795; J3010; J3370; J7030; J7040; U0002

== ENCOUNTER 2020-05-21 17:22 | Inpatient (IN) | payer MEDICARE ==
[~2020-05-21] VITALS: Ht 170.8 cm; Wt 101.2 kg
[2020-05-21] MEDS ORDERED: HYDROMORPHONE 1MG/1ML INJ IV STA (17:41)
[2020-05-21] MEDS ORDERED: ONDANSETRON HCL INJ 2MG/ML 2ML 2 MG/ML VIAL IV STA (17:41)
[2020-05-21 18:54] LABS: BASOPHILS # (AUTO) 0.1 (0.0-0.1); BASOPHILS % 0.9 % (0.0-1.0); EOSINOPHILS # (AUTO) 0.3 (0.0-0.4); EOSINOPHILS % 5.1 % (0.0-6.0); HEMATOCRIT 30.4 % (34.2-44.1); HEMOGLOBIN 9.5 g/dL (12.0-16.0); LYMPHOCYTES # (AUTO) 0.9 (1.0-3.2); LYMPHOCYTES % 15.8 % (18.0-39.1); MEAN CORPUSCULAR HGB CONC 31.3 g/dL (31-35); MEAN CORPUSCULAR VOLUME 92.7 fL (81-99); MONOCYTES # (AUTO) 0.6 (0.2-0.8); MONOCYTES % 10.9 % (4.4-11.3); NEUTROPHILS # (AUTO) 3.9 (2.1-6.9); NEUTROPHILS % 66.8 % (38.7-80.0); PLATELET COUNT 229 x10e3/uL (140-360); RED BLOOD COUNT 3.28 x10e6/uL (3.6-5.1); RED CELL DISTRIBUTION WIDTH 13.9 % (11.7-14.4)
[2020-05-21 19:12] LABS: ALANINE AMINOTRANSFERASE 18 IU/L (0-55); ALBUMIN 2.9 g/dL (3.5-5.0); ALBUMIN/GLOBULIN RATIO 0.8 (0.8-2.0); ALKALINE PHOSPHATASE 96 IU/L (40-150); ANION GAP 12.1 mmol/L (8-16); BLOOD UREA NITROGEN 16 mg/dL (7-26); BUN/CREATININE RATIO 19 (6-25); CALCIUM 8.9 mg/dL (8.4-10.2); CARBON DIOXIDE 28 mmol/L (22-29); CHLORIDE 102 mmol/L (98-107); CREATININE, SERUM 0.84 mg/dL (0.57-1.11); EST GLOMERULAR FILTRATION RATE > 60 ML/MIN (60-); GLUCOSE 142 mg/dL (74-118); POTASSIUM 4.1 mmol/L (3.5-5.1); SODIUM 138 mmol/L (136-145)
[2020-05-21 22:30] VITALS: BP 145/59
[2020-05-22] VITALS (8 sets, daily range): BP systolic 129–178; BP diastolic 45–91
[2020-05-22] MEDS: HYDROMORPHONE 1MG/1ML INJ IV PRN ×4 (03:08→21:19)
[2020-05-22] MEDS: ONDANSETRON HCL INJ 2MG/ML 2ML 2 MG/ML VIAL IV PRN ×2 (03:09→06:47)
[2020-05-22] MEDS ORDERED: NITROGLYCERIN 0.4 MG SUBL SL PRN (07:45)
[2020-05-22] MEDS ORDERED: DOCUSATE SODIUM 100 MG CAP PO SCH (09:00)
[2020-05-22] MEDS ORDERED: FUROSEMIDE 20 MG TAB PO SCH (09:00)
[2020-05-22] MEDS: CYANOCOBALAMIN 1,000 MCG TAB PO SCH (10:21)
[2020-05-22] MEDS: ASPIRIN 81 MG CHEW TAB PO SCH (10:21)
[2020-05-22] MEDS: CARVEDILOL 12.5 MG TAB PO SCH ×2 (10:22→18:35)
[2020-05-22] MEDS: DULOXETINE HCL 30 MG DELAYED RELEASE PO SCH ×2 (10:22→18:31)
[2020-05-22] MEDS: METFORMIN HCL 500 MG TAB PO SCH (10:29)
[2020-05-22] MEDS: OXYBUTYNIN CHLORIDE 5 MG TAB PO SCH (10:29)
[2020-05-22] MEDS: PREDNISONE 5 MG TAB PO SCH (10:29)
[2020-05-22] MEDS: MONTELUKAST SODIUM 10 MG TAB PO SCH (10:30)
[2020-05-22] MEDS: PANTOPRAZOLE SOD 40 MG TABEC PO SCH (10:30)
[2020-05-22] MEDS: LISINOPRIL 20 MG TAB PO SCH (10:30)
[2020-05-22] MEDS: SIMVASTATIN 40 MG TAB PO SCH (10:31)
[2020-05-22] MEDS: PYRIDOXINE HCL 50 MG TAB PO SCH (10:31)
[2020-05-22] MEDS: LEVOTHYROXINE SODIUM 75 MCG TAB PO SCH (10:31)
[2020-05-22] MEDS: VITAMIN E 400 UNIT CAP PO SCH (10:31)
[2020-05-22] MEDS: DOCUSATE SODIUM 100 MG CAP PO SCH ×2 (18:35→21:15)
[2020-05-22] MEDS: FUROSEMIDE 20 MG TAB PO SCH (21:13)
[2020-05-23] VITALS (8 sets, daily range): BP systolic 100–143; BP diastolic 54–75
[2020-05-23] MEDS: HYDROMORPHONE 1MG/1ML INJ IV PRN ×2 (01:38→05:45)
[2020-05-23] MEDS: LISINOPRIL 20 MG TAB PO SCH (09:00)
[2020-05-23] MEDS: CARVEDILOL 12.5 MG TAB PO SCH ×2 (09:00→17:00)
[2020-05-23] MEDS: ASPIRIN 81 MG CHEW TAB PO SCH (09:21)
[2020-05-23] MEDS: DOCUSATE SODIUM 100 MG CAP PO SCH ×2 (09:21→21:57)
[2020-05-23] MEDS: METFORMIN HCL 500 MG TAB PO SCH (09:25)
[2020-05-23] MEDS: PREDNISONE 5 MG TAB PO SCH (09:25)
[2020-05-23] MEDS: OXYBUTYNIN CHLORIDE 5 MG TAB PO SCH (09:25)
[2020-05-23] MEDS: LEVOTHYROXINE SODIUM 75 MCG TAB PO SCH (09:25)
[2020-05-23] MEDS: MONTELUKAST SODIUM 10 MG TAB PO SCH (09:25)
[2020-05-23] MEDS: CYANOCOBALAMIN 1,000 MCG TAB PO SCH (09:25)
[2020-05-23] MEDS: PANTOPRAZOLE SOD 40 MG TABEC PO SCH (09:25)
[2020-05-23] MEDS: DULOXETINE HCL 30 MG DELAYED RELEASE PO SCH ×2 (09:25→17:00)
[2020-05-23] MEDS: PYRIDOXINE HCL 50 MG TAB PO SCH (09:25)
[2020-05-23] MEDS: SIMVASTATIN 40 MG TAB PO SCH (09:26)
[2020-05-23] MEDS: VITAMIN E 400 UNIT CAP PO SCH (09:26)
[2020-05-23] MEDS: FUROSEMIDE 40 MG TAB PO SCH (18:47)
[2020-05-23] MEDS: FUROSEMIDE 20 MG TAB PO SCH (21:57)
[2020-05-24] MEDS: HYDROMORPHONE 1MG/1ML INJ IV PRN ×5 (00:04→22:20)
[2020-05-24 00:34] VITALS: BP 151/56
[2020-05-24 04:00] VITALS: BP 136/82
[2020-05-24] MEDS: FUROSEMIDE 40 MG TAB PO SCH (08:21)
[2020-05-24] MEDS: LISINOPRIL 20 MG TAB PO SCH (08:21)
[2020-05-24] MEDS: ASPIRIN 81 MG CHEW TAB PO SCH (08:21)
[2020-05-24] MEDS: DULOXETINE HCL 30 MG DELAYED RELEASE PO SCH ×2 (08:21→17:16)
[2020-05-24] MEDS: METFORMIN HCL 500 MG TAB PO SCH (08:21)
[2020-05-24] MEDS: OXYBUTYNIN CHLORIDE 5 MG TAB PO SCH (08:21)
[2020-05-24] MEDS: DOCUSATE SODIUM 100 MG CAP PO SCH ×2 (08:21→21:31)
[2020-05-24] MEDS: CARVEDILOL 12.5 MG TAB PO SCH ×2 (08:21→17:16)
[2020-05-24] MEDS: LEVOTHYROXINE SODIUM 75 MCG TAB PO SCH (08:22)
[2020-05-24] MEDS: VITAMIN E 400 UNIT CAP PO SCH (08:22)
[2020-05-24] MEDS: CYANOCOBALAMIN 1,000 MCG TAB PO SCH (08:22)
[2020-05-24] MEDS: PANTOPRAZOLE SOD 40 MG TABEC PO SCH (08:22)
[2020-05-24] MEDS: PREDNISONE 5 MG TAB PO SCH (08:22)
[2020-05-24] MEDS: MONTELUKAST SODIUM 10 MG TAB PO SCH (08:22)
[2020-05-24] MEDS: SIMVASTATIN 40 MG TAB PO SCH (08:22)
[2020-05-24] MEDS: PYRIDOXINE HCL 50 MG TAB PO SCH (08:22)
[2020-05-24 08:30] VITALS: BP 150/75
[2020-05-24 12:20] VITALS: BP 155/52
[2020-05-24 16:00] VITALS: BP 136/61
[2020-05-24 20:00] VITALS: BP 140/40
[2020-05-24] MEDS: FUROSEMIDE 20 MG TAB PO SCH (21:31)
[2020-05-25] VITALS (7 sets, daily range): BP systolic 112–148; BP diastolic 47–106
[2020-05-25] MEDS: GABAPENTIN 100 MG CAP PO SCH ×3 (06:10→21:11)
[2020-05-25] MEDS ORDERED: GABAPENTIN 100 MG CAP PO SCH (09:00)
[2020-05-25] MEDS: ASPIRIN 81 MG CHEW TAB PO SCH (09:16)
[2020-05-25] MEDS: DOCUSATE SODIUM 100 MG CAP PO SCH ×2 (09:16→21:10)
[2020-05-25] MEDS: LEVOTHYROXINE SODIUM 75 MCG TAB PO SCH (09:17)
[2020-05-25] MEDS: MONTELUKAST SODIUM 10 MG TAB PO SCH (09:17)
[2020-05-25] MEDS: PYRIDOXINE HCL 50 MG TAB PO SCH (09:17)
[2020-05-25] MEDS: OXYBUTYNIN CHLORIDE 5 MG TAB PO SCH (09:17)
[2020-05-25] MEDS: METFORMIN HCL 500 MG TAB PO SCH (09:17)
[2020-05-25] MEDS: CYANOCOBALAMIN 1,000 MCG TAB PO SCH (09:17)
[2020-05-25] MEDS: VITAMIN E 400 UNIT CAP PO SCH (09:17)
[2020-05-25] MEDS: PREDNISONE 5 MG TAB PO SCH (09:17)
[2020-05-25] MEDS: BALSAM PERU/CASTOR OIL 60 GM OINT...G. TP SCH (09:17)
[2020-05-25] MEDS: FUROSEMIDE 40 MG TAB PO SCH (09:17)
[2020-05-25] MEDS: LISINOPRIL 20 MG TAB PO SCH (09:17)
[2020-05-25] MEDS: SIMVASTATIN 40 MG TAB PO SCH (09:17)
[2020-05-25] MEDS: CARVEDILOL 12.5 MG TAB PO SCH ×2 (09:17→17:14)
[2020-05-25] MEDS: DULOXETINE HCL 30 MG DELAYED RELEASE PO SCH ×2 (09:17→17:14)
[2020-05-25] MEDS: PANTOPRAZOLE SOD 40 MG TABEC PO SCH (09:17)
[2020-05-25] MEDS: HYDROMORPHONE 1MG/1ML INJ IV PRN (10:40)
[2020-05-25] MEDS: FUROSEMIDE 20 MG TAB PO SCH (21:10)
[2020-05-26] VITALS: BP 135/45
[2020-05-26] MEDS: HYDROMORPHONE 1MG/1ML INJ IV PRN ×4 (00:37→15:34)
[2020-05-26 04:00] VITALS: BP 131/45
[2020-05-26 07:41] VITALS: BP 134/46
[2020-05-26 08:25] VITALS: BP 134/46
[2020-05-26] MEDS ORDERED: ONDANSETRON HCL 4 MG ORAL DISINTEGRATING TAB PO PRN (09:00)
[2020-05-26] MEDS: ASPIRIN 81 MG CHEW TAB PO SCH (09:23)
[2020-05-26] MEDS: CARVEDILOL 12.5 MG TAB PO SCH ×2 (09:23→17:07)
[2020-05-26] MEDS: DOCUSATE SODIUM 100 MG CAP PO SCH (09:23)
[2020-05-26] MEDS: DULOXETINE HCL 30 MG DELAYED RELEASE PO SCH ×2 (09:24→17:07)
[2020-05-26] MEDS: FUROSEMIDE 40 MG TAB PO SCH (09:24)
[2020-05-26] MEDS: GABAPENTIN 300 MG CAP PO SCH ×2 (09:24→15:33)
[2020-05-26] MEDS: METFORMIN HCL 500 MG TAB PO SCH (09:24)
[2020-05-26] MEDS: OXYBUTYNIN CHLORIDE 5 MG TAB PO SCH (09:24)
[2020-05-26] MEDS: PANTOPRAZOLE SOD 40 MG TABEC PO SCH (09:25)
[2020-05-26] MEDS: PREDNISONE 5 MG TAB PO SCH (09:25)
[2020-05-26] MEDS: MONTELUKAST SODIUM 10 MG TAB PO SCH (09:25)
[2020-05-26] MEDS: LISINOPRIL 20 MG TAB PO SCH (09:25)
[2020-05-26] MEDS: BALSAM PERU/CASTOR OIL 60 GM OINT...G. TP SCH (09:26)
[2020-05-26] MEDS: SIMVASTATIN 40 MG TAB PO SCH (09:26)
[2020-05-26] MEDS: CYANOCOBALAMIN 1,000 MCG TAB PO SCH (09:26)
[2020-05-26] MEDS: PYRIDOXINE HCL 50 MG TAB PO SCH (09:26)
[2020-05-26] MEDS: LEVOTHYROXINE SODIUM 75 MCG TAB PO SCH (09:26)
[2020-05-26] MEDS: VITAMIN E 400 UNIT CAP PO SCH (09:26)
[2020-05-26 11:44] VITALS: BP 138/56
[2020-05-26 15:37] VITALS: BP 126/69
== END 2020-05-26 18:06 | DRG 561 ==
LOC: ER 17:27 → ERHOLD 20:09 → MED/SURG 21:20 → OBSVTOIN 05-24 08:14
PROVIDERS: ADMIT Internal Medicine; ATTEND Internal Medicine
DX: T84.84XA Pain due to internal orthopedic prosthetic devices, implants and grafts, initial encounter (principal); E11.9 Type 2 diabetes mellitus without complications; S70.02XA Contusion of left hip, initial encounter; I25.10 Atherosclerotic heart disease of native coronary artery without angina pectoris; Z95.1 Presence of aortocoronary bypass graft; Z20.822 Contact with and (suspected) exposure to COVID-19; E78.5 Hyperlipidemia, unspecified; E11.51 Type 2 diabetes mellitus with diabetic peripheral angiopathy without gangrene; D64.9 Anemia, unspecified; E78.00 Pure hypercholesterolemia, unspecified; M16.11 Unilateral primary osteoarthritis, right hip; F32.9 Major depressive disorder, single episode, unspecified
CPT/HCPCS: 36415; 80053; 85025; 93925; 97139; 99251; 99284; G0378; J1170; J2405; J7512; U0002

== ENCOUNTER 2020-07-21 07:18 | Inpatient (IN) | payer MEDICARE ==
[~2020-07-21] VITALS: Ht 167.6 cm; Wt 98.9 kg
[2020-07-21] MEDS ORDERED: NITROGLYCERIN 0.4 MG SUBL SL PRN (07:30)
[2020-07-21] MEDS ORDERED: ASPIRIN 325 MG TAB PO ONE (07:45)
[2020-07-21] MEDS: FENTANYL CITRATE/PF 100MCG/2 ML INJ IV PRN ×3 (07:48→16:29)
[2020-07-21 08:03] LABS: BASOPHILS # (AUTO) 0.1 (0.0-0.1); BASOPHILS % 0.9 % (0.0-1.0); EOSINOPHILS # (AUTO) 0.3 (0.0-0.4); EOSINOPHILS % 3.3 % (0.0-6.0); HEMATOCRIT 39.1 % (34.2-44.1); HEMOGLOBIN 12.4 g/dL (12.0-16.0); LYMPHOCYTES # (AUTO) 2.4 (1.0-3.2); LYMPHOCYTES % 30.4 % (18.0-39.1); MEAN CORPUSCULAR HEMOGLOBIN 28.3 pg (28-32); MEAN CORPUSCULAR HGB CONC 31.7 g/dL (31-35); MEAN CORPUSCULAR VOLUME 89.3 fL (81-99); MONOCYTES # (AUTO) 0.9 (0.2-0.8); MONOCYTES % 11.3 % (4.4-11.3); NEUTROPHILS # (AUTO) 4.2 (2.1-6.9); NEUTROPHILS % 53.7 % (38.7-80.0); PLATELET COUNT 280 x10e3/uL (140-360); RED BLOOD COUNT 4.38 x10e6/uL (3.6-5.1); RED CELL DISTRIBUTION WIDTH 14.4 % (11.7-14.4)
[2020-07-21 08:25] LABS: ALBUMIN 3.7 g/dL (3.5-5.0); ANION GAP 17.9 mmol/L (8-16); CALCIUM 9.1 mg/dL (8.4-10.2); CREATININE, SERUM 1.24 mg/dL (0.57-1.11); POTASSIUM 3.9 mmol/L (3.5-5.1)
[2020-07-21 08:54] LABS: INR 0.92; PROTHROMBIN TIME 12.9 seconds (11.9-14.5)
[2020-07-21 08:55] LABS: PARTIAL THROMBOPLASTIN TIME 30.9 seconds (23.8-35.5)
[2020-07-21 10:31] LABS: CHOL/HDL RATIO 3.1 (3.0-3.6)
[2020-07-21 12:03] VITALS: BP 166/76
[2020-07-21 12:08] VITALS: BP 166/76
[2020-07-21] MEDS: HYDROXYCHLOROQUINE SULFATE 200 MG TAB PO SCH (12:24)
[2020-07-21] MEDS: LEVOTHYROXINE SODIUM 75 MCG TAB PO SCH (12:24)
[2020-07-21] MEDS: DULOXETINE HCL 30 MG DELAYED RELEASE PO SCH (12:24)
[2020-07-21] MEDS: ONDANSETRON HCL INJ 2MG/ML 2ML 2 MG/ML VIAL IV PRN ×2 (12:25→16:29)
[2020-07-21] MEDS: ACETAMINOPHEN 325 MG TAB PO PRN ×2 (12:25→22:28)
[2020-07-21 15:39] VITALS: BP 102/64
[2020-07-21] MEDS: CARVEDILOL 12.5 MG TAB PO SCH (16:42)
[2020-07-21] MEDS ORDERED: ENOXAPARIN SOD INJ 40 MG/0.4 ML SYR SC SCH (17:00)
[2020-07-21 18:10] LABS: CREATINE KINASE MB 16.2 ng/mL (0-5.0)
[2020-07-21 20:00] VITALS: BP 117/58
[2020-07-21 21:00] VITALS: BP 117/58
[2020-07-21] MEDS ORDERED: ZOLPIDEM TARTRATE 5 MG TAB PO PRN (21:00)
[2020-07-21] MEDS: ENOXAPARIN SODIUM INJ 100 MG/ML SYR SC SCH (21:00)
[2020-07-21] MEDS: SIMVASTATIN 40 MG TAB PO SCH (22:14)
[2020-07-21 23:57] VITALS: BP 136/51
[2020-07-22] VITALS (7 sets, daily range): BP systolic 130–159; BP diastolic 61–85
[2020-07-22] MEDS: HYDROMORPHONE 1MG/1ML INJ IV PRN ×4 (03:39→23:54)
[2020-07-22 05:02] LABS: BASOPHILS # (AUTO) 0.1 (0.0-0.1); BASOPHILS % 0.9 % (0.0-1.0); EOSINOPHILS # (AUTO) 0.2 (0.0-0.4); EOSINOPHILS % 2.8 % (0.0-6.0); HEMATOCRIT 36.4 % (34.2-44.1); HEMOGLOBIN 11.6 g/dL (12.0-16.0); LYMPHOCYTES # (AUTO) 1.1 (1.0-3.2); LYMPHOCYTES % 13.6 % (18.0-39.1); MEAN CORPUSCULAR HEMOGLOBIN 28.2 pg (28-32); MEAN CORPUSCULAR HGB CONC 31.9 g/dL (31-35); MEAN CORPUSCULAR VOLUME 88.3 fL (81-99); MONOCYTES # (AUTO) 0.8 (0.2-0.8); MONOCYTES % 10.1 % (4.4-11.3); NEUTROPHILS # (AUTO) 5.8 (2.1-6.9); NEUTROPHILS % 72.3 % (38.7-80.0); PLATELET COUNT 230 x10e3/uL (140-360); RED BLOOD COUNT 4.12 x10e6/uL (3.6-5.1); RED CELL DISTRIBUTION WIDTH 14.3 % (11.7-14.4)
[2020-07-22 05:19] LABS: ANION GAP 12.1 mmol/L (8-16); CALCIUM 8.5 mg/dL (8.4-10.2); CREATININE, SERUM 0.93 mg/dL (0.57-1.11); POTASSIUM 4.1 mmol/L (3.5-5.1)
[2020-07-22] MEDS: LEVOTHYROXINE SODIUM 75 MCG TAB PO SCH (06:00)
[2020-07-22 06:22] LABS: CREATINE KINASE MB 8.4 ng/mL (0-5.0)
[2020-07-22] MEDS ORDERED: PANTOPRAZOLE SOD 40 MG TABEC PO ONE (07:30)
[2020-07-22] MEDS: ASPIRIN 81 MG CHEW TAB PO SCH (09:00)
[2020-07-22] MEDS: ENOXAPARIN SODIUM INJ 100 MG/ML SYR SC SCH ×2 (09:00→20:29)
[2020-07-22] MEDS: DULOXETINE HCL 30 MG DELAYED RELEASE PO SCH ×2 (09:00→16:34)
[2020-07-22] MEDS: MONTELUKAST SODIUM 10 MG TAB PO SCH (09:00)
[2020-07-22] MEDS: PYRIDOXINE HCL 50 MG TAB PO SCH (09:00)
[2020-07-22] MEDS: HYDROXYCHLOROQUINE SULFATE 200 MG TAB PO SCH ×2 (09:00→16:34)
[2020-07-22] MEDS: CARVEDILOL 12.5 MG TAB PO SCH ×2 (09:00→16:34)
[2020-07-22] MEDS ORDERED: MIDAZOLAM HCL 2 MG/2 ML VIAL ONE ×2 (09:11→10:31)
[2020-07-22] MEDS ORDERED: LIDOCAINE HCL 2% LOCAL 20 ML VIAL ONE (09:12)
[2020-07-22] MEDS ORDERED: IOPAMIDOL 370 MG/ML 200 ML INFUS..BTL INJ ONE (09:12)
[2020-07-22] MEDS ORDERED: SODIUM CHLORIDE 0.9% 1000ML 1,000 ML ONE (09:12)
[2020-07-22] MEDS ORDERED: HEPARIN SOD/SOD CHLORIDE 2,000 ML ONE (09:12)
[2020-07-22] MEDS ORDERED: FENTANYL CITRATE/PF 100MCG/2 ML INJ ONE (09:12)
[2020-07-22] MEDS ORDERED: ADENOSINE 3MG/1ML 30ML VIAL ONE (10:31)
[2020-07-22] MEDS ORDERED: SODIUM CHLORIDE 0.9% 50ML 50 ML ONE (10:32)
[2020-07-22] MEDS ORDERED: CLOPIDOGREL BISULFATE 75 MG TAB PO ONE (11:45)
[2020-07-22] MEDS: ISOSORBIDE MONONITRATE 30 MG TAB CR PO SCH (11:45)
[2020-07-22] MEDS ORDERED: SODIUM CHLORIDE 0.9% 1000ML 1,000 ML IV SCH (12:15)
[2020-07-22] MEDS ORDERED: MAGNESIUM HYDROXIDE 30 ML UDC PO ONE (17:00)
[2020-07-22] MEDS: DOCUSATE SODIUM 100 MG CAP PO SCH (18:42)
[2020-07-22] MEDS: SENNOSIDES 8.6 MG TAB PO SCH (18:43)
[2020-07-22] MEDS: SIMVASTATIN 40 MG TAB PO SCH (20:29)
[2020-07-23] VITALS: BP 136/67
[2020-07-23 04:00] VITALS: BP 141/92
[2020-07-23] MEDS: HYDROMORPHONE 1MG/1ML INJ IV PRN (05:22)
[2020-07-23] MEDS: LEVOTHYROXINE SODIUM 75 MCG TAB PO SCH (05:22)
[2020-07-23] MEDS ORDERED: ISOSORBIDE MONO30 MG PO (06:13)
[2020-07-23] MEDS ORDERED: Isosorbide Mononitrate PO (06:13)
[2020-07-23] MEDS ORDERED: PLAVIX75 MG PO (06:13)
[2020-07-23] MEDS ORDERED: METHYLPREDNISOLONE SOD SUCC 40 MG/ML VIAL 1ML IV ONE (06:50)
[2020-07-23] MEDS ORDERED: MELOXICAM 7.5 MG TAB PO ONE (06:50)
[2020-07-23 07:29] VITALS: BP 137/70
[2020-07-23] MEDS: ACETAMINOPHEN 325 MG TAB PO PRN (08:17)
[2020-07-23 08:45] VITALS: BP 137/70
[2020-07-23] MEDS: ENOXAPARIN SODIUM INJ 100 MG/ML SYR SC SCH (09:00)
[2020-07-23] MEDS: DOCUSATE SODIUM 100 MG CAP PO SCH (09:00)
[2020-07-23] MEDS: MONTELUKAST SODIUM 10 MG TAB PO SCH (09:00)
[2020-07-23] MEDS ORDERED: BALSAM PERU/CASTOR OIL 60 GM OINT...G. TP SCH (09:00)
[2020-07-23] MEDS: DULOXETINE HCL 30 MG DELAYED RELEASE PO SCH (09:00)
[2020-07-23] MEDS: PYRIDOXINE HCL 50 MG TAB PO SCH (09:00)
[2020-07-23] MEDS: ISOSORBIDE MONONITRATE 30 MG TAB CR PO SCH (09:00)
[2020-07-23] MEDS: HYDROXYCHLOROQUINE SULFATE 200 MG TAB PO SCH (09:00)
[2020-07-23] MEDS: CARVEDILOL 12.5 MG TAB PO SCH (09:00)
[2020-07-23] MEDS ORDERED: CLOPIDOGREL BISULFATE 75 MG TAB PO SCH (09:00)
[2020-07-23] MEDS: SENNOSIDES 8.6 MG TAB PO SCH (09:00)
[2020-07-23] MEDS: ASPIRIN 81 MG CHEW TAB PO SCH (09:00)
[2020-07-24] MEDS ORDERED: MELOXICAM 7.5 MG TAB PO SCH (09:00)
[2020-07-24] MEDS ORDERED: PREDNISONE 5 MG TAB PO SCH (09:00)
== END 2020-07-23 11:00 | disposition home or self-care (01) | DRG 281 ==
LOC: ER 07:25 → ERHOLD 09:26 → MED/SURG2 11:40 → OBSVTOIN 07-22 11:50
PROVIDERS: ADMIT Internal Medicine; ATTEND Internal Medicine
PROC: 4A023N7 Measurement of Cardiac Sampling and Pressure, Left Heart, Percutaneous Approach (ICD-10-PCS; principal; 2020-07-22)
PROC: B2111ZZ Fluoroscopy of Multiple Coronary Arteries using Low Osmolar Contrast (ICD-10-PCS; 2020-07-22)
PROC: B2131ZZ Fluoroscopy of Multiple Coronary Artery Bypass Grafts using Low Osmolar Contrast (ICD-10-PCS; 2020-07-22)
DX: I21.4 Non-ST elevation (NSTEMI) myocardial infarction (principal); I25.810 Atherosclerosis of coronary artery bypass graft(s) without angina pectoris; I25.10 Atherosclerotic heart disease of native coronary artery without angina pectoris; I10 Essential (primary) hypertension; E78.5 Hyperlipidemia, unspecified; M16.11 Unilateral primary osteoarthritis, right hip; Z96.641 Presence of right artificial hip joint; K21.9 Gastro-esophageal reflux disease without esophagitis; F41.9 Anxiety disorder, unspecified; Z20.822 Contact with and (suspected) exposure to COVID-19
CPT/HCPCS: 36415; 71045; 80048; 80053; 80061; 82550; 82553; 83036; 83690; 83880; 84484; 85025; 85379; 85610; 85730; 93005; 93455; 99153; 99251; 99284; C1753; C1769; C1887; G0378; J0153; J1170; J1650; J2001; J2250; J2405; J2920; J3010; J7030; Q9967; U0002

== ENCOUNTER 2021-03-02 13:07 | Emergency (ER) | payer MEDICARE ==
[~2021-03-02] VITALS: Ht 167.6 cm; Wt 92.5 kg
[2021-03-02] MEDS: CASIRIVIMAB/IMDEVIMAB 10 ML in SODIUM CHLORIDE 0.9% 100 ML IV ONE ×2 (12:45→13:30)
[~2021-03-02 13:07] MED LIST changes: +ISOSORBIDE MONO30 MG PO; +Isosorbide Mononitrate PO; +PLAVIX75 MG PO
== END 2021-03-02 15:28 | disposition home or self-care (01) ==
LOC: ER 13:23
DX: U07.1 COVID-19 (principal); I10 Essential (primary) hypertension; I50.9 Heart failure, unspecified; E03.9 Hypothyroidism, unspecified; I25.10 Atherosclerotic heart disease of native coronary artery without angina pectoris; F41.9 Anxiety disorder, unspecified; K21.9 Gastro-esophageal reflux disease without esophagitis; Z95.1 Presence of aortocoronary bypass graft; Z96.641 Presence of right artificial hip joint; Z96.653 Presence of artificial knee joint, bilateral
CPT/HCPCS: 99283; J7050